=== PATIENT | female | born 1955 | race Caucasian/White ===

== ENCOUNTER 2016-06-27 07:52 | Outpatient (CLI) | payer MEDICAID ==
[2016-04-04 08:05] VITALS: BMI 17.8
[~2016-06-27 07:52] MED LIST: ATIVAN0.5 MG PO; FERROUS SULFAT325 MG PO; LEVOXYL175 MCG PO; NEURONTIN600 MG PO; PAXIL30 MG PO; PEPCID AC20 MG PO; PERCOCET 10/3251 TA1 PO; PLAVIX75 MG PO; PROTONIX40 MG PO; TRAZODONE HCL50 MG PO
[2016-06-27 09:20] LABS: BASOPHILS 0.3 % (0.0-2.0); EOSINOPHILS 0.6 % (0-7); HEMATOCRIT 45.4 % (36.0-48.0); HEMOGLOBIN 15.1 g/dL (12-16); IMMATURE GRANULOCYTES 0.3 % (0-5); LYMPHOCYTES 24.6 % (15-50); MCH 29.7 pg (26.0-34.0); MCHC 33.3 g/dL (31.0-37.0); MCV 89.2 fL (80.0-100.0); NEUTROPHILS 68.2 % (40-80); PLATELET COUNT 214 10x3/uL (130-400); RBC 5.09 10x6/uL (4.00-5.40); RDW 15.4 % (11.5-14.5); WBC 6.5 10x3/uL (4.8-10.8)
[2016-06-27 09:28] LABS: APTT 34.4 SECONDS (22.8-39.4); INR 1.03 (0.85-1.17); PROTIME 13.4 SECONDS (11.6-15.0)
== END 2016-06-27 07:53 | disposition home or self-care (01) ==
LOC: D.LAB 07:52 → D.OPS 07:53 → D.RT 08:00
PROVIDERS: Internal Medicine Pulmonary Disease
DX: J44.9 Chronic obstructive pulmonary disease, unspecified (principal)

== ENCOUNTER 2016-07-02 05:32 | Outpatient (CLI) | payer MEDICAID ==
[~2016-07-02] VITALS: Ht 167.6 cm; Wt 50.9 kg
[2016-07-02 06:55] LABS: BASOPHILS 0.7 % (0.0-2.0); EOSINOPHILS 2.5 % (0-7); HEMATOCRIT 39.7 % (36.0-48.0); IMMATURE GRANULOCYTES 0.4 % (0-5); LYMPHOCYTES 23.7 % (15-50); MCH 29.3 pg (26.0-34.0); MCHC 32.7 g/dL (31.0-37.0); MCV 89.4 fL (80.0-100.0); MEAN PLATELET VOLUME 10.6 fL (7.4-10.4); MONOCYTES 11.2 % (2-11); NEUTROPHILS 61.5 % (40-80); PLATELET COUNT 190 10x3/uL (130-400); RBC 4.44 10x6/uL (4.00-5.40); RDW 15.5 % (11.5-14.5); WBC 5.7 10x3/uL (4.8-10.8)
[2016-07-02 07:02] VITALS: BP 152/74; Ht 167.6 cm; Wt 50.9 kg
[2016-07-02 07:02] LABS: CALC OSMOLALITY 280 mosm/kg (275-300); CALCIUM 8.9 mg/dL (8.5-10.1); CARBON DIOXIDE 28.2 mmol/L (21.0-32.0); CHLORIDE - SERUM 104 mmol/L (98-107); CREATININE - SERUM 0.7 mg/dL (0.6-1.3); GLUCOSE 117 mg/dL (74-106); POTASSIUM - SERUM 4.1 mmol/L (3.5-5.1); SODIUM 141 mmol/L (136-145); UREA NITROGEN 9 mg/dL (7-18); eGFR NON AFRICAN AMERICAN > 90 mL/min (90-120)
[2016-07-02 07:03] LABS: APTT 35.6 SECONDS (22.8-39.4); INR 1.12 (0.85-1.17); PROTIME 14.3 SECONDS (11.6-15.0)
--- NOTE | 2016-07-02 09:16 | NUR ---
0900 RECEIVED PT FROM SPECIALS, PT IS ALERT, DRESSSING TO LEFT ANTERIOR UPPER CHEST IS CDI. RR IS EVEN AND UNLABORED ON 2 LPM O2 VIA NC. PT DENIES ANY C/O AT THIS TIME. SEE VS FLOW SHEET. 0910 BREAKFAST TRAY SERVED.
--- NOTE | 2016-07-02 10:38 | NUR ---
1035 PT HAS TOLERATED BREAKFAST TRAY WITH NO C.O NAUSEA. DENIES PAIN. DRESSING LEFT UPPER CHEST IS CDI. RR IS EVEN AND UNLABORED ON ROOM AIR. PT DENIES NEEDS AT THIS TIME, CALL LIGHT IS IN REACH.
--- NOTE | 2016-07-02 11:32 | NUR ---
1110 PORTABLE CHEST X RAY HAS BEEN DONE.
--- NOTE | 2016-07-02 12:46 | NUR ---
1245 PT DENIES ANY C/O. DRESSING TO CHEST IS CDI. SHELLEY, RN WITH [facility]IOLOGY HAS ROUNDED ON PT. IV HAS BEEN DC'D WITH CATH INTACT. PT IS DRESSING FOR DC TO HOME. IS AWAITING HER DAUGHTER TO ARRIVE TO PICK HER UP.
--- NOTE | 2016-07-02 13:11 | NUR ---
1305 PATIENT LEFT WITH FAMILY VIA W/C.
--- NOTE | 2016-07-02 13:12 | NUR ---
1300 REPORT FROM ABIGAIL VALADEZ R.N. LT ANTERIOR CHEST SITE NO BLEEDING NO COS OF PAIN AND CXR OKAY.
== END 2016-07-02 13:05 | disposition home or self-care (01) ==
LOC: D.OPS 05:32 → D.SP 08:00 → D.OPS 08:00
PROVIDERS: General Practice
DX: R91.8 Other nonspecific abnormal finding of lung field (principal); J43.9 Emphysema, unspecified; J98.11 Atelectasis; J90 Pleural effusion, not elsewhere classified

== ENCOUNTER 2016-08-21 06:56 | Outpatient (CLI) | payer MEDICAID ==
[~2016-08-21] VITALS: Ht 167.6 cm; Wt 51.8 kg
[2016-08-21 08:23] LABS: BASOPHILS 0.6 % (0.0-2.0); EOSINOPHILS 1.2 % (0-7); HEMATOCRIT 44.9 % (36.0-48.0); IMMATURE GRANULOCYTES 0.4 % (0-5); LYMPHOCYTES 27.6 % (15-50); MCH 29.6 pg (26.0-34.0); MCHC 33.4 g/dL (31.0-37.0); MCV 88.7 fL (80.0-100.0); MEAN PLATELET VOLUME 10.9 fL (7.4-10.4); NEUTROPHILS 62.2 % (40-80); PLATELET COUNT 196 10x3/uL (130-400); RBC 5.06 10x6/uL (4.00-5.40); RDW 14.5 % (11.5-14.5); WBC 5.1 10x3/uL (4.8-10.8)
[2016-08-21 08:32] LABS: APTT 32.7 SECONDS (22.8-39.4); INR 1.08 (0.85-1.17); PROTIME 13.9 SECONDS (11.6-15.0)
[2016-08-21 08:34] LABS: CALC OSMOLALITY 282 mosm/kg (275-300); CALCIUM 9.3 mg/dL (8.5-10.1); CHLORIDE - SERUM 105 mmol/L (98-107); CREATININE - SERUM 0.7 mg/dL (0.6-1.3); GLUCOSE 125 mg/dL (74-106); POTASSIUM - SERUM 4.1 mmol/L (3.5-5.1); SODIUM 142 mmol/L (136-145); UREA NITROGEN 9 mg/dL (7-18); eGFR NON AFRICAN AMERICAN > 90 mL/min (90-120)
[2016-08-21 08:52] VITALS: BP 176/86; Ht 167.6 cm; Wt 51.8 kg
== END 2016-08-21 09:43 ==
LOC: D.OPS 06:56 → D.CT 13:00 → D.RAD 13:00 → D.OPS 13:00 → D.CT 08-25 08:00
PROVIDERS: General Practice
DX: C82.93 Follicular lymphoma, unspecified, intra-abdominal lymph nodes (principal); D50.9 Iron deficiency anemia, unspecified; I25.10 Atherosclerotic heart disease of native coronary artery without angina pectoris; J44.9 Chronic obstructive pulmonary disease, unspecified; K21.9 Gastro-esophageal reflux disease without esophagitis; E78.5 Hyperlipidemia, unspecified; Z01.810 Encounter for preprocedural cardiovascular examination; Z01.811 Encounter for preprocedural respiratory examination; Z01.812 Encounter for preprocedural laboratory examination; Z53.9 Procedure and treatment not carried out, unspecified reason

== ENCOUNTER 2016-09-15 05:08 | Day surgery (SDC) | payer MEDICAID ==
--- NOTE | 2016-09-13 12:15 | HP ---
PATIENT: ANETTE LEWIS MEDICAL RECORD: [id number] ACCOUNT: [id number] LOCATION:D.OPS : 59 ADMISSION DATE: 09/15/16 HISTORY AND PHYSICAL EXAMINATION ANETTE Hughes (60yo, F) ID# [id number]. Date/Time09/05/2016 10:17TYSBZ24/1956[facility] Dept.NPP_[facility] ClinicProviderEDWILLIE WELSH MDInsuranceMed Primary: [place]) Insurance # : [id number] PCP : RICARDO WALLS Referring Provider Name : RICARDO WALLS Employer Name : RETIRED Prescription: [facility] MEDICAID [facility] - Member is eligible. Chief Complaint Lung mass referral for bronch/mediastinoscopy Patient's Care Team Primary Care Provider (): RICARDO WALLS: [address] [place] [phone], , Referring Provider (): RICARDO WALLS: [address] [place] [phone], , Roofer Vinyl Coating: PORSCHE CALLES MD: [address] [phone], , Other: ARNOLD DILL MD: [address] [place] [address], , Patient's Pharmacies [facility] (ERX): [address] [place] [address] [place] [address], , Vitals BP:152/90 sitting R arm 09/05/2016 11:05 amHR:88R/R 09/05/2016 11:05 amHt:5 ft 6 in 09/05/2016 10:47 amWt:112 lbs 09/05/2016 11:04 amBMI:18.1 09/05/2016 11:04 amAllergies Reviewed Allergies NKDAMedications Reviewed Medications Anoro Ellipta 62.5 mcg-25 mcg/actuation powder for inhalation Inhale 1 puff(s) every day by inhalation route.07/10/16 Ariadna Calles MDfamotidine 20 mg /04/16 filledMagellan Medicaid Administrationfluticasone 50 mcg/actuation nasal spray,suspension [place] 2 spray(s) every day by intranasal route.06/12/16 filled[place] Medicaid Administrationgabapentin 600 mg lshuys10/12/17 filledMag[place] Medicaid Administrationlevothyroxine 200 mcg uveokp68/25/15 filledCtgellan Medicaid AdministrationLORazepam 0.5 mg fzdmuw15/07/16 filled[place] Medicaid AdministrationoxyCODONE-acetaminophen 10 mg-325 mg ddvubq22/01/17 filled[place] Medicaid Administrationpantoprazole 40 mg tablet,delayed fbgdwas31/08/17 filled[place] Medicaid AdministrationPARoxetine 40 mg gsupqh40/06/17 filled[place] Medicaid AdministrationtraZODone 50 mg ddryeb68/13/16 filledMag[place] Medicaid AdministrationProblems Reviewed Problems Solitary nodule of lung - Onset: 09/05/2016 Mediastinal mass - Onset: 09/05/2016 History of malignant lymphoma - Onset: 09/05/2016 Gastroesophageal reflux disease Jean's esophagus HISTORY AND PHYSICAL [id number] ANETTE LEWIS Malignant tumor of lung - Onset: 09/03/2016, Left Vascular ectasia of gastric antrum Polyp of duodenum Family History Discussed Family History Mother- Well adultFather- Heart diseaseBrother- AneurysmSocial History Discussed Social History General Marital status: Smoking Status: Current every day smoker Smoker (1 PPD) (Notes: up to 1.5 pack per day and started at 18) Alcohol intake: None Caffeine intake: Occasional Surgical History Reviewed Surgical History CABG SENIOR DATABASE ADMINISTRATOR History (not configured) Obstetric History Obstetric History not reviewed (last reviewed 07/12/2016) Past Medical History Discussed Past Medical History Cancer: Y Coronary Artery Disease: Y Heart Disease: Y Hypothyroidism: Y Notes: osteopenia, non-Hodgkin's lymphoma around pancr eas in [address] Arnold Dill with chemotherapy in remission with no new adjuvant radiation, neuropathy, CT bx DONNA with chrondroma. Documents for Discussion N/A Screening None recorded. HPI Dyspnea Reported by patient. Quality: dyspnea Onset/Timing: daily Context: with activity tumor left upper lobe Mediastinal adenopathy History malignant lymphoma ROS Patient reports weight loss (20 lbs) but reports no fever, no night sweats, no significant weight gain, and no exercise intolerance. She reports muscle aches but reports no muscle weakness, no arthralgias/joint pain, no back pain, and no swelling in the extremities. She reports depression but reports no sleep disturbances, feeling safe in relationship, and no alcohol abuse. She reports fatigue and hair loss. She reports no dry eyes, no irritation, and no vision change. She reports no difficulty hearing and no ear pain. She reports no frequent nosebleeds and no nose/sinus problems. She reports no sore throat, no bleeding gums, no snoring, no dry mouth , no mouth ulcers, no oral abnormalities, and no teeth problems. She HISTORY AND PHYSICAL [id number] JOSHUAANETTE RETA reports no jugular vein distension and no swollen glands. She reports no chest pain, no arm pain on exertion, no shortness of breath when walking, no shortness of breath when lying down, no palpitations, and no known heart murmur. She reports no cough, no wheezing, no shortness of breath, and no coughing up blood. She reports no abdominal pain, no vomiting, normal appetite, no diarrhea, not vomiting blood, no nausea, and no constipation. S he reports no incontinence, no difficulty urinating, no hematuria, and no increased frequency. She reports no abnormal mole, no jaundice, and no rashes. She reports no loss of consciousness, no weakness, no numbness, no seizures, no dizziness, and no head aches. She reports no swollen glands and no bruising. She reports no runny nose, no sinus pressure, no itching, no hives, and no frequent sneezing. ROS as noted in the HPI Physical Exam Patient is a 60-year-old female. Constitutional: General Appearance: too thin. Level of Distress: no acute distress. Ambulation: ambulating normally. Ears: Cerumen negative. Canal: no erythema or swelling. Tympanic Membrane: no bulging or fluid and perforated. Nasal: Nasal Mucosa: normal, no discharge, and pink and moist. Septum: not markedly deformed. Oropharynx: Lips, Teeth, and Gums normal dentition and lips. Oral Mucosa no ulcer, mass, inflammation, swelling, or leukoplakia and moist. Palate: normal hard palate and soft palate. Tongue: no erythema, lesi ons, enlargement, or swelling. Tonsils: no enlargement or lesions. Posterior Pharynx no enlargement, erythema, exudate, ulcers, mass, cobblestoning, or white patches. Neck: Neck: supple, trachea midline, no masses, and Full ROM. Thyroid: no enlargement or nodules and non-tender. Jugular Veins: no jugular venous distention or bush a waves present and normal jugular venous pressure. Lungs: Respiratory effort: unlabored. Inspection: normal curve and chest wall expansion; no deformity, tenderness, or swelli ng; and tactile fremitus present and equal on both sides. Auscultation: no wheezing, rales/crackles, or rhonchi and breath sounds normal. Percussion: hyperresonance. Cardiovascular: Precordial Exam: non displaced focal PMI. Heart Rate And Rhythm: normal h eart rate and rhythm. Heart Sounds: no gallop, click, physiologically split S2, or pericardial friction rub and normal s1. Systolic Murmur: no systolic murmurs. Diastolic Murmur: no diastolic murmurs. Observation/Palpation of peripheral vascular system: n o cyanosis or varicosity changes and normal dorsalis pedis and posterior tibialis. Abdomen: Inspection and Palpation: no tenderness or masses and soft and non-distended. Liver: non-tender and no hepatomegaly. Spleen: non-tender and no splenomegaly. Bowel S ounds: normal and no abdominal bruits. Lymphatic: no cervical lymph enlargement, axillary LAD, inguinal LAD, femoral LAD, supraclavicular LAD, or popliteal LAD. Musculoskeletal:: Motor Strength and Tone: normal bulk, tone, and motor strength. Gait and Sta tion: normal gait, station, and tandem gait. Joints, Bones, and Muscles: no contractures, malalignment, tenderness, scoliosis, kyphosis, or bony HISTORY AND PHYSICAL [id number] ANETTE LEWIS abnormalities and normal movement of all extremities. Extremities: Inspection/Palpation of digits and nails: no clubbing, cyanosis, petechiae, ischemia, edema, or nodular lesions; no palpable adenopathy. Skin: Inspection and palpation: no rash, lesions, jaundice, ulcer, erythema, or induration and normal turgor. Neurologic: Mental Status/Orientation: oriented to person, place, problem/situation, and time. Mood/Affect: normal mood and affect. Sensation sensation normal. Cranial Nerves cranial nerves II - XII intact. Deep Tendon Reflexes upper extremities positive and lower extremities positive. Assessment / Plan solitary pulmonary nodule Mediastinal adenopathy History of malignant lymphoma 1. Solitary nodule of lung R91.1: Solitary pulmonary nodule 2. History of malignant lymphoma Z85.72: Personal history of non-Hodgkin lymphomas 3. Mediastinal mass R22.2: Localized swelling, mass and lump, trunk Discussion Notes agree with Dr. Calles. The patient would benefit from bronchoscopy mediastinoscopy for a diagnosis of mediastinal lymphadenopathy.. The lesion in the left upper lobe may be a hamartoma. I hav e discussed her disease process with her in detail as well as the alternative methods of treatment. We discussed bronchoscopy mediastinoscopy and the expected benefits and risk leaving, infection, stroke, and , and the imponderables. She understands all of the above and wishes to proceed with planned procedure. JUVENTINO WELSH MD at 1215 CC: [id number] DICTATION DATE: 09/05/16 1015 RESIDENT CARE COORDINATOR: TITI 09/10/16 1423 [facility] [address] [place] [address]
[~2016-09-15] VITALS: Ht 162.6 cm; Wt 50.5 kg
--- NOTE | ~2016-09-15 | OP ---
PATIENT NAME: ANETTE LEWIS MEDICAL RECORD: [id number] :59 LOCATION:.[facility] ADMISSION DATE: SURGEON: JUVENTINO VAZQUEZ MD DATE OF OPERATION: 09/15/2016 SURGEON: Juventino Vazquez MD ANESTHESIA: General, Dr. Steele. OPERATION PERFORMED: 1. Mediastinoscopy with biopsies and cultures. 2. Flexible fiberoptic bronchoscopy with bronchioalveolar lavage. PREOPERATIVE DIAGNOSIS: Mediastinal lymphadenopathy. POSTOPERATIVE DIAGNOSIS: Granulomatous mediastinal lymphadenopathy. INDICATION FOR OPERATION: Mediastinal lymphadenopathy. FINDINGS OF THE OPERATION: Mediastinal lymphadenopathy frozen section demonstrated no tumor and granulomatous disease. SPECIMENS: 1. Subcarinal lymph node biopsy. 2. Pretracheal lymph node. 3. Left paratracheal lymph node. 4. Tissue cultures of the mediastinum for TB and routine bilateral bronchial washings for TB and fungus. ESTIMATED BLOOD LOSS: Less than 5 cc. DESCRIPTION OF PROCEDURE: After informed consent, adequate preoperative medication evaluation, the patient was brought to the operating room and placed on the table in the supine position. After induction of general endotracheal anesthesia and application of appropriate monitoring devices, the neck and chest were prepped and draped in a sterile field, utilizing Betadine scrub, alcohol, and Betadine solution. Betadine-impregnated drape was also used. A small 2-cm transverse incision was made, 2 cm above the sternal notch. Dissection carried down the fascia. Hemostasis maintained with electrocautery. The pretracheal fascia was entered and scope was advanced to the collin. There were large lymph nodes at the subcarinal area. Biopsies were taken. The scope was then withdrawn into the pretracheal area. After aspiration, another set of biopsies were taken anteriorly. Attention was then turned toward the left lateral lymph node and biopsies were taken of this area. Hemostasis was assured. Wound was irrigated. Cultures were taken of the mediastinal lymph nodes in the subcarinal area. The scope was then removed. The neck was closed with 3-0 Vicryl on the platysma, 5-0 subcuticular Monocryl on the skin. Sterile dressings were applied. The patient then underwent flexible fiberoptic bronchoscopy. The tracheobronchial tree was normal bilaterally. Bronchioalveolar lavage was performed in both upper lobes. The right and left for TB and fungus. The scope was removed. The patient awakened and transferred to the postanesthesia recovery in satisfactory condition. TRANSINT:[id number] Voice Confirmation ID: [id number] DOCUMENT ID: [id number] OPERATIVE REPORT [id number] ANETTE LEWIS EDWARD MD CC: [id number] DICTATION DATE: 09/15/16899 CAREER TECHNICAL SUPERVISOR: 09/15/16 1053 [facility] [address] [place] [id number]
[2016-09-15 05:51] VITALS: BP 145/64; Ht 162.6 cm; Wt 50.5 kg
[2016-09-15 06:10] LABS: BASOPHILS 0.3 % (0.0-2.0); EOSINOPHILS 0.8 % (0-7); HEMATOCRIT 43.7 % (36.0-48.0); HEMOGLOBIN 14.8 g/dL (12-16); IMMATURE GRANULOCYTES 0.2 % (0-5); LYMPHOCYTES 21.5 % (15-50); MCH 29.7 pg (26.0-34.0); MCHC 33.9 g/dL (31.0-37.0); MCV 87.6 fL (80.0-100.0); MEAN PLATELET VOLUME 10.8 fL (7.4-10.4); MONOCYTES 6.8 % (2-11); NEUTROPHILS 70.4 % (40-80); PLATELET COUNT 225 10x3/uL (130-400); RBC 4.99 10x6/uL (4.00-5.40); RDW 14.7 % (11.5-14.5); WBC 6.1 10x3/uL (4.8-10.8)
[2016-09-15] MEDS ORDERED: NORVASC5 MG PO (06:11)
[2016-09-15 06:13] LABS: INR 0.98 (0.85-1.17); PROTIME 12.8 SECONDS (11.6-15.0)
[2016-09-15 06:43] LABS: ALBUMIN 3.4 g/dL (3.4-5.0); ALKALINE PHOSPHATASE 173 U/L (46-116); ALT (SGPT) 21 U/L (10-68); CALC OSMOLALITY 280 mosm/kg (275-300); CALCIUM 9.1 mg/dL (8.5-10.1); CARBON DIOXIDE 26.6 mmol/L (21.0-32.0); CHLORIDE - SERUM 104 mmol/L (98-107); CREATININE - SERUM 0.7 mg/dL (0.6-1.3); GLUCOSE 127 mg/dL (74-106); POTASSIUM - SERUM 3.6 mmol/L (3.5-5.1); PROTEIN - SERUM 6.6 g/dL (6.4-8.2); SODIUM 141 mmol/L (136-145); UREA NITROGEN 8 mg/dL (7-18); eGFR NON AFRICAN AMERICAN > 90 mL/min (90-120)
--- NOTE | 2016-09-15 08:42 | NUR ---
CULTURE SWAB TO LAB FOR TB CULTURE
--- NOTE | 2016-09-15 09:22 | NUR ---
0908 PT'S B/P 193/ DR. BENITEZ'S AT BEDSIDE. NEW ORDERS REC'D HYDRALIZINE GIVEN PER MD'S ORDER.
--- NOTE | 2016-09-15 15:07 | NUR ---
6643 DISCHARGE INSTRUCTIONS REVIEWED WITH PATIENT; VERBALIZED UNDERSTANDING
[2016-09-16 17:10] LABS: ACID FAST SMEAR Negative (()); AFB SPECIMEN PROCESSING Concentration (())
[2016-09-17 13:16] LABS: FUNGUS STAIN Final report (())
== END 2016-09-15 11:50 | disposition home or self-care (01) ==
LOC: D.OPS 05:08
PROVIDERS: Internal Medicine Cardiovascular Disease
DX: J98.59 Other diseases of mediastinum, not elsewhere classified (principal); F17.200 Nicotine dependence, unspecified, uncomplicated; E03.9 Hypothyroidism, unspecified; I25.10 Atherosclerotic heart disease of native coronary artery without angina pectoris; M85.80 Other specified disorders of bone density and structure, unspecified site; K21.9 Gastro-esophageal reflux disease without esophagitis; Z95.1 Presence of aortocoronary bypass graft; Z85.72 Personal history of non-Hodgkin lymphomas

== ENCOUNTER → 2016-09-25 10:14 | Outpatient (CLI) | payer MEDICAID ==
[2016-09-15 05:51] VITALS: BMI 19.2
[~2016-09-25 10:14] MED LIST changes: +NORVASC5 MG PO
== END | disposition home or self-care (01) ==
LOC: D.RAD 10:14
DX: Z98.890 Other specified postprocedural states (principal)

== ENCOUNTER → 2016-10-08 13:42 | Outpatient (CLI) | payer MEDICAID ==
[2016-09-15 05:51] VITALS: BMI 19.2
[2016-10-08 14:16] LABS: CREATININE - SERUM 0.8 mg/dL (0.6-1.3)
== END | disposition home or self-care (01) ==
LOC: D.LAB 13:42 → D.CT 14:30
PROVIDERS: Internal Medicine Pulmonary Disease
DX: R91.8 Other nonspecific abnormal finding of lung field (principal)

== ENCOUNTER 2016-11-12 05:00 | Inpatient (IN) | payer MEDICAID ==
--- NOTE | 2016-11-10 08:32 | HP ---
PATIENT: ANETTE LEWIS MEDICAL RECORD: [id number] ACCOUNT: [id number] LOCATION:[facility] : 59 ADMISSION DATE: 11/12/16 HISTORY AND PHYSICAL EXAMINATION ANETTE Hughes (60yo, F) ID# [id number]. Date/Time11/06/2016 01:[id number] 1957Service Dept.NPP_[facility] ClinicProviderEDWILLIE WELSH MDInsuranceMed Primary: [place] ([place]) Insurance # : [id number] PCP : RICARDO WALLS Referring Provider Name : RICARDO WALLS Employer Name : RETIRED Prescription: [facility] MEDICAID [facility] - Member is eligible. Chief Complaint Followup: Mediastinal mass Followup: Solitary nodule of lung s/p CABG 10/09/04 s/p bronch/mediastinoscopy 09/15/16 Patient's Care Team Primary Care Provider (): RICARDO WALLS: [address] [place] [phone], , Referring Provider (): RICARDO WALLS: [address] [place] [phone], , Tunnel Drier Operator: PORSCHE CALLES MD: [address] [phone], , Other: ARNOLD DILL MD: [address] [place] [address], , Patient's Pharmacies [facility] (ERX): [address] [place] [phone], , Vitals BP:150/82 sitting R arm 11/06/2016 02:18 pmHR:80R/R 11/06/2016 02:18 pmHt:5 ft 6 in 11/06/2016 02:14 pmWt:110 lbs 11/06/2016 02:17 pmBMI:17.8 11/06/2016 02:17 pmAllergies Allergies not reviewed (last reviewed 10/16/2016) NKDAMedications Medications not reviewed (last reviewed 10/16/2016) Anoro Ellipta 62.5 mcg-25 mcg/actuation powder for inhalation Inhale 1 puff(s) every day by inhalation route.10/23/16 Ariadna Calles MDfamotidine 20 mg axvqag00/04/16 filledMagellan Medicaid Administrationfluticasone 50 mcg/actuation nasal spray,suspension [place] 2 spray(s) every day by intranasal route.06/12/16 filledMag[place] Medicaid Administrationgabapentin 600 mg keliii98/12/17 filledMag[place] Medicaid Administrationlevothyroxine 200 mcg rlodpy29/25/15 filledVagellan Medicaid AdministrationLORazepam 0.5 mg /07/16 filled[place] Medicaid AdministrationoxyCODONE-acetaminophen 10 mg-325 mg hijwnr60/01/17 filled[place] Medicaid Administrationpantoprazole 40 mg tablet,delayed ctekefd74/08/17 [facility]Ad[facility]lan Medicaid AdministrationPARoxetine 40 mg viipbn96/06/17 filledVagellan Medicaid AdministrationtraZODone 50 mg ryhame51/13/16 filledVagellan Medicaid AdministrationProblems Reviewed Problems Solitary nodule of lung - Onset: 09/05/2016 Mediastinal mass - Onset: 09/05/2016 History of malignant lymphoma - Onset: 09/05/2016 HISTORY AND PHYSICAL [id number] ANETTE LEWIS Gastroesophageal reflux disease Jean's esophagus Malignant tumor of lung - Onset: 09/03/2016, Left Vascular ectasia of gastric antrum Polyp of duodenum Family History Discussed Family History Mother- Well adultFather- Heart diseaseBrother- AneurysmSocial History Discussed Social History General Marital status: Smoking Status: Current every day smoker Smoker (1 PPD) (Notes: up to 1.5 pack per day and started at 18) Alcohol intake: None Caffeine intake: Occasional Surgical History Reviewed Surgical History CABG NET SQL DEVELOPER History (not configured) Obstetric History Obstetric History not reviewed (last reviewed 07/12/2016) Past Medical History Discussed Past Medical History Cancer: Y Coronary Artery Disease: Y Heart Disease: Y Hypothyroidism: Y Notes: osteopenia, non-Hodgkin's lymphoma around pancr eas in [address] Arnold Dill with chemotherapy in remission with no new adjuvant radiation, neuropathy, CT bx DONNA with chrondroma. Documents for Discussion N/A Screening None recorded. HPI Dyspnea Reported by patient. Associated Symptoms: no chest pain; no palpitations; no orthopnea; no PND; no fever; no chills; no wheezing; no dietary indiscretion; no sputum production; no hemoptysis; no weight gain; no dyspepsia solitary pulmonary nodule left upper lobe ROS Patient reports no fever, no night sweats, no significant weight gain, and no exercise intolerance; fatigue. She reports muscle aches but reports no muscle weakness, no arthralgias/joint pain, no back pain, and no swelling in the extremities. She reports depression but reports no sleep disturbances, feeling safe in relationship, and no alcohol abuse. She reports fatigue and hair loss. She reports no dry eyes, no irritation, and no vision change. She reports no difficulty hearing and no ear pain. She reports no frequent nosebleeds and no nose/s inus problems. She reports no sore throat, no bleeding gums, no snoring, no dry mouth, no mouth ulcers, no oral abnormalities, and no teeth problems. She reports no jugular HISTORY AND PHYSICAL [id number] JOSHUA,ANETTE RETA vein distension and no swollen glands. She reports no chest pain, no arm pain on e x ertion, no shortness of breath when walking, no shortness of breath when lying down, no palpitations, and no known heart murmur. She reports no cough, no wheezing, no shortness of breath, and no coughing up blood. She reports no abdominal pain, no vomitin g , normal appetite, no diarrhea, not vomiting blood, no nausea, and no constipation. She reports no incontinence, no difficulty urinating, no hematuria, and no increased frequency. She reports no abnormal mole, no jaundice, and no rashes. She reports no lo ss of consciousness, no weakness, no numbness, no seizures, no dizziness, and no headaches. She reports no swollen glands and no bruising. She reports no runny nose, no sinus pressure, no itching, no hives, and no frequent sneezing. ROS as noted in the HPI Physical Exam Patient is a 60-year-old female. Constitutional: General Appearance: well nourished and well developed. Level of Distress: no acute distress. Ambulation: ambulating normally. Ears: Cerumen negative. Canal: no erythema or swelling. Tympanic Membrane: no bulging or fluid and perforated. Nasal: Nasal Mucosa: normal, no discharge, and pink and moist. Septum: not markedly deformed. Oropharynx: Lips, Teeth, and Gums normal dentition and lips. Oral Mucosa no ulcer, mass, inflammation, swelling, or leukoplakia and moist. Palate: normal hard palate and soft palate. Tongue: no erythema, lesions, enlargement, or swelling. Tonsils: no enlargement or lesions. Posterior Pharynx no enlargement, e rythema, exudate, ulcers, mass, cobblestoning, or white patches. Neck: Neck: supple, trachea midline, no masses, and Full ROM. Thyroid: no enlargement or nodules and non-tender. Jugular Veins: no jugular venous distention or bush a waves present and normal jugular venous pressure. Lungs: Respiratory effort: unlabored. Inspection: normal curve and chest wall expansion; no deformity, tenderness, or swelling; and tactile fremitus present and equal on both sides. Auscultation: no wheezing, rales/crackles, or rhonchi and breath sounds normal. Percussion: no dullness, flatness, or hyperresonance. Cardiovascular: Precordial Exam: non displaced focal PMI. Heart Rate And Rhythm: normal heart rate and rhythm. Heart Sounds: no gallop, click, physiologically split S 2, or pericardial friction rub and normal s1. Systolic Murmur: no systolic murmurs. Diastolic Murmur: no diastolic murmurs. Observation/Palpation of peripheral vascular system: no cyanosis or varicosity changes and normal dorsalis pedis and posterior tibi kurtis. Abdomen: Inspection and Palpation: no tenderness or masses and soft and non-distended. Liver: non-tender and no hepatomegaly. Spleen: non-tender and no splenomegaly. Bowel Sounds: normal and no abdominal bruits. Lymphatic: no cervical lymph enlargeme nt, axillary LAD, inguinal LAD, femoral LAD, supraclavicular LAD, or popliteal LAD. Musculoskeletal:: Motor Strength and Tone: normal bulk, tone, and motor strength. Gait and Station: normal gait, station, and tandem gait. Joints, Bones, and Muscles: no c ontractures, malalignment, tenderness, scoliosis, kyphosis, or bony HISTORY AND PHYSICAL [id number] ANETTE LEWIS abnormalities and normal movement of all extremities. Extremities: Inspection/Palpation of digits and nails: no clubbing, cyanosis, petechiae, ischemia, edema, or nodular lesions; no palpable adenopathy. Skin: Inspection and palpation: no rash, lesions, jaundice, ulcer, erythema, or induration and normal turgor. Neurologic: Mental Status/Orientation: oriented to person, place, problem/situation, and time. Mood/Affect: normal mood and aff ect. Sensation sensation normal. Cranial Nerves cranial nerves II - XII intact. Deep Tendon Reflexes upper extremities positive and lower extremities positive. Assessment / Plan solitary pulmonary nodule left upper lobe 1. Solitary nodule of lung R91.1: Solitary pulmonary nodule Discussion Notes solitary pulmonary nodule left upper lobe. I have discussed her disease process with her and her daughter in detail as well as the alternative methods of treatment. We discussed left upper lobe resection and mediastinal lymphadenectomy and the expected benefits and risk which included bleeding, infection, stroke, , and the imponderables. She understands all of the above and wishes to proceed with left upper lobe re section JUVENTINO WELSH MD at 0832 CC: [id number] DICTATION DATE: 11/06/16 1330 SYSTEMS DESIGNER: TITI 11/09/16 1015 [address] [place] [address] [place] [address]
[2016-11-11 14:54] LABS: HEMATOCRIT 43.7 % (36.0-48.0); HEMOGLOBIN 14.9 g/dL (12-16); MCH 30.3 pg (26.0-34.0); MCHC 34.1 g/dL (31.0-37.0); MCV 88.8 fL (80.0-100.0); MEAN PLATELET VOLUME 10.4 fL (7.4-10.4); RBC 4.92 10x6/uL (4.00-5.40); RDW 14.2 % (11.5-14.5); WBC 6.5 10x3/uL (4.8-10.8)
[2016-11-11 15:03] LABS: APPEARANCE CLEAR (CLEAR); BILIRUBIN NEGATIVE (NEGATIVE); COLOR YELLOW (YELLOW); GLUCOSE NEGATIVE (NEGATIVE); KETONE NEGATIVE (NEGATIVE); LEUKOCYTE ESTERASE NEGATIVE (NEGATIVE); NITRITE NEGATIVE (NEGATIVE); PROTEIN NEGATIVE (NEGATIVE); UROBILINOGEN NORMAL (NORMAL)
[2016-11-11 15:17] LABS: PROTIME 13.1 SECONDS (11.6-15.0)
[2016-11-11 15:18] LABS: APTT 33.3 SECONDS (22.8-39.4)
[2016-11-11 15:36] LABS: ALBUMIN 3.9 g/dL (3.4-5.0); ALKALINE PHOSPHATASE 198 U/L (46-116); ALT (SGPT) 18 U/L (10-68); BILIRUBIN - TOTAL 0.31 mg/dL (0.2-1.3); CALC OSMOLALITY 270 mosm/kg (275-300); CALCIUM 8.9 mg/dL (8.5-10.1); CARBON DIOXIDE 27.3 mmol/L (21.0-32.0); CHLORIDE - SERUM 99 mmol/L (98-107); CREATININE - SERUM 0.8 mg/dL (0.6-1.3); GLUCOSE 96 mg/dL (74-106); POTASSIUM - SERUM 3.3 mmol/L (3.5-5.1); PROTEIN - SERUM 6.5 g/dL (6.4-8.2); SODIUM 136 mmol/L (136-145); UREA NITROGEN 9 mg/dL (7-18); eGFR NON AFRICAN AMERICAN 78 mL/min (90-120)
[2016-11-12] VITALS (53 sets, daily range): BP systolic 92–163; BP diastolic 43–72; BMI 17.8; BMI 19.0
[~2016-11-12] VITALS: Ht 167.6 cm; Wt 52.5 kg
[~2016-11-12 05:00] MED LIST changes: +NORVASC10 MG PO; -NORVASC5 MG PO; -PAXIL30 MG PO; +PAXIL40 MG PO
--- NOTE | 2016-11-12 11:15 | NUR ---
RECEIVED PT TO ROOM CV04, ICU MONITORS CONNECTED.
--- NOTE | 2016-11-12 14:14 | NUR ---
11/12/2016 14:12 DCP: Discharge Planning Patient Name: KACI BELLA Encounter No: [id number] : 10-11-1945 Primary Insurance: MEDICARE A & B Anticipated DC Date: 11-12-2016 Planned Disposition: Home External Planned Provider: [facility] DCP follow-up note: DC order rec'd. [facility] referral faxed. Patient and family in agreement with discharge plan. No changes to plan. Fernanda Lynn
--- NOTE | 2016-11-12 14:42 | NUR ---
CALLED [employer]ENTRAL SUPPLY FOR KPAD.
--- NOTE | 2016-11-12 15:18 | NUR ---
KPAD PLACED ON PT LEFT SHOULDER.
--- NOTE | 2016-11-12 15:30 | NUR ---
FAMILY AT BEDSIDE, UPDATED BY DR WELSH.
--- NOTE | 2016-11-12 18:15 | NUR ---
I/S PERFORMED X10, PULLING 750-1000.
--- NOTE | 2016-11-12 18:30 | NUR ---
SPOKE WITH DR WELSH VIA PHONE, ELEVATED TEMP REPORTED. NEW ORDERS RECEIVED.
--- NOTE | 2016-11-12 19:00 | NUR ---
REPORT RECEIVED AND ASSESSMENT COMPLETED. SEE FLOWSHEET FOR FULL DETAILS. PT IS A FRESH TUMOR REMOVAL/ PARTIAL LUNG RESECTION FROM OR TODAY. ANTERIOR AND POSTERIOR CHEST TUBES ON LEFT SIDE. 20 SM SUCTION. NO SIGN OF LEAK. 4 ML FROM ANTERIOR DRAIN 10 FROM POSTERIOR FOR THE LAST HOUR. O2 SAT 94% LUNG SOUNDS CLEAR BUT DEMINISHED ON LEFT SIDE. PT HAS EPIDURAL IN PLACE. DENIES NAUSEA, ITCHING, AND PARASTHESIAS AT THIS TIME. NITRO DRIP AT 0.5. WILL CONTINUE TO MONITOR PRESSURE AND TITRATE NEEDED. VSS.
--- NOTE | 2016-11-12 21:00 | NUR ---
URINE OUTPUT HAS BEEN LOW. PT WAS GIVEN LASIX DURING DAY SHIFT. CVP RUNNING 5. WILL CONTINUE TO MONITOR FOR CHANGES THAT MAY ARISE.
--- NOTE | 2016-11-12 23:00 | NUR ---
DR WELSH CALLED IN REGARD TO URINE OUTPUT, AND ABGS. NEW ORDERS RECEIVED. WILL ADMINISTER KCL 40 MEQ OVER 4 HR AND RECHECK LAB AFTERWARDS. REASSESSMENT COMPLETED AT THIS TIME. SEE FLOWSHEET FOR FULL DETAILS.
[2016-11-13] VITALS (92 sets, daily range): BP systolic 108–155; BP diastolic 42–73; Ht 167.6 cm; Wt 52.5 kg
--- NOTE | 2016-11-13 01:00 | NUR ---
PT B/P ELEVATED. TITRATING NITRO ORDERED.
--- NOTE | 2016-11-13 03:00 | NUR ---
REASSESSMENT COMPLETED. SEE FLOWSHEET FOR FULL DETAILS. NITRO HAS BEEN MAXED OUT. REPLACED WITH CLEVIPREX. NOW RUNNING AT 12 MG/HR. WILL TITRATE ORDERED TO OBTAIN B/P WITHIN PARAMETERS.
--- NOTE | 2016-11-13 05:00 | NUR ---
CONTINUING TO TITRATE CLEVIPREX TO EFFECT ORDERED. VSS. WILL MONITOR
[2016-11-13 05:58] LABS: HEMATOCRIT 38.5 % (36.0-48.0); HEMOGLOBIN 13.1 g/dL (12-16); MCH 30.4 pg (26.0-34.0); MCV 89.3 fL (80.0-100.0); MEAN PLATELET VOLUME 10.6 fL (7.4-10.4); RBC 4.31 10x6/uL (4.00-5.40); RDW 14.6 % (11.5-14.5)
[2016-11-13 06:37] LABS: ALBUMIN 3.1 g/dL (3.4-5.0); ALKALINE PHOSPHATASE 250 U/L (46-116); CALCIUM 8.7 mg/dL (8.5-10.1); CARBON DIOXIDE 23.5 mmol/L (21.0-32.0); CHLORIDE - SERUM 102 mmol/L (98-107); CREATININE - SERUM 0.8 mg/dL (0.6-1.3); POTASSIUM - SERUM 3.8 mmol/L (3.5-5.1); PROTEIN - SERUM 6.3 g/dL (6.4-8.2); SODIUM 137 mmol/L (136-145); eGFR NON AFRICAN AMERICAN 78 mL/min (90-120)
[2016-11-13 06:42] LABS: ALT (SGPT) 87 U/L (10-68); CALC OSMOLALITY 281 mosm/kg (275-300); GLUCOSE 200 mg/dL (74-106); UREA NITROGEN 17 mg/dL (7-18)
--- NOTE | 2016-11-13 07:00 | NUR ---
ASSESSMENT COMPLETE PER FLOW SHEET. REPOSTIONED IN BED. VSS. NO C/O AT THIS TIME.
--- NOTE | 2016-11-13 07:45 | NUR ---
DR. WELSH AT BEDSIDE. NEW ORDERS REC'D AND IMPLEMENTED.
--- NOTE | 2016-11-13 08:00 | NUR ---
DR. MANDEL WITH ANESTHESIA AT BEDSIDE CHECKING EPIDURAL. 10CC BOLUS GIVEN FOR PAIN LEVEL OF 6/10.
--- NOTE | 2016-11-13 11:00 | NUR ---
REASSESSMENT COMPLETE PER FLOW SHEET.. NO CHANGES NOTED FROM PREVIOUS ASSESSMENT.
--- NOTE | 2016-11-13 12:20 | NUR ---
RECEIVED PT FOR CARE FROM PAULINO MCLAUGHLIN RN.
--- NOTE | 2016-11-13 12:30 | NUR ---
LUNCH TRAY SERVED, REFUSED. VSS. NO C/O PAIN AT THIS TIME. WILL CONTINUE TO MONITOR.
--- NOTE | 2016-11-13 13:06 | NUR ---
* Is the patient Alert and Oriented? Yes 0 * How many steps to enter\exit or inside your home? 3 0 * PCP Dr. Campbell 0 * Pharmacy [facility] on [address] 0 * Preadmission Environment Home with Family 0 * ADLs Independent 0 * List name and contact numbers for known caregivers / representatives who currently or will assist patient after discharge: Spouse - Kendall Daughter - Estella Rivera [phone] Son in law - Angelito Rivera [phone] Son - Aashish Lewis [phone] 0 * Additional services required to return to the preadmission environment? No 0 * Can the patient safely return to the preadmission environment? Yes 0 * Has this patient been hospitalized within the prior 30 days at any hospital? No 11/13/2016 13:06 DCP: Discharge Planning Patient Name: ANETTE LEWIS Admission Status: Elective Accout number: [id number] Admission Date: 11-12-2016 : 1955 Admission Diagnosis: Attending: SAMANTHA Current LOS: 1 Anticipated DC Date: 11-18-2016 Planned Disposition: Home Primary Insurance: MEDICAID [place] Discharge Planning Comments: CM met with patient to assess dc plans/needs. Patient states she lives a home with her Kendall, who she is states is not in good health. Prior to admission, she reports she was independent with all ADL's & IADL's, not using any assistive devices for mobility. She states she has not had home health services in the past. At DC, she plans to return home with her . She states she has good family support - her daughter will be staying with her for several days to assist during her recovery. No needs identified or verbalized at this time. CM will follow & assist with DC needs.
--- NOTE | 2016-11-13 14:05 | NUR ---
PT'S O2 SAT DOWN TO 86%. AT BEDSIDE. ENCOURAGED PT TO DEEP BREATHE/COUGH. PT PULLING 750 ON INCENTIVE SPIROMETER. PT HAS PRODUCTIVE COUGH. O2 SAT INC TO 90% WITH RESP THERAPY AT BEDSIDE AND PERSISTANT ENCOURAGEMENT. WILL OBTAIN ABG AND GIVE BREATHING TREATMENT ORDERED.
--- NOTE | 2016-11-13 14:30 | NUR ---
PT INCREASED TO 4LNC.
--- NOTE | 2016-11-13 14:33 | NUR ---
NOTIFIED ALINE HURT OF ABG RESULTS AND UPDATED THEM ON PT'S STATUS. CONTINUE FREQUENT INCENTIVE SPIROMETRY AND ENCOURAGE COUGH. O2 SAT 93%.
--- NOTE | 2016-11-13 19:00 | NUR ---
REPORT RECEIVED AND ASSESSMENT COMPLETED. SINCE PREVIOUS SHIFT AN AIR LEAK HAS DEVELOPED IN ANTERIOR CHEST TUBE. CLEVIPREX NOW AT 12 MG/HR. CRACKLES CAN BE HEARD WHEN ASSESSING LUNG SOUNDS. SEE FLOWSHEET FOR FULL DETAILS. VSS. WILL CONTINUE TO MONITOR
--- NOTE | 2016-11-13 21:00 | NUR ---
CLEVIPREX ADJUSTED. PT SHOWING MUCH MORE URINE OUTPUT THAN ON PREVIOUS SHIFT. REPOSITIONED FOR COMFORT AND INSTRUCTED TO TURN COUGH AND DEEP BREATHE ORDERED. WILL CONTINUE TO MONITOR PT FOR CHANGES THROUGHOUT SHIFT.
--- NOTE | 2016-11-13 23:02 | NUR ---
REASSESSMENT COMPLETED. SEE FLOWSHEET FOR FULL DETAILS. RT IN ROOM BREATHING TREATMENT BEING ADMINISTERED. VSS. NO OTHER CHANGES AT THIS TIME.
[2016-11-14] VITALS (63 sets, daily range): BP systolic 105–159; BP diastolic 48–74
--- NOTE | 2016-11-14 01:00 | NUR ---
FULL BEDBATH AND LINEN CHANGE PERFORMED. NO OTHER CHANGES IN STATUS AT THIS TIME. VSS. WILL CONTINUE TO MONITOR.
--- NOTE | 2016-11-14 03:00 | NUR ---
REASSESSMENT COMPLETED. SEE FLOWSHEET FOR FULL DETAILS. WILL CONTINUE TO MONITOR
--- NOTE | 2016-11-14 05:00 | NUR ---
PT REPOSITIONED FOR COMFORT. NO CHANGES IN STATUS AT THIS TIME VSS. WILL MONITOR
[2016-11-14 06:17] LABS: HEMATOCRIT 36.7 % (36.0-48.0); HEMOGLOBIN 12.2 g/dL (12-16); MCH 29.7 pg (26.0-34.0); MCHC 33.2 g/dL (31.0-37.0); MCV 89.3 fL (80.0-100.0); MEAN PLATELET VOLUME 10.8 fL (7.4-10.4); RBC 4.11 10x6/uL (4.00-5.40); RDW 14.3 % (11.5-14.5); WBC 11.5 10x3/uL (4.8-10.8)
[2016-11-14 06:30] LABS: ALBUMIN 2.9 g/dL (3.4-5.0); ALKALINE PHOSPHATASE 206 U/L (46-116); BILIRUBIN - TOTAL 0.49 mg/dL (0.2-1.3); CARBON DIOXIDE 27.7 mmol/L (21.0-32.0); CHLORIDE - SERUM 99 mmol/L (98-107); CREATININE - SERUM 0.6 mg/dL (0.6-1.3); PROTEIN - SERUM 6.3 g/dL (6.4-8.2); SODIUM 136 mmol/L (136-145); eGFR NON AFRICAN AMERICAN > 90 mL/min (90-120)
[2016-11-14 06:33] LABS: ALT (SGPT) 56 U/L (10-68); CALC OSMOLALITY 272 mosm/kg (275-300); GLUCOSE 132 mg/dL (74-106); POTASSIUM - SERUM 3.3 mmol/L (3.5-5.1); UREA NITROGEN 9 mg/dL (7-18)
--- NOTE | 2016-11-14 16:00 | NUR ---
LEFT LATERAL CHEST TUBE SITE DRESSING WITH SMALL AMOUNT OF BLOOD NOTED. DRESSING CHANGED. SITE W/NO S/S OF INFECTION NOTED. PT TOLERATED WELL.
--- NOTE | 2016-11-14 20:15 | NUR ---
RECEIVED CARE OF PT, ASSESSMENT PER FLOWSHEET. PT ALERT AND ORIENTED, ON 4L O2 VIA NC, BREATH SOUNDS DIMINISHED ON LT AND IN BASES, HR SR AT A RATE OF 64, EPIDURAL DRESSING SECURED WITH NO S/S OF LEAKAGE, PPP, RT RADIAL A-LINE FLUSHED AND ZEROED, CRITICORE HARRISON PATENT WITH CLEAR YELLOW URINE IN TUBING, ON AIR OVERLAY, SCD'S AND SO'S IN PLACE, POSITIONED FOR COMFORT, PULLING AROUND 750 ON IS CONSISTENTLY WITH 1000 X 2-ENCOURAGED TO COUGH AND DEEP BREATHE, PT VERBALIZED UNDERSTANDING BUT WILL CONT TO PUSH AND ENCOURAGE.
--- NOTE | 2016-11-14 20:29 | NUR ---
CLEVIPREX GTT INITIATED PER MD ORDER FOR INCREASED BP, WILL MONITOR.
--- NOTE | 2016-11-14 21:12 | NUR ---
NO VISITORS PRESENT AT THIS TIME, PT REPOSITIONED FOR COMFORT, DENIES ANY NEEDS, CONTINUING TO TITRATE CLEVIPREX PER MD ORDER.
--- NOTE | 2016-11-14 23:30 | NUR ---
REASSESSMENT PER FLOWSHEET, PT POSITIONED FOR COMFORT WITH MINIMAL ASSISTANCE, PULLING AROUND 750 ON IS, GOOD COUGH NOTED. CONT POC.
[2016-11-15] VITALS (59 sets, daily range): BP systolic 109–152; BP diastolic 51–72
--- NOTE | 2016-11-15 01:40 | NUR ---
PT POSITIONED FOR COMFORT WITH MINIMAL ASSIST, PULLING 750-1000 ON IS, GOOD COUGH NOTED, SPUTUM EXPECTORATED BUT NOT SEEN, WILL CONT TO ENCOURAGE.
--- NOTE | 2016-11-15 03:00 | NUR ---
REASSESSMENT PER FLOWSHEET, NO ACUTE CHANGES NOTED. PT PULLING 750-1000 ON IS WITH GOOD INSPIRATORY EFFORT, LT CT X 2 WITH NO AIR LEAK NOTED, DRESSING CDI, CONT TO ENCOURAGE COUGH AND DEEP BREATHE.
--- NOTE | 2016-11-15 04:20 | NUR ---
AM CXR COMPLETED, PT TOLERATED WELL, POSITIONED FOR COMFORT. CONT POC
--- NOTE | 2016-11-15 05:20 | NUR ---
COFFEE PROVIDED PER REQUEST, PT PULLING 750-1000 ON IS WITH GOOD EFFORT, WILL CONT TO ENCOURAGE, CONT TO MONITOR.
--- NOTE | 2016-11-15 05:50 | NUR ---
PT SITTING UP IN CHAIR WATCHING TV AND DOING IS, DENIES ANY NEEDS AT THIS TIME, CALL LIGHT IN REACH, CONT POC.
[2016-11-15 06:11] LABS: HEMATOCRIT 32.4 % (36.0-48.0); MCH 29.9 pg (26.0-34.0); MEAN PLATELET VOLUME 10.8 fL (7.4-10.4); RBC 3.68 10x6/uL (4.00-5.40); RDW 13.9 % (11.5-14.5); WBC 10.1 10x3/uL (4.8-10.8)
[2016-11-15 06:37] LABS: ALBUMIN 2.6 g/dL (3.4-5.0); ALKALINE PHOSPHATASE 165 U/L (46-116); BILIRUBIN - TOTAL 0.61 mg/dL (0.2-1.3); CALC OSMOLALITY 272 mosm/kg (275-300); CALCIUM 8.9 mg/dL (8.5-10.1); CARBON DIOXIDE 26.2 mmol/L (21.0-32.0); CHLORIDE - SERUM 98 mmol/L (98-107); CREATININE - SERUM 0.6 mg/dL (0.6-1.3); GLUCOSE 164 mg/dL (74-106); POTASSIUM - SERUM 3.4 mmol/L (3.5-5.1); PROTEIN - SERUM 6.4 g/dL (6.4-8.2); SODIUM 135 mmol/L (136-145); UREA NITROGEN 9 mg/dL (7-18); eGFR NON AFRICAN AMERICAN > 90 mL/min (90-120)
[2016-11-15 06:38] LABS: ALT (SGPT) 38 U/L (10-68)
--- NOTE | 2016-11-15 06:53 | NUR ---
Brad BANG SOLDERER FURNACE NOTIFIED REGARDING EPIDURAL NEEDING TO BE REFILLED.
--- NOTE | 2016-11-15 07:27 | NUR ---
DR KAMARA IN, EPIDURAL BAG CHANGED, UPDATE GIVEN.
--- NOTE | 2016-11-15 12:08 | OP ---
PATIENT NAME: ANETTE LEWIS MEDICAL RECORD: [id number] :[birth year] LOCATION:[facility] D.CV04 ADMISSION DATE:11/12/16 SURGEON: YIFAN VAZQUEZ MD DATE OF OPERATION: 11/12/2016 SURGEON: iYfan Vazquez MD. ANESTHESIA: General endotracheal, Frank Steele MD. OPERATION PERFORMED: Left thoracotomy and resection of left superior mediastinal tumor. 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 INDICATION FOR OPERATION: Solitary pulmonary nodule left upper lobe, enlarged over the past 3 years. FINDINGS AT OPERATION: A tumor in the left upper hemithorax, attached by a small pedicle to the lung. There were dense adhesions throughout the left hemithorax secondary to previous surgery and pleural effusions. ESTIMATED BLOOD LOSS: Less than 150 mL. Frozen section demonstrates a benign tumor, probably hamartoma. DESCRIPTION OF PROCEDURE: After informed consent, adequate preoperative medication evaluation, the patient was brought to the operating room, placed on the table in the supine position. After induction of general endotracheal anesthesia and application of appropriate monitoring devices, the flexible fiberoptic bronchoscopy and placement of a double lumen tube, the patient turned in a right lateral decubitus position, left chest prepped and draped in sterile field utilizing Betadine scrub, alcohol and Betadine solution. A Betadine-impregnated drape was also used. A small posterolateral thoracotomy incision was made and dissection carried down the fascia. Hemostasis maintained with electrocautery. The serratus was spared, the fourth interspace was opened. There were dense adhesions from the upper and lower lobes to the chest wall. Utilizing a Kitner dissector, sharp and blunt dissection as well as electrocautery, the lung was dissected free of the left hemithorax. The lower lobe was mobilized as was the fissure and left upper lobe. The tumor was attached to the left internal thoracic artery that extended from the left subclavian to the left anterior descending. This was carefully dissected off the pedicle of the internal mammary artery and the tumor was almost free from the left upper lobe. Utilizing an Endo-MONICA stapler, the left upper lobe apex was resected with the tumor. The tumor was sent to pathology, felt to be a benign hamartoma, which confirmed the clinical appearance. The left upper lobe was then examined for air leaks. They were sutured with 6-0 Prolene suture. Chest was irrigated with copious amounts of antibiotic solution and normal saline. There was no active bleeding. A #28 chest tube was placed anteriorly, superiorly, posteriorly and inferiorly. The chest was again irrigated. Instrument count and sponge count were correct times 2. Chest was closed in OPERATIVE REPORT [id number] ANETTE LEWIS layers utilizing #2 Vicryl pericostal sutures, 0 Vicryl on the muscular tear, 2-0 Vicryl on the subcutaneous tissue and skin approximated with 3-0 subcuticular Monocryl. Sterile dressings were applied. The patient tolerated the procedure well. Sterile dressings were applied. The patient turned in a supine position, underwent flexible fiberoptic bronchoscopy demonstrated no endobronchial lesions or hemorrhage. The patient was then aroused and extubated and transferred to the cardiovascular ICU in stable condition. TRANSINT:[id number] Voice Confirmation ID: [id number] DOCUMENT ID: [id number] YIFAN VAZQUEZ MD at 1208 CC: [id number] DICTATION DATE: 11/12/16 1135 INDUSTRIAL ROBOTICS MECHANIC: 11/12/162033 ADM IN [place] [id number] [place] [address]
--- NOTE | 2016-11-15 19:40 | NUR ---
RESUMED CARE OF PT, ASSSESSMENT PER FLOWSHEET. PT ALERT BUT DISORIENTED TO SITUATION-EASILY REORIENTED AND ANSWERS APPROPRIATELY. REPOSITIONED FOR COMFORT, EPIDURAL SECURED AND DRESSING CDI, CT X 2 TO 20 OF SXN, NO AIR LEAK NOTED, CRITICORE PATENT AND DRAINING YELLOW URINE. PULLING 750 CONSISTENTLY, 1000 X 2. CONT TO ENCOURAGE.
--- NOTE | 2016-11-15 21:05 | NUR ---
NO VISITORS PRESENT AT THIS TIME, PT POSITIONED FOR COMFORT, ICE WATER PROVIDED PER REQUEST. VSS
--- NOTE | 2016-11-15 23:15 | NUR ---
REASSESSMENT PER FLOWSHEET, NO ACUTE CHANGES NOTED. PT POSITIONED FOR COMFORT, VSS.
[2016-11-16] VITALS (24 sets, daily range): BP systolic 110–163; BP diastolic 47–80
--- NOTE | 2016-11-16 01:05 | NUR ---
PT REPOSITIONED FOR COMFORT, PULLING AROUND 750 CONSISTENTLY ON IS, NON-PRODUCTIVE COUGH NOTED, VSS.
--- NOTE | 2016-11-16 03:50 | NUR ---
PT RESTING IN BED WITH EYES CLOSED, EPIDURAL GARBAGE PICK UP WORKER AND CALL LIGHT IN REACH, VSS, CONT POC.
--- NOTE | 2016-11-16 05:45 | NUR ---
COMPLETE LINEN CHANGE DONE, PT POSITIONED WITH PILLOWS FOR COMFORT, EPIDURAL BAND TEACHER AND CALL LIGHT IN REACH, DENIES ANY OTHER NEEDS AT THIS TIME.
[2016-11-16 06:24] LABS: HEMATOCRIT 30.8 % (36.0-48.0); HEMOGLOBIN 10.3 g/dL (12-16); MCH 29.7 pg (26.0-34.0); MCHC 33.4 g/dL (31.0-37.0); MCV 88.8 fL (80.0-100.0); MEAN PLATELET VOLUME 10.5 fL (7.4-10.4); RBC 3.47 10x6/uL (4.00-5.40); RDW 13.8 % (11.5-14.5); WBC 9.2 10x3/uL (4.8-10.8)
[2016-11-16 06:49] LABS: ALBUMIN 2.5 g/dL (3.4-5.0); ALKALINE PHOSPHATASE 144 U/L (46-116); ALT (SGPT) 33 U/L (10-68); BILIRUBIN - TOTAL 0.85 mg/dL (0.2-1.3); CALC OSMOLALITY 274 mosm/kg (275-300); CALCIUM 9.2 mg/dL (8.5-10.1); CARBON DIOXIDE 28.9 mmol/L (21.0-32.0); CHLORIDE - SERUM 100 mmol/L (98-107); CREATININE - SERUM 0.6 mg/dL (0.6-1.3); GLUCOSE 139 mg/dL (74-106); PROTEIN - SERUM 6.3 g/dL (6.4-8.2); SODIUM 138 mmol/L (136-145); UREA NITROGEN 5 mg/dL (7-18); eGFR NON AFRICAN AMERICAN > 90 mL/min (90-120)
--- NOTE | 2016-11-16 17:02 | NUR ---
0715-RECIEVD AWAKE AND ALERT-VERBALLY APPROPRIATE-L LATERAL CHEST TUBES X2-20CM SUCTION-NO AIR LEAK NOTED-DRG DRY -O2 AT 4L SEWER INSPECTOR INCENTIVE SPIROMETRY DONE BY PT- 929-NOTED PT CALLING OUT THAT PEOPLE IN HER RM IN CORNER-NOTED O2 OFF WITH SAT OF 78%-TURNED LIGHT ON FOR PT AND REPLACED O2-PT ABLE TO STATE-HALLUCNATION
--- NOTE | 2016-11-16 17:10 | NUR ---
1130-CALLING OUT-STATING WE HAVE HER GRANDCHILDREN LOCKED UP--NOTED O2 OFF AND [id number] O2-ATTEMPTED TO ORIENT TO SURRUNDINGS-DENIES PAIN AT THIS TIME- 1145-SAT 99-APPEARS CALMER-CONTINUES TO VOICE CONCERN ABOUT GRAND CHILDREN-ABLE TO STATE SITUATION 1250-DR WELSH AT BEDSIDE-POSITIONED PT ON R SIDE WITH HOB FLAT FOR REMOVAL OF CHEST TUBES-NOTED EPIDURAL OUT-LINENS WET -DENIES PAIN-EPIDURAL CATH INTACT-TAPE SECURING TO SHOULDER AND BACK INTACT-VERSED 2MG IVP GIVEN PER DR WELSH FOR PREMED-CHEST TUBES REMOVED BY DR WELSH PER PROTOCOL 1300-DR KAMARA INFORMED OF EPIDURAL OUT- 1430-ASSISTED PT TO CHAIR WITH PHYSICAL THERAPY-MORPHINE CERTIFIED ALCOHOL DRUG COUNSELOR SET UP WITH INSTRUCTION GIVEN TO PT AND REPEAT BY PT DONE 1500-SON AT BEDSIDE WITH PT -PT APPEARS LUCID 1530-RETURNED TO BED WITH ASSIST OF 2 NURSES-REVIEWED USE OF CERTIFIED ALCOHOL DRUG COUNSELOR MORPHINE WITH PT 1630-PT AWAKE AND ALERT-KBRN
--- NOTE | 2016-11-16 19:15 | NUR ---
REPORT RECVD. CARE ASSUMED. INITIAL ASSMNT COMPLETED. SEE FLOWSHEET FOR ALL FINDINGS. AWAKE AND AOX4. ANXIOUS AND PARANOID. ATTENDING TO VISUAL HALLUCINATIONS AT TIMES. RESP EVEN AND UNLABORED., SHALLOW. CTA. DIM IN BASES. SPO2 95% ON O2 AT 2 LPM NC. LEFT CHEST DRESSINGS CDI. SR ON THE MONITOR. PULSES PALP. SYS B/P WITHIN PARAMETERS. NTF PATCH IN USE. ABD SOFT, BSA X4. PASSING FLATUS. F/C PATENT WITH CARLENE UOP TO CRITICORE. FARM IMPLEMENT MECHANIC MORPHINE PROVIDING PAIN CONTROL. HOB UP. C/L AND FARM IMPLEMENT MECHANIC IN REACH. CONT CURRENT POC.
--- NOTE | 2016-11-16 21:00 | NUR ---
NO VISITORS. HS MEDS GIVEN. ATTENDING TO HALLUCINATIONS. VSS. SPO2 95% ON O2 AT 2LPM NC. COUGH/DB AND INCENTIVE ENCOURAGED. REPOSITIONED SELF IN BED. HOB UP. C/L AND ELECTROLYSIST IN REACH. CONT POC.
--- NOTE | 2016-11-16 23:15 | NUR ---
REASSESSMENT COMPLETED. SEE FLOWSHEET FOR ALL FINDINGS. AWAKE AND AOX4. ANXIOUS AND PARANOID. ATTENDING TO VISUAL HALLUCINATIONS AT TIMES. RESP EVEN AND UNLABORED., SHALLOW. CTA. DIM IN BAS SPO2 95% ON O2 AT 2 LPM NC. LEFT CHEST DRESSINGS CDI. SR ON THE MONITOR. PULSES PALP. SYS B/P WITHIN PARAMETERS. NTG PATCH IN USE. ABD SOFT, BSA X4. PASSING FLATUS. F/C REMOVED PER ORDERS. NO URGE TO VOID AT THIS TIME. BLADDER NON PALP. WORK ORDER DETAILER MORPHINE PROVIDING PAIN CONTROL. HOB UP. C/L AND WORK ORDER DETAILER IN REACH. CONT CURRENT POC.
[2016-11-17] VITALS (24 sets, daily range): BP systolic 117–164; BP diastolic 61–85
--- NOTE | 2016-11-17 01:15 | NUR ---
RESPONDING TO BED ALARM, PT IS OOB STANDING AT BEDSIDE. ASSISTED WITH SPONGE BATH. LINENS CHANGED. MINIMAL ASSIST BACK INTO BED. ENCOURAGED TO REST. FALL PRECAUTIONS. BED ALARM ON. REORIENTED TO CALL LIGHT AND WAIT FOR ASSIST. REPORTS GETING UP TO "CHECK ON EVERYONE BECAUSE ITS STORMING AND THE WINDOW IS BROKEN OUT." CONT TO MONITOR CLOSELY.
--- NOTE | 2016-11-17 03:15 | NUR ---
REASSESSMENT COMPLETED. SEE FLOWSHEET FOR ALL FINDINGS. AWAKE AND AOX4. ANXIOUS AND PARANOID. ATTENDING TO VISUAL HALLUCINATIONS AT TIMES. RESP EVEN AND UNLABORED., SHALLOW. CTA. DIM IN BAS SPO2 95% ON O2 AT 2 LPM NC. LEFT CHEST DRESSINGS CDI. SR ON THE MONITOR. PULSES PALP. SYS B/P WITHIN PARAMETERS. NTG PATCH IN USE. ABD SOFT, BSA X4. PASSING FLATUS. UP TO BR TO VOID NODIFF. BLADDER NON PALP. BED ALARM ON FOR SAFETY. PREANALYTICS TEAM LEAD MORPHINE PROVIDING PAIN CONTROL. HOB UP. C/L AND PREANALYTICS TEAM LEAD IN REACH. CONT CURRENT POC.
--- NOTE | 2016-11-17 05:00 | NUR ---
UP IN CHAIR AT BEDSIDE AFTER CHEST XRAY. MINIMAL ASSIST TO BR TO VOID CARLENE UOP. VSS. SOFTWARE TECHNICIAN AND C/L PLACED IN REACH. CONT CURRENT POC.
[2016-11-17 06:09] LABS: HEMATOCRIT 30.4 % (36.0-48.0); HEMOGLOBIN 10.1 g/dL (12-16); MCH 29.6 pg (26.0-34.0); MCHC 33.2 g/dL (31.0-37.0); MCV 89.1 fL (80.0-100.0); MEAN PLATELET VOLUME 10.1 fL (7.4-10.4); RBC 3.41 10x6/uL (4.00-5.40); RDW 13.8 % (11.5-14.5); WBC 8.9 10x3/uL (4.8-10.8)
[2016-11-17 06:36] LABS: ALBUMIN 2.5 g/dL (3.4-5.0); ALKALINE PHOSPHATASE 133 U/L (46-116); ALT (SGPT) 30 U/L (10-68); CALC OSMOLALITY 270 mosm/kg (275-300); CALCIUM 9.4 mg/dL (8.5-10.1); CARBON DIOXIDE 27.9 mmol/L (21.0-32.0); CHLORIDE - SERUM 99 mmol/L (98-107); CREATININE - SERUM 0.7 mg/dL (0.6-1.3); GLUCOSE 153 mg/dL (74-106); POTASSIUM - SERUM 3.1 mmol/L (3.5-5.1); PROTEIN - SERUM 6.3 g/dL (6.4-8.2); SODIUM 135 mmol/L (136-145); UREA NITROGEN 6 mg/dL (7-18); eGFR NON AFRICAN AMERICAN > 90 mL/min (90-120)
--- NOTE | 2016-11-17 07:15 | NUR ---
REPORT RECIEVED FROM SENIOR LEAD SOFTWARE ENGINEER NURSE. PT RESTING IN RECLINER QUIETLY. NO S/SX OF ACUTE DISTRESS NOTED. UPON ASSESSMENT PT CONFUSED TO TIME AND PLACE. REORIENTATION PROVIDED. LEFT CHEST AND LATERAL CHEST DRESSING C/D/I. SR ON CM. RESP EVEN AND UNLABORED ON 2LNC. MORPHINE CLASSIFIER OPERATOR IN HAND. STATES HER PAIN IS WELL CONTROLLED WITH CLASSIFIER OPERATOR. CALL LIGHT IN REACH. BED IN LOW POSITION. REFER TO FLOWSHEET FOR FULL ASSESSMENT. WILL CONT TO ASSESS FOR CHANGES THROUGHOUT SHIFT.
--- NOTE | 2016-11-17 09:00 | NUR ---
NO VISITORS AT THIS TIME. MORNING MEDICATIONS ADMINISTERED WITH NO ISSUE. DENIES NEEDS AT THIS TIME. WILL CONT TO ASSESS FOR CHANGES. CALL LIGHT IN REACH.
--- NOTE | 2016-11-17 09:26 | NUR ---
11/17/2016 9:25 DCP: Discharge Planning Patient Name: ANETTE LEWIS Encounter No: [id number] : 1955 Primary Insurance: MEDICAID [facility] [place] Date: 11-18-2016 Planned Disposition: Home DCP follow-up note: Patient and family in agreement with discharge plan. No changes to plan. Case management will follow and assist as needed. Fernanda Lynn
--- NOTE | 2016-11-17 10:00 | NUR ---
IS USED. PULLING 0717-9614. PRODUCTIVE COUGH. JACOB/YELLOW SPUTUM NOTED.
--- NOTE | 2016-11-17 10:26 | NUR ---
Nutrition follow-up: Diet to advance to regular as tolerated PO intake has been poor Labs reviewed +BM Wt: 116# RDN following.
--- NOTE | 2016-11-17 11:30 | NUR ---
76 FT WALKED WITH PT. MIN ASSIST REQUIERED. USED IV POLE TO AID WITH BALANCE.
--- NOTE | 2016-11-17 12:00 | NUR ---
DAUGHTER AT BEDSIDE. UPDATE PROVIDED.
--- NOTE | 2016-11-17 14:28 | NUR ---
PT VERY CONFUSED WANTING TO TALK TO DAUGHTER. STATES THAT SHE IS CONCERNED TO WHY HER HAS NOT BEEN BY TO SEE HER ALONG WITH HER DAUGHTER. DAUGHTER WAS JUST IN FOR THE LAST VISIT AT 1200. DAUGHTER CALLED SO PT COULD SPEAK TO HER. REORIENTATION PROVIDED.
--- NOTE | 2016-11-17 14:30 | NUR ---
168 FT WALKED WITH PT. TOLERATED WELL.
--- NOTE | 2016-11-17 18:08 | NUR ---
FAMILY AT BEDSIDE. MATTHIAS
--- NOTE | 2016-11-17 19:00 | NUR ---
Assessment complete. See flowsheet. Pt awake upon entrance into room with VSS. HOB @ 40 degrees with pt watching television. Pt alert, oriented x4 and following all commands and conversation at this time. pupils size 4 bilaterally ERRLA. pt moving all extremities with 3/5 strength and no edema noted. Pt receiving O2 @ 2L NC with respirations even and unlabored. Lung sounds clear to all muniz with diminished lower lobes. Pt cough strong with rattle noted and no sputum produced at this time. IS encouraged and performed with 1500ml consistently reached. HR SR with S1S2 auscultated. All peripheral pulses +2 with capillary refill <3 seconds. Left DLSC CVL site CDI no s/s infection with plasmalyte infusing @ 30cc/hr with Morphine RICE DRYER MECHANIC setup 1mg Q10min with a 24mg 4hr lockout. Pain denied at this time. left flank previous chest tube sites and incision site CDI with dressing CDI; secure. Abdomen soft, non-tender, and non-distended with BS present to all quadrants. Nausea denied. Pt self-positioning for comfort in bed. Air overlay mattess noted. SO hoses and SCDs secure. Temp 98.5F orally. Pt provided with black coffee per request. Further needs denied. RICE DRYER MECHANIC button, call light, and bedside table remain within reach. CPOC.
--- NOTE | 2016-11-17 21:00 | NUR ---
Pt PM medications administered. See MAR. Pt helped up to bathroom for void and ambulates with minimal assistance. Afterwards pt back to bed and helped to position for comfort with arms and heels bridged. VSS. Call light, bedside table and CHILD AND FAMILY THERAPIST button placed within pt reach. CPOC.
--- NOTE | 2016-11-17 23:00 | NUR ---
Reassessment complete. See flowsheet. Pt incontinent of void. Bed bath with gown and linen changes completed. Pt disoriented to time and situation briefly but reorients during bath. O2 @ 2L NC. Lung sounds present fine crackles with auscultation and coughing produces thick, ospina sputum. HR SR with S1S2 auscultated. All peripheral pulses remain +2 with capillary refill <3 seconds. CVL site CDI with NO IVF changes to note. Incision site dressings remain CDI; unchanged. Abdomen soft with BS present to all quadrants. SO hoses and SCDs remain secure. Arms and heels rebridged. NO other changes to note. Call light, bedside table and DIRECTOR CHANNEL button remain within pt reach. Pain denied at this time. CPOC.
[2016-11-18] VITALS (22 sets, daily range): BP systolic 124–152; BP diastolic 49–76
--- NOTE | 2016-11-18 00:40 | NUR ---
Pt up to bathroom to void and back to bed with minimal assistance with self-positioning for comfort. Crackers provided per request.
--- NOTE | 2016-11-18 01:00 | NUR ---
Pt awake with VSS. NO s/s pain or distress.
--- NOTE | 2016-11-18 03:00 | NUR ---
Reassessment complete. See flowsheet. Pt resting and awakens disoriented to place, time and situation but reorients with conversation. Pt continues to receive O2 @ 2L NC. Lung sounds present fine crackles to all muniz with auscultation and coughing produces thick, ospina sputum. HR remains SR with S1S2 auscultated. All peripheral pulses remain +2 with capillary refill <3 seconds. CVL site CDI with NO IVF changes to note. Incision site dressings remain CDI; unchanged. Abdomen soft with BS present to all quadrants. SO hoses and SCDs remain secure. NO other changes to note. Arms/heels remain bridged. Call light, bedside table and GUITAR MAKER button remain within pt reach. Pain denied at this time. CPOC.
--- NOTE | 2016-11-18 04:25 | NUR ---
Pt OOB for AM PA/LAT and ambulates to chair with minimal assistance on telemetry.
--- NOTE | 2016-11-18 04:38 | NUR ---
Pt back to bed and helped to position for comfort. VSS. Call light, bedside table and PLATE STACKER HAND button placed within pt reach. Arms and heels bridged.
--- NOTE | 2016-11-18 05:00 | NUR ---
Pt resting with VSS. No s/s pain or distress. Call light, bedside table and SPECIALIZED DEVELOPER button remain within pt reach. CPOC.
[2016-11-18 06:43] LABS: ALBUMIN 2.4 g/dL (3.4-5.0); ALKALINE PHOSPHATASE 111 U/L (46-116); ALT (SGPT) 26 U/L (10-68); BILIRUBIN - TOTAL 0.48 mg/dL (0.2-1.3); CALC OSMOLALITY 280 mosm/kg (275-300); CARBON DIOXIDE 30.8 mmol/L (21.0-32.0); CHLORIDE - SERUM 101 mmol/L (98-107); CREATININE - SERUM 0.8 mg/dL (0.6-1.3); GLUCOSE 124 mg/dL (74-106); MAGNESIUM - SERUM 1.7 mg/dL (1.8-2.4); PHOSPHOROUS 4.1 mg/dL (2.5-4.9); POTASSIUM - SERUM 3.2 mmol/L (3.5-5.1); PROTEIN - SERUM 5.9 g/dL (6.4-8.2); SODIUM 141 mmol/L (136-145); eGFR NON AFRICAN AMERICAN 78 mL/min (90-120)
[2016-11-18 07:00] LABS: UREA NITROGEN 10 mg/dL (7-18)
--- NOTE | 2016-11-18 07:00 | NUR ---
PT REPORT REC'D, PT CARE ASSUMED. PT AAOX4 SITTING UP IN BED, VSS, 2LNC NO C/O PAIN, PAIN CONTROLLED BY CLAIMS EXAMINER PUMP. LEFT SUBCLAVIAN CVL WITH FLUIDS INFUSING, SEE FLOW SHEET, DRESSING CDI. LEFT LATERAL CHEST INCISION, DRESSING CDI, LEFT CHEST OLD CT SITE, DRESSING CDI, LEFT CHEST BRUISES NOTED. PT UP TO BATHROOM NEEDED. SCD'S SO'S, AIROVERLAY MATTRESS. SHIFT ASSESSMENT COMPLETED, SEE FLOW SHEET. ROOM FREE OF CLUTTER, CALL LIGHT IN REACH, BED ALARM ACTIVE, WILL CONTINUE TO MONITOR PT.
[2016-11-18 07:21] LABS: HEMATOCRIT 27.8 % (36.0-48.0); HEMOGLOBIN 9.2 g/dL (12-16); MCH 29.6 pg (26.0-34.0); MCHC 33.1 g/dL (31.0-37.0); MCV 89.4 fL (80.0-100.0); RBC 3.11 10x6/uL (4.00-5.40)
[2016-11-18 07:24] LABS: WBC 6.5 10x3/uL (4.8-10.8)
--- NOTE | 2016-11-18 07:54 | NUR ---
DR. WELSH AT THE BEDSIDE, [facility], WILL CONTINUE TO MONITOR PT.
--- NOTE | 2016-11-18 09:40 | NUR ---
TRANSFERRED PT FROM BED TO CHAIR, PT TOLERATED WELL. WILL CONTINUE TO MONITOR PT.
--- NOTE | 2016-11-18 11:00 | NUR ---
PT SITTING UP IN CHAIR, NO C/O PAIN, VSS, DOING FLUTTER VALVE. REASSESSMENT COMPLETED, SEE FLOW SHEET. ROOM FREE OF CLUTTER, CALL LIGHT IN REACH, WILL CONTINUE TO MONITOR PT.
--- NOTE | 2016-11-18 12:27 | NUR ---
PT FAMILY AT THE BEDSIDE, ALL QUESTIONS ANSWERED, VSS, WILL CONTINUE TO MONITOR PT.
--- NOTE | 2016-11-18 15:00 | NUR ---
PT SITTING UP IN CHAIR, NO C/O PAIN, VSS. REASSESSMENT COMPLETED, SEE FLOW SHEET. ROOM FREE OF CLUTTER, CALL LIGHT IN REACH, WILL CONTINUE TO MONITOR PT.
--- NOTE | 2016-11-18 15:20 | NUR ---
PT FAMILY AT THE BEDSIDE, ALL QUESTIONS ANSWERED, VSS, WILL CONTINUE TO MONITOR PT.
--- NOTE | 2016-11-18 19:00 | NUR ---
Assessment complete. See flowsheet. Pt awake upon entrance into room and oriented to person, place, time and situation but lethargic. Pt following conversation. Speech soft and clear. Pupils size 4 bilaterally ERRLA. Pt moving all extremities with 3/5 strength. No edema noted. Pt receiving O2 @ 2L NC. Respirations shallow/unlabored. Lung sounds currently clear to RUL RML with diminished DONNA RLL LLL. Pt encouraged to deep breathe and cough with no sputum produced. IS encoraged and performed with 1200-1500ml consistently reached. HR SR with occasional PVCs noted. S1S2 auscultated. All peripheral pulses +2 with capillary refill <3 seconds. Left DLSC CVL site CDI/saline locked with no s/s infection. Abdomen soft and flat with BS present to all quadrants. Nausea denied. SCDs and SO hoses secure. Pt pulled up in bed and helped to position to left side. HOB @ 30 degrees with arms and heels bridged. SCDs connected to compression device. Pt c/o pain to incisional site. Dressings to left lateral chest CDI; no s/s infection and no drainage noted from sites. Will provide prescribed pain medication. See MAR. Pt provided with fresh ice water and decaf coffee per request. Call light and bedside table placed within pt reach. CPOC.
--- NOTE | 2016-11-18 21:00 | NUR ---
PM medications administered. Fresh clear soda provided per pt request. VSS. Pt denies further needs at this time. See MAR.
--- NOTE | 2016-11-18 21:59 | NUR ---
FiO2 decreased to 1L NC
--- NOTE | 2016-11-18 22:23 | NUR ---
O2 weaned to room air. SPO2 96% currently. CPOC.
--- NOTE | 2016-11-18 22:40 | NUR ---
Pt helped OOB for void to bathroom. Partial linen changes completed. Pt back to bed and self-positioning for comfort. VSS. Call light and bedside table within reach. CPOC.
--- NOTE | 2016-11-18 23:00 | NUR ---
Reassessment complete. See flowsheet. Pt resting and awakens to verbal stimulation. Pt disoriented to time and situation but reorients during conversation. O2 remains room air. Lung sounds clear RUL RML with diminished DONNA LLL RLL. SPO2 93%. HR SR with S1S2 auscultated. All peripheral pulses remain +2 with capillary refill <3 seconds. CVL site remains CDI with doxycycline infusing over 2hrs. BS+. No other changes to note. Pt self-positioning for comfort. Call light and bedside table remain within reach. pain denied. CPOC.
[2016-11-19] VITALS (12 sets, daily range): BP systolic 112–151; BP diastolic 51–70
--- NOTE | 2016-11-19 01:00 | NUR ---
Pt resting quietly with VSS. NO s/s pain or distress and allowed to continue resting undisturbed. Call light and bedside table remain within pt reach. CPOC.
--- NOTE | 2016-11-19 01:51 | NUR ---
Pt incontinent of urine in bed. Bed bath with gown and linen changes completed. Fresh soda provided per request. Pt helped to bathroom for void and small stool. Back to bed. VSS. Call light and bedside table within reach. CPOC.
--- NOTE | 2016-11-19 03:00 | NUR ---
Reassessment complete. See flowsheet. Pt resting and awakens to verbal stimulation with no neuro deficits to note at this time and following conversation. O2 remains room air. Lung sounds clear RUL RML with diminished DONNA, LLL, RLL. Spo2 94%. HR SR with S1S2 auscultated. All peripheral pulses remain +2 with capillary refill <3 seconds. CVL site remains CDI with piperacillin infusing over 30 min. BS remain +. No other changes to note. Pt self-positioning for comfort. Call light and bedside table remain within reach. Pain denied. CPOC.
--- NOTE | 2016-11-19 04:30 | NUR ---
Pt to radiology and back for AM PA/LAT and tolerated well ambulating with no assistance. Pt back to room and self-positioned for comfort in bed. Warm blanket provided per pt request.
--- NOTE | 2016-11-19 05:00 | NUR ---
Pt resting with VSS and allowed to continue undisturbed. Call light and bedside table remain within reach.
[2016-11-19 05:56] LABS: MCH 30.1 pg (26.0-34.0); MCHC 33.3 g/dL (31.0-37.0); MCV 90.3 fL (80.0-100.0); MEAN PLATELET VOLUME 9.6 fL (7.4-10.4); RBC 2.99 10x6/uL (4.00-5.40); RDW 14.3 % (11.5-14.5); WBC 6.6 10x3/uL (4.8-10.8)
[2016-11-19 06:23] LABS: ALBUMIN 2.4 g/dL (3.4-5.0); ALKALINE PHOSPHATASE 102 U/L (46-116); ALT (SGPT) 24 U/L (10-68); CALC OSMOLALITY 278 mosm/kg (275-300); CHLORIDE - SERUM 103 mmol/L (98-107); CREATININE - SERUM 0.8 mg/dL (0.6-1.3); GLUCOSE 132 mg/dL (74-106); POTASSIUM - SERUM 3.5 mmol/L (3.5-5.1); PROTEIN - SERUM 5.8 g/dL (6.4-8.2); SODIUM 140 mmol/L (136-145); UREA NITROGEN 8 mg/dL (7-18); eGFR NON AFRICAN AMERICAN 78 mL/min (90-120)
--- NOTE | 2016-11-19 07:00 | NUR ---
PT REPORT REC'D, PT CARE ASSUMED. PT AAOX4 SITTING UP IN BED. NO C/O PAIN, VSS, ROOM AIR. LEFT SUBCLAVIAN CVL S/L'ED, DRESSING CDI. LEFT LATERAL CHEST INCISION, DRESSING CDI, LEFT CHEST PREVIOUS CT SITE, DRESSING CDI, BRUISES NOTED TO LEFT CHEST. UP TO BATHROOM NEEDED. SHIFT ASSESSMENT COMPLETED, SEE FLOW SHEET. ROOM FREE OF CLUTTER, CALL LIGHT IN REACH, BED ALARM ACTIVE WILL CONTINUE TO MONITOR PT.
--- NOTE | 2016-11-19 07:15 | NUR ---
ASSISTED PT TO AMBULATE FROM BED TO BATHROOM, PT VOIDED, SMALL, SOFT, FORMED BOWEL MOVEMENT. PT AMBULATED TO CHAIR, TOLERATED WELL, VSS, WILL CONTINUE TO MONITOR PT.
--- NOTE | 2016-11-19 07:45 | NUR ---
DR. WELSH AT THE BEDSIDE, PT SITTING UP IN CHAIR EATING BREAKFAST, NO C/O PAIN, VSS, WILL CONTINUE TO MONITOR PT.
--- NOTE | 2016-11-19 08:55 | NUR ---
CHANGED CVL DRESSING PER HOSPITAL PROTOCOL, PT TOLERATED WELL, VSS, WILL CONTINUE TO MONITOR PT.
--- NOTE | 2016-11-19 09:09 | NUR ---
PHYSICAL THERAPY IN WITH PT, PT AMBULATED APPROX 150FT. PT TOLERATED WELL, VSS, WILL CONTINUE TO MONITOR PT.
--- NOTE | 2016-11-19 09:38 | NUR ---
PT SITTING UP IN CHAIR, RATING PAIN "1/10", VSS, WILL CONTINUE TO MONITOR PT.
--- NOTE | 2016-11-19 10:25 | NUR ---
11/19/2016 10:22 DCP: Discharge Planning POC discussed with Dr. Vazquez's nurse, Callie. Patient would benefit from home health services for both nursing & physical therapy. Discussed with patient - she is agreeable. Provided patient with a list of local agencies. LEOBARDO signed for [facility]. Referral faxed. Anticipate DC this afternoon vs tomorrow. CM will follow.
[2016-11-19] MEDS ORDERED: ULTRAM50 MG PO (10:51)
--- NOTE | 2016-11-19 11:00 | NUR ---
PT SITTING UP IN CHAIR, NO C/O PAIN, VSS, REASSESSMENT COMPLETED, SEE FLOW SHEET. ROOM FREE OF CLUTTER, CALL LIGHT IN REACH, WILL CONTINUE TO MONITOR PT.
--- NOTE | 2016-11-19 12:05 | NUR ---
PT FAMILY AT THE BEDSIDE, ALL QUESTIONS ANSWERED, VSS, WILL CONTINUE TO MONITOR PT.
--- NOTE | 2016-11-19 12:06 | NUR ---
Nutrition follow-up: Diet: Regular as tolerated PO intake ~70% average of last 6 meals Labs reviewed +BM PO intake is improving. RDN following.
--- NOTE | 2016-11-19 14:00 | NUR ---
DISCHARGE PAPERWORK GIVEN, SIGNED, PT VERBALIZED PLANS FOR DISCHARGE. WILL CONTINUE TO MONITOR PT.
--- NOTE | 2016-11-19 14:30 | NUR ---
WHEELED PT OUT TO DAUGHTER'S VEHICLE, DISCHARGE PAPERWORK IN HAND.
--- NOTE | 2016-11-19 14:47 | NUR ---
CALLED [facility], SPOKE WITH ERICA JOHNSTON, "OUR INTAKE NURSE STEPPED OUT, I WILL SEE IF SHE HAS A CONSULT, AND WILL HAVE HER CALL YOU GUYS BACK IF SHE NEEDS TO."
== END 2016-11-19 14:30 | disposition home health service (06) | DRG 826 ==
LOC: D.SDCHOLD 05:00 → D.CVICU 05:00 → D.SDCHOLD 07:30 → D.CVICU 10:54
PROVIDERS: ADMIT Internal Medicine Cardiovascular Disease
PROC: 0BBG0ZZ Excision of Left Upper Lung Lobe, Open Approach (ICD-10-PCS; principal; 2016-11-12 07:30)
DX: Q85.9 Phakomatosis, unspecified (principal); J15.6 Pneumonia due to other Gram-negative bacteria; G93.41 Metabolic encephalopathy; J44.1 Chronic obstructive pulmonary disease with (acute) exacerbation; F17.203 Nicotine dependence unspecified, with withdrawal; J90 Pleural effusion, not elsewhere classified; K22.70 Barrett's esophagus without dysplasia; E03.9 Hypothyroidism, unspecified; R59.1 Generalized enlarged lymph nodes; I10 Essential (primary) hypertension; Z95.1 Presence of aortocoronary bypass graft; Z85.72 Personal history of non-Hodgkin lymphomas; F17.200 Nicotine dependence, unspecified, uncomplicated; M85.80 Other specified disorders of bone density and structure, unspecified site; D64.9 Anemia, unspecified; I25.10 Atherosclerotic heart disease of native coronary artery without angina pectoris

== ENCOUNTER → 2016-12-04 09:41 | Outpatient (CLI) | payer MEDICAID ==
[2016-11-13 07:31] VITALS: BMI 18.8
[~2016-12-04 09:41] MED LIST changes: +ULTRAM50 MG PO
== END | disposition home or self-care (01) ==
LOC: D.RAD 08:30
DX: Z90.2 Acquired absence of lung [part of] (principal)

== ENCOUNTER → 2017-01-15 13:03 | Outpatient (CLI) | payer MEDICAID ==
[2016-11-13 07:31] VITALS: BMI 18.8
== END | disposition home or self-care (01) ==
LOC: D.LAB 13:00
DX: R91.8 Other nonspecific abnormal finding of lung field (principal)

== ENCOUNTER 2018-03-15 08:46 | Outpatient (CLI) | payer MEDICAID ==
[~2018-03-15] VITALS: Ht 167.6 cm; Wt 49.5 kg
[2018-03-15 11:17] VITALS: BP 135/61; Ht 167.6 cm; Wt 49.5 kg
== END 2018-03-15 14:00 | disposition home or self-care (01) ==
LOC: D.OPS 08:46
DX: D64.9 Anemia, unspecified (principal); Z01.812 Encounter for preprocedural laboratory examination

== ENCOUNTER 2018-05-11 11:12 | Inpatient (IN) | payer MEDICAID ==
[~2018-05-11] VITALS: Ht 167.6 cm; Wt 52.3 kg
--- NOTE | ~2018-05-11 | OP ---
PATIENT NAME: ANETTE LEWIS MEDICAL RECORD: [id number] :59 LOCATION:D.M3 D.1207 ADMISSION DATE:05/11/18 SURGEON: FRANK GIVENS MD DATE OF OPERATION: 05/12/2018 PREOPERATIVE DIAGNOSES: 1. Acute blood loss anemia requiring transfusions. 2. History of gastric antral vascular ectasias. POSTOPERATIVE DIAGNOSES: 1. Acute blood loss anemia requiring transfusions 2. History of gastric antral vascular ectasias. 3. Recurrent vascular ectasias of the antrum and fundus as well as the cardia of the stomach. 4. Hiatal hernia. PROCEDURES: 1. Esophagogastroduodenoscopy with antral biopsies. 2. Argon plasma coagulation therapy to areas of vascular ectasias in the cardia, fundus and antrum of the stomach. SURGEON: Frank Givens MD EMBOSSING PRESS OPERATOR APPRENTICE: None. BLOOD LOSS: Minimal. ANESTHESIA: IV sedation. COMPLICATIONS: None. OPERATIVE FINDINGS: It does appear that she had some clusters of vascular ectasias and at least two of these clusters appeared to have bled recently. ENDOSCOPIC COURSE: The patient was conveyed to endoscopy suite electively on 05/12/2018. IV sedation was induced by the anesthesia staff. A bite block was inserted. A gastroscope was inserted into the mouth. It advanced easily into the hypopharynx. The esophagus was easily intubated as were the stomach and duodenum. Upon withdrawal, retroflexed and angulus views were obtained. Antral biopsies were obtained. I then advanced the argon plasma pilot manager. In the areas of vascular ectasias, I ablated these areas utilizing the argon plasma pilot manager with the esophageal setting in the forced mode. The endoscope was then withdrawn under direct vision. The patient is going to be returned back to the floor. I am going to keep her on a proton pump inhibitor and add Carafate. She may need to undergo further treatments in the future should she have a recurrence of melena, blood loss anemia requiring transfusions or epigastric pain, all of which have been present during this episode of bleeding. TRANSINT:[id number] Voice Confirmation ID: [id number] DOCUMENT ID: [id number] OPERATIVE REPORT [id number] JOSHUAANETTEFRANK CRENSHAW MD at 1208 CC: [id number] DICTATION DATE: 05/12/18 4650 REACTOR SERVICE OPERATOR: 05/12/18 2231 DIS IN 05/13/18 [facility] [address] [place] [address]
--- NOTE | ~2018-05-11 | HP ---
PATIENT: ANETTE LEWIS MEDICAL RECORD: [id number] ACCOUNT: [id number] LOCATION:[address]07 : 59 ADMISSION DATE: 05/11/18 PCP: RICARDO WALLS MD HISTORY AND PHYSICAL EXAMINATION DATE OF ADMISSION: 05/11/2018. CHIEF COMPLAINT: Fatigue, symptomatic anemia, melanotic stool. HISTORY OF PRESENT ILLNESS: This is a 62-year-old female with a history of coronary artery disease, hypertension, hyperlipidemia, hypothyroidism, non-Hodgkin's lymphoma, left lung mass, nicotine dependence, anxiety, depression, gastric ulcer, and gastric antral vascular ectasias who was seen in my office on 05/10/2018 with complaints of being weak and tired. This is how she gets when she has anemia. She states she has had some melanotic stool in the past. She had an EGD by Dr. Guallpa with APC treatment of telangiectasias. This was done about 2 years ago and was recommended to be done about once a year, however, she had a lung biopsy last year and was unable to get it done. She presented to my office with symptoms of anemia. In my office, her hemoglobin was 8.5. About 6-8 weeks ago, her hemoglobin was down to 9.1. She got a unit of blood then, so she is slowly bleeding. I spoke with Dr. Guallpa and he felt that he needed to go back in and retreat her ectasias. PAST MEDICAL HISTORY: She has had coronary artery disease, hypertension, hyperlipidemia, hypothyroidism, non-Hodgkin's lymphoma, left lung mass, nicotine dependence, anxiety, depression, perforated gastric ulcer, gastric antral vascular ectasias. PAST SURGICAL HISTORY: Angioplasty with stents, coronary artery bypass graft. She had a laparotomy patch the perforated gastric ulcer. The open laparotomy was in 2007 with lysis of adhesions, duodenotomy with oversewing of the duodenal ulcer. She also had a left thoracotomy with resection of left upper lobe tumor abutting the mediastinum. Pathology returned hamartoma. She had a tonsillectomy many years ago. ALLERGIES: BACTRIM AND PRAVASTATIN. HOME MEDICATIONS: Include amlodipine 10 mg once a day, lisinopril 10 mg once a day, Paxil 40 mg once a day, gabapentin 600 mg t.i.d., lorazepam 0.5 mg b.i.d. p.r.n. anxiety, Percocet 10/325 one b.i.d. p.r.n. pain, trazodone 50 mg at bedtime, pantoprazole 40 mg once a day, levothyroxine 175 mcg. SOCIAL HISTORY: She is . She is disabled. FAMILY HISTORY: Father at 50 of an VT. Mother is alive and reportedly well. HABITS: She continues to smoke. No alcohol or illicit drug use. REVIEW OF SYSTEMS: GENERAL: She has slow weight loss. HEENT: Has occasional sinus infections. CARDIAC: See above history. PULMONARY: No diagnosis of COPD, though she has been a long time smoker and she did have a lung mass and had a hamartoma reviewed by Dr. Vazquez. HISTORY AND PHYSICAL [id number] ANETTE LEWIS GASTROINTESTINAL: See above history with ulcers and telangiectasias previously treated by Dr. Guallpa a couple of years ago. MUSCULOSKELETAL: Has fibromyalgia, arthritis, chronic neck and back pain. NEUROLOGIC: No migraines. No seizures. PSYCHIATRIC: She has depression and anxiety. PHYSICAL EXAMINATION: VITAL SIGNS: Temperature 98.2, pulse 81, respirations 16, blood pressure 142/67. GENERAL: She appears to be in no acute distress on the hospital bed. HEENT: Grossly within normal limits. NECK: Supple. HEART: Regular rate and rhythm. LUNGS: Fairly clear. ABDOMEN: Mild generalized tenderness. No guarding, no rebound, no mass. EXTREMITIES: No edema. LABORATORY DATA: CBC showing a white count of 5000, hemoglobin 8.7, hematocrit 28. Basic metabolic panel is all okay. Glucose is 84. Liver functions are okay. TSH 0.10. ASSESSMENT: 1. Acute blood loss anemia. 2. History of ulcers with ectasias. PLAN: We will transfuse. Dr. Guallpa has been consulted and other tests or procedures as warranted. TRANSINT:[id number] Voice Confirmation ID: [id number] DOCUMENT ID: [id number] RICARDO WALLS MD at 0821 CC: [id number] DICTATION DATE: 05/12/1824 SUPERVISOR PLATING AND POINT ASSEMBLY: 05/12/18 0048 ADM IN [address] [place] [address]
[2018-05-11] MEDS ORDERED: LISINOPRIL10 MG PO (11:49)
[2018-05-11 11:54] VITALS: BP 142/67; BMI 18.6
[2018-05-11 12:30] VITALS: Ht 167.6 cm; Wt 52.3 kg
[2018-05-11 12:57] LABS: BASOPHILS 0.4 % (0-2); EOSINOPHILS 1.4 % (0-7); HEMOGLOBIN 8.7 g/dL (12-16); IMMATURE GRANULOCYTES 0.2 % (0-5); LYMPHOCYTES 32.9 % (15-50); MCH 25.7 pg (26.0-34.0); MCHC 31.1 g/dL (31.0-37.0); MCV 82.8 fL (80.0-100.0); MEAN PLATELET VOLUME 10.1 fL (7.4-10.4); MONOCYTES 7.9 % (2-11); NEUTROPHILS 57.2 % (40-80); PLATELET COUNT 266 10x3/uL (130-400); RBC 3.38 10x6/uL (4.00-5.40)
[2018-05-11 13:25] LABS: ALBUMIN 3.5 g/dL (3.4-5.0); ALKALINE PHOSPHATASE 97 U/L (46-116); ALT (SGPT) 12 U/L (10-68); BILIRUBIN - TOTAL 0.25 mg/dL (0.2-1.3); CALC OSMOLALITY 275 mosm/kg (275-300); CALCIUM 8.3 mg/dL (8.5-10.1); CARBON DIOXIDE 25.8 mmol/L (21.0-32.0); CHLORIDE - SERUM 102 mmol/L (98-107); CREATININE - SERUM 0.7 mg/dL (0.6-1.3); GLUCOSE 84 mg/dL (74-106); PROTEIN - SERUM 6.1 g/dL (6.4-8.2); SODIUM 139 mmol/L (136-145); UREA NITROGEN 9 mg/dL (7-18); eGFR NON AFRICAN AMERICAN 90 mL/min (90-120)
[2018-05-11 13:28] VITALS: BP 174/76
[2018-05-11 17:08] VITALS: BP 152/64
[2018-05-11 20:00] VITALS: BP 149/62
[2018-05-12] VITALS: BP 152/64
[2018-05-12 05:16] VITALS: BP 158/69
[2018-05-12 06:28] LABS: CALC OSMOLALITY 282 mosm/kg (275-300); CALCIUM 8.7 mg/dL (8.5-10.1); CARBON DIOXIDE 26.7 mmol/L (21.0-32.0); CHLORIDE - SERUM 106 mmol/L (98-107); CREATININE - SERUM 0.7 mg/dL (0.6-1.3); GLUCOSE 92 mg/dL (74-106); POTASSIUM - SERUM 4.2 mmol/L (3.5-5.1); SODIUM 143 mmol/L (136-145); UREA NITROGEN 8 mg/dL (7-18); eGFR NON AFRICAN AMERICAN 90 mL/min (90-120)
[2018-05-12 06:42] LABS: BASOPHILS 0.5 % (0-2); EOSINOPHILS 1.8 % (0-7); LYMPHOCYTES 41.3 % (15-50); MCH 26.2 pg (26.0-34.0); MCHC 31.7 g/dL (31.0-37.0); MCV 82.9 fL (80.0-100.0); MEAN PLATELET VOLUME 10.3 fL (7.4-10.4); MONOCYTES 11.2 % (2-11); NEUTROPHILS 45.2 % (40-80); PLATELET COUNT 262 10x3/uL (130-400); RDW 15.2 % (11.5-14.5); WBC 3.8 10x3/uL (4.8-10.8)
[2018-05-12 07:12] LABS: HEMATOCRIT 38.2 % (36.0-48.0); HEMOGLOBIN 12.1 g/dL (12-16); RBC 4.61 10x6/uL (4.00-5.40)
[2018-05-12 07:58] VITALS: BP 144/66
[2018-05-12 16:50] VITALS: BP 156/60
[2018-05-12 20:24] VITALS: BP 138/67
[2018-05-13 00:58] VITALS: BP 132/67
[2018-05-13 04:00] VITALS: BP 110/50
[2018-05-13 08:15] VITALS: BP 154/69
[2018-05-13] MEDS ORDERED: CARAFATE1 G PO (08:52)
== END 2018-05-13 11:03 | disposition home or self-care (01) | DRG 378 ==
LOC: D.M3 11:12
PROVIDERS: Family Medicine; Surgery
PROC: 0W3P8ZZ Control Bleeding in Gastrointestinal Tract, Via Natural or Artificial Opening Endoscopic (ICD-10-PCS; 2018-05-12)
PROC: 0DB68ZX Excision of Stomach, Via Natural or Artificial Opening Endoscopic, Diagnostic (ICD-10-PCS; principal; 2018-05-12 11:46)
DX: K31.811 Angiodysplasia of stomach and duodenum with bleeding (principal); D62 Acute posthemorrhagic anemia; K44.9 Diaphragmatic hernia without obstruction or gangrene; I25.10 Atherosclerotic heart disease of native coronary artery without angina pectoris; I10 Essential (primary) hypertension; E03.9 Hypothyroidism, unspecified; E78.5 Hyperlipidemia, unspecified; F41.9 Anxiety disorder, unspecified; F32.9 Major depressive disorder, single episode, unspecified; Z85.72 Personal history of non-Hodgkin lymphomas

== ENCOUNTER 2018-09-07 11:20 | Outpatient (CLI) | payer MEDICAID ==
[~2018-09-07] VITALS: Ht 167.6 cm; Wt 51.8 kg
[~2018-09-07 11:20] MED LIST changes: +CARAFATE1 G PO; +LISINOPRIL10 MG PO
[2018-09-07 11:33] VITALS: BP 134/53; Ht 167.6 cm; Wt 51.8 kg
--- NOTE | 2018-09-07 14:00 | NUR ---
1400 ROOM CHECK, BLOOD INFUSING WITHOUT PROBLEMS, DENIES ISSUES. CALL LIGHT IN HAND, RATE AT 225/CC/HR. DENIES NEEDS.
--- NOTE | 2018-09-07 14:29 | NUR ---
1425 DENIES PROBLEMS, RATE INCREASED TO 250/CC/HR.
--- NOTE | 2018-09-07 15:32 | NUR ---
1505 1ST UNIT BLOOD HAS COMPLETED, LINE BEING FLUSHED WITH NS. 1520 UP TO BR VOIDS LG AMT. 1525 2ND UNIT CHECKED AT BEDSIDE, BY THIS NURSE AND IZABEL PRESSLEY RN INITIATED AT 50/CC/HR
--- NOTE | 2018-09-07 17:53 | NUR ---
1708 2ND UNIT BLOOD COMPLETED LINE BEING FLUSHED WITH NS. 1738 UP TO BR VOIDS LG AMT. IV DC'D WTIH CATH INTACT, GETTING DRESSED. 1748 DAUGHTER HERE DC INSTS REVIEWED RELEASED IN WC.
== END 2018-09-07 17:48 | disposition home or self-care (01) ==
LOC: D.OPS 11:20
PROVIDERS: ATTEND Family Medicine
DX: D64.9 Anemia, unspecified (principal)

== ENCOUNTER → 2018-09-14 10:55 | Day surgery (SDC) | payer MEDICAID ==
[~2018-09-14] VITALS: Ht 167.6 cm; Wt 50.5 kg
[2018-09-14 11:24] LABS: BASOPHILS 0.5 % (0-2); EOSINOPHILS 0.8 % (0-7); HEMATOCRIT 39.4 % (36.0-48.0); IMMATURE GRANULOCYTES 0.7 % (0-5); LYMPHOCYTES 22.2 % (15-50); MCH 22.7 pg (26.0-34.0); MCHC 30.5 g/dL (31.0-37.0); MCV 74.6 fL (80.0-100.0); MEAN PLATELET VOLUME 10.1 fL (7.4-10.4); MONOCYTES 8.1 % (2-11); NEUTROPHILS 67.7 % (40-80); RBC 5.28 10x6/uL (4.00-5.40); RDW 19.1 % (11.5-14.5); WBC 7.5 10x3/uL (4.8-10.8)
[2018-09-14 11:29] LABS: PLATELET COUNT 335 10x3/uL (130-400)
[2018-09-14 11:41] LABS: INR 1.04 (0.85-1.17); PROTIME 13.1 SECONDS (11.6-15.0)
[2018-09-14 11:54] VITALS: BP 146/64; Ht 167.6 cm; Wt 50.5 kg
--- NOTE | 2018-09-16 16:42 | HP ---
PATIENT: ANETTE LEWIS MEDICAL RECORD: [id number] ACCOUNT: [id number] LOCATION:FIDE : 59 ADMISSION DATE: 09/14/18 PCP: RICARDO WALLS MD HISTORY AND PHYSICAL EXAMINATION CHIEF COMPLAINT: Anemia. HISTORY OF PRESENT ILLNESS: The patient had anemia recently. The patient has required a blood transfusion due to blood loss anemia. She has had a history of gastric antral vascular ectasias and she has had some melena. So it is likely that these ectasias have recurred and she is here to undergo argon plasma coagulation therapy. HOME MEDICATIONS: Please see the nursing list. SOCIAL HISTORY: She smokes. HOME MEDICINES: BACTRIM WELL PRAVASTATIN. PAST MEDICAL AND SURGICAL HISTORY: Coronary artery disease, hypertension, history of CABG, history of myocardial infarction, history of coronary stents, history of gastroesophageal reflux, history of a laparotomy, history of left thoracotomy with resection, history of mediastinoscopy, history of non-Hodgkin's lymphoma, hypothyroidism, on replacement therapy. PHYSICAL EXAMINATION: GENERAL: The patient does not appear acutely ill. She does not appear chronically ill. VITAL SIGNS: Reviewed. EARS: External ears appear normal. EYES: Extraocular movements are intact. NECK: Trachea is midline. CHEST: No intercostal retractions. PULMONARY: Nonlabored. IMPRESSION: 1. Acute blood loss anemia requiring transfusions. 2. Melena. 3. History of gastric antral vascular ectasias. PLAN: Procedure will be EGD with ablation of any gastric antral vascular ectasias identified. TRANSINT:[id number] Voice Confirmation ID: [id number] DOCUMENT ID: [id number] HISTORY AND PHYSICAL [id number] JOSHUAANETTE SAAD CRAWFORD MD at 1642 CC: RICARDO WALLS MD, Julius MCCORMICK EDWARD [id number] DICTATION DATE: 09/14/18 1333 METAL MOLDER: 09/14/18 1411 [facility] 09/14/18 [address] [place] [address]
--- NOTE | 2018-09-16 16:42 | OP ---
PATIENT NAME: ANETTE LEWIS MEDICAL RECORD: [id number] :59 LOCATION:D.OPS ADMISSION DATE: SURGEON: SAAD GIVENS MD DATE OF OPERATION: 09/14/2018 PREOPERATIVE DIAGNOSES: 1. Melena. 2. Acute blood loss anemia requiring transfusions. 3. History of angioectasias of the stomach. POSTOPERATIVE DIAGNOSES: 1. Melena. 2. Acute blood loss anemia requiring transfusions. 3. History of angioectasias of the stomach, with about 20 punctate angioectasias throughout the entire stomach. No angioectasias within the duodenum. The patient did have one acute appearing linear ulcer on the lesser curve of the stomach just proximal to the incisura angularis. PROCEDURES: 1. Esophagogastroduodenoscopy with antral biopsies. 2. Treatment of the ulcer as well as angioectasias with the argon plasma client reporting associate utilizing the esophageal setting in the forced mode. The risks, possible complications and alternatives to the procedure were explained to the patient. She elects to proceed. ENDOSCOPIC COURSE: The patient was conveyed to endoscopy suite electively on 09/14/2018. IV sedation was induced by the anesthesia staff. A bite block was inserted. A gastroscope was inserted into the mouth. It was advanced easily into the hypopharynx. The esophagus was easily intubated as were the stomach and duodenum. Upon withdrawal, retroflexed and angulus views were obtained. Antral biopsies were obtained. I then utilized the argon plasma client reporting associate to achieve hemostasis at the biopsy sites and then I carefully interrogated the entire stomach and ablated about 20 angioectasias throughout the stomach. I identified no other potential source of bleeding other than for a linear ulcer that appeared to be an acute ulcer on the lesser curve of the stomach and I also treated this with the argon plasma client reporting associate. The gastroscope was then withdrawn under direct vision. PLAN: I will plan to have the patient double up on her Protonix. I have no reason to schedule this patient for a surveillance upper endoscopy. I contacted Dr. Inocencio Campbell and we discussed the possibility that her blood loss anemia may be coming from some other source other than her stomach. He is going to be checking her hematocrits closely. TRANSINT:[id number] Voice Confirmation ID: [id number] DOCUMENT ID: [id number] OPERATIVE REPORT [id number] ANETTE LEWIS ROBERT MD at 1642 CC: [id number] DICTATION DATE: 09/14/18 1422 ROLLER COASTER ENGINEER: 09/14/18 1609 [facility] 09/14/18 [address] [place] [address]
== END | disposition home or self-care (01) ==
LOC: D.OPS 09-07 12:00 → D.PAN 09-07 12:00 → D.OPS 10:55 → D.PAN 12:00 → D.OPS 13:00
PROVIDERS: Anesthesiology; ATTEND Surgery
DX: K31.819 Angiodysplasia of stomach and duodenum without bleeding (principal); D62 Acute posthemorrhagic anemia; K25.3 Acute gastric ulcer without hemorrhage or perforation; Z01.812 Encounter for preprocedural laboratory examination

== ENCOUNTER 2018-10-14 14:54 | Observation (INO) | payer MEDICAID ==
[~2018-10-14] VITALS: Ht 167.6 cm; Wt 50.8 kg
[~2018-10-14 14:54] MED LIST changes: +BAYER CHEWABLE81 MG PO
--- NOTE | 2018-10-14 15:15 | NUR ---
RECEIVED PATEITN TO ROOM 2203 VIA WC FROM [facility] OFFICE. A/O X3. SKIN INTACT WITHOUT REDNESS. UP TO BR PER SELF. DENIES NEEDS. [facility]
[2018-10-14 15:29] VITALS: BP 108/38; BMI 18.1
[2018-10-14 16:11] LABS: HEMATOCRIT 21.2 % (36.0-48.0); IMMATURE GRANULOCYTES 0.2 % (0-5); LYMPHOCYTES 30.6 % (15-50); MCH 21.7 pg (26.0-34.0); MCHC 30.2 g/dL (31.0-37.0); MCV 71.9 fL (80.0-100.0); MEAN PLATELET VOLUME 9.6 fL (7.4-10.4); MONOCYTES 7.8 % (2-11); NEUTROPHILS 59.4 % (40-80); PLATELET COUNT 232 10x3/uL (130-400); RBC 2.95 10x6/uL (4.00-5.40); RDW 18.2 % (11.5-14.5)
[2018-10-14 16:22] LABS: HEMOGLOBIN 6.4 g/dL (12-16)
--- NOTE | 2018-10-14 16:22 | NUR ---
IV SITED TO RIGHT FOREARM WITH 20G AFTER 2 ATTEMPTS. TOLERATED WELL.
[2018-10-14 16:27] LABS: CALC OSMOLALITY 277 mosm/kg (275-300); CALCIUM 8.2 mg/dL (8.5-10.1); CARBON DIOXIDE 25.8 mmol/L (21.0-32.0); CHLORIDE - SERUM 104 mmol/L (98-107); CREATININE - SERUM 0.7 mg/dL (0.6-1.3); GLUCOSE 102 mg/dL (74-106); POTASSIUM - SERUM 3.4 mmol/L (3.5-5.1); SODIUM 140 mmol/L (136-145); UREA NITROGEN 11 mg/dL (7-18); eGFR NON AFRICAN AMERICAN 90 mL/min (90-120)
[2018-10-14 20:49] VITALS: BP 97/41
--- NOTE | 2018-10-14 22:02 | NUR ---
SECOND UNIT OF PRBC INITIATED BY WILBUR HOOKS. VITAL SIGNS STABLE. CPOC
--- NOTE | 2018-10-15 00:52 | NUR ---
SECOND UNIT OF BLOOD COMPLETED. VITAL SIGNS STABLE.
[2018-10-15 02:08] VITALS: BP 108/48
[2018-10-15 04:49] VITALS: BP 148/62
--- NOTE | 2018-10-15 05:31 | NUR ---
I have reviewed this patient and I concur with the Shift Assessment completed by the Licensed Practical Nurse today this shift.
[2018-10-15 05:46] LABS: BASOPHILS 0.4 % (0-2); EOSINOPHILS 1.8 % (0-7); IMMATURE GRANULOCYTES 0.4 % (0-5); MCH 23.2 pg (26.0-34.0); MCHC 30.9 g/dL (31.0-37.0); MEAN PLATELET VOLUME 10.2 fL (7.4-10.4); MONOCYTES 9.9 % (2-11); NEUTROPHILS 58.5 % (40-80); PLATELET COUNT 223 10x3/uL (130-400); RDW 18.7 % (11.5-14.5); WBC 4.5 10x3/uL (4.8-10.8)
[2018-10-15 05:48] LABS: HEMATOCRIT 28.8 % (36.0-48.0); HEMOGLOBIN 8.9 g/dL (12-16); MCV 75.2 fL (80.0-100.0); RBC 3.83 10x6/uL (4.00-5.40)
[2018-10-15 05:53] LABS: CALC OSMOLALITY 287 mosm/kg (275-300); CALCIUM 8.7 mg/dL (8.5-10.1); CARBON DIOXIDE 26.3 mmol/L (21.0-32.0); CHLORIDE - SERUM 109 mmol/L (98-107); CREATININE - SERUM 0.8 mg/dL (0.6-1.3); GLUCOSE 111 mg/dL (74-106); POTASSIUM - SERUM 3.7 mmol/L (3.5-5.1); SODIUM 144 mmol/L (136-145); UREA NITROGEN 12 mg/dL (7-18); eGFR NON AFRICAN AMERICAN 77 mL/min (90-120)
--- NOTE | 2018-10-15 07:39 | NUR ---
PT SITTING UP IN BED WATCHING TV AND DRINKING COFFEE. DENIES ANY NEEDS.NO S/S OF ACUTE DISTRESS. CL IN PLACE.
[2018-10-15 09:39] VITALS: BP 139/58
[2018-10-15 10:56] VITALS: BMI 18.0
[2018-10-15 12:11] VITALS: Ht 167.6 cm; Wt 50.8 kg
[2018-10-15 13:38] VITALS: BP 153/66
--- NOTE | 2018-10-15 15:19 | NUR ---
SPOKE WITH DR WALLS ABOUT PT TO DC. DR WALLS,"OK IF DR GIVENS IS READY TO DC PT." SPOKE WITH DR GIVENS WHO , "IS OK AND DOES NOT NEED PT TO F/U OR TO SEE THE PT." CALLED DR WALLS AND DR MOON PUT IN DC. IV INFILTRATED. DC IV WITH TIP IN TACT. YAQUELIN HOOKS RESITED IV TO R FOREARM. FLUSHED WELL. IRON INFUSING PER MD ORDER. NO S/S OF ACUTE DISTRESS. CL IN PLACE.
[2018-10-15 15:26] LABS: BASOPHILS 0.4 % (0-2); EOSINOPHILS 0.2 % (0-7); HEMOGLOBIN 8.1 g/dL (12-16); IMMATURE GRANULOCYTES 0.4 % (0-5); LYMPHOCYTES 25.4 % (15-50); MCH 23.1 pg (26.0-34.0); MCHC 31.2 g/dL (31.0-37.0); MCV 74.3 fL (80.0-100.0); MEAN PLATELET VOLUME 10.2 fL (7.4-10.4); MONOCYTES 11.3 % (2-11); NEUTROPHILS 62.3 % (40-80); PLATELET COUNT 222 10x3/uL (130-400); RDW 18.7 % (11.5-14.5); WBC 4.5 10x3/uL (4.8-10.8)
--- NOTE | 2018-10-15 18:31 | NUR ---
PT RESTING IN BED. NO S/S OF ACUTE DISTRESS. CL IN PLACE.
--- NOTE | 2018-10-15 19:30 | NUR ---
PT SIGNED DISCHARGED PAPERS. DC'D IV WITH CATHETER TIP INTACT. TAKEN DOWNSTAIRS BY WHEELCHAIR WITH DAUGHTER.
== END 2018-10-15 19:40 | disposition home or self-care (01) ==
LOC: OBSVTIME 14:54 → D.MS 14:54
PROVIDERS: Family Medicine; ADMIT Family Medicine; ATTEND Family Medicine
DX: D64.9 Anemia, unspecified (principal); K31.811 Angiodysplasia of stomach and duodenum with bleeding; I25.10 Atherosclerotic heart disease of native coronary artery without angina pectoris; J44.9 Chronic obstructive pulmonary disease, unspecified; E03.9 Hypothyroidism, unspecified; Z72.0 Tobacco use

== ENCOUNTER 2018-11-23 11:11 | Day surgery (SDC) | payer MEDICAID ==
[2018-11-23 11:27] LABS: BASOPHILS 1.4 % (0-2); EOSINOPHILS 0.8 % (0-7); HEMATOCRIT 39.9 % (36.0-48.0); HEMOGLOBIN 12.6 g/dL (12-16); LYMPHOCYTES 35.2 % (15-50); MCH 26.6 pg (26.0-34.0); MCHC 31.6 g/dL (31.0-37.0); MCV 84.2 fL (80.0-100.0); MEAN PLATELET VOLUME 9.9 fL (7.4-10.4); MONOCYTES 7.9 % (2-11); NEUTROPHILS 54.7 % (40-80); PLATELET COUNT 256 10x3/uL (130-400); RBC 4.74 10x6/uL (4.00-5.40); WBC 3.7 10x3/uL (4.8-10.8)
[2018-11-23 11:39] LABS: APTT 36.5 SECONDS (22.8-39.4); INR 1.1 (0.85-1.17); PROTIME 13.7 SECONDS (11.6-15.0)
[2018-11-23 11:45] LABS: ANION GAP 12.3 mmol/L (8-16); CALCIUM 9.2 mg/dL (8.5-10.1); CARBON DIOXIDE 27.6 mmol/L (21.0-32.0); CREATININE - SERUM 0.9 mg/dL (0.6-1.3); POTASSIUM - SERUM 3.9 mmol/L (3.5-5.1)
[2018-11-23 13:14] VITALS: BP 115/62; BMI 18.4
--- NOTE | 2018-11-23 18:52 | NUR ---
TOLERATED FULL LIQ DIET WELL, PASSING GAS, NO BLEEDING. IV REMOVED AT 1845. INSTRUCTIONS GIVEN AND RX FOR FLAGYL GIVEN.
--- NOTE | 2018-11-26 17:03 | HP ---
PATIENT: ANETTE LEWIS MEDICAL RECORD: [id number] ACCOUNT: [id number] LOCATION:D.OPS : 59 ADMISSION DATE: 11/23/18 PCP: RICARDO WALLS MD HISTORY AND PHYSICAL EXAMINATION CHIEF COMPLAINT: Anemia. HISTORY OF PRESENT ILLNESS: The patient has known gastric antral vascular ectasias. She states her last colonoscopy was in 2013. I have been asked to perform a colonoscopy to make sure that she does not have a lower tract source of bleeding. She has had no melena. No hematochezia. ALLERGIES: BACTRIM WELL PRAVASTATIN. HOME MEDICATIONS: Please see the nursing list. She is currently on Plavix. She is unable to stop Plavix due to recent coronary interventions. PAST MEDICAL AND SURGICAL HISTORY: Coronary artery bypass surgery, colonoscopy, coronary stents, gastric antral vascular ectasias, iron deficiency anemia, peptic ulcer disease, angina, mediastinal lymphadenopathy, hypertension, coronary artery disease, and COPD. SOCIAL HISTORY: She is a smoker. PHYSICAL EXAMINATION: GENERAL: The patient does not appear acutely ill. She does not appear chronically ill. VITAL SIGNS: Reviewed. EARS: External ears appear normal. EYES: Extraocular movements are intact. NECK: Trachea is midline. CHEST: No intercostal retractions. PULMONARY: Nonlabored. No stridor. IMPRESSION: Iron deficiency anemia. PLAN: Colonoscopy. TRANSINT:[id number] Voice Confirmation ID: [id number] DOCUMENT ID: [id number] SAAD GIVENS MD at 1703 CC: RICARDO WALLS MD, LUPIS MCCORMICK and ADRIÁN DILL MD [id number] DICTATION DATE: 11/23/18 165 PURCHASING ENGINEER: 11/23/18 1730 [facility] 11/23/18 [place] [id number] [place] [id number]
--- NOTE | 2018-11-26 17:12 | OP ---
PATIENT NAME: ANETTE LEWIS MEDICAL RECORD: [id number] :59 LOCATION:D.OPS ADMISSION DATE: SURGEON: SAAD GIVENS MD DATE OF OPERATION: 11/23/2018 PREOPERATIVE DIAGNOSIS: Iron deficiency anemia. POSTOPERATIVE DIAGNOSES: 1. Iron deficiency anemia with inadequate prep. 2. Four colorectal polyps, at least 2 of which could account for the patient's blood loss. PROCEDURES: 1. Total colonoscopy to cecum. 2. Hot biopsy forceps polypectomies times 2. SURGEON: Saad Givens MD TRAFFIC SAFETY ADMINISTRATOR: None. BLOOD LOSS: Minimal. ANESTHESIA: General. COMPLICATIONS: None. The risks, possible complications and alternatives to the procedure were explained to the patient. She elects to proceed. ENDOSCOPIC COURSE: The patient was conveyed to the endoscopy suite electively on 11/23/2018. General anesthesia was induced by the anesthesia staff. The patient was placed in the [place] position. A digital rectal examination was performed. A colonoscope was inserted through the anus. It was easily advanced to the cecum. The prep was inadequate. I slowly withdrew the endoscope. I irrigated and aspirated extensively. Four sessile or semi-pedunculated polyps were noted. These ranged in size from 8 mm to 2.4 cm. All were removed in their entireties utilizing the hot biopsy forceps polypectomy technique. The most worrisome of these was in the rectum at about 10 cm. I dragged the folds. The pullback was greater than a half hour pullback. I irrigated and aspirated extensively. I utilized not only direct imaging, but also narrow band imaging. The patient was then conveyed back to her room. I will plan that she will follow up with me in the office in 2-3 weeks. I will plan for her next colonoscopy to take place in 3 years. It may be necessary to do a 2-day prep as this current prep was inadequate. TRANSINT:[id number] Voice Confirmation ID: [id number] DOCUMENT ID: [id number] OPERATIVE REPORT [id number] ANETTE LEWIS ROBERT MD at 1712 CC: RICARDO WALLS MD and ADRIÁN DILL MD [id number] DICTATION DATE: 11/23/181955 SYBASE DEVELOPER: 11/24/18 0531 [facility] 11/23/[address] [facility] [address] [place] [address]
== END 2018-11-23 19:00 | disposition home or self-care (01) ==
LOC: D.OPS 11:11
PROVIDERS: Anesthesiology; ATTEND Surgery
DX: D12.7 Benign neoplasm of rectosigmoid junction (principal); D12.0 Benign neoplasm of cecum; D12.5 Benign neoplasm of sigmoid colon; D12.8 Benign neoplasm of rectum; D50.9 Iron deficiency anemia, unspecified; Z01.812 Encounter for preprocedural laboratory examination

== ENCOUNTER 2019-02-26 11:12 | Emergency (ER) | payer MEDICAID ==
[~2019-02-26] VITALS: Ht 167.6 cm; Wt 55.0 kg
[2019-02-26 11:15] VITALS: Ht 167.6 cm; Wt 55.0 kg
[2019-02-26 11:44] LABS: BASOPHILS 0.3 % (0-2); EOSINOPHILS 1.2 % (0-7); HEMATOCRIT 35.2 % (36.0-48.0); IMMATURE GRANULOCYTES 0.4 % (0-5); LYMPHOCYTES 22.8 % (15-50); MCH 26.3 pg (26.0-34.0); MCHC 31.3 g/dL (31.0-37.0); MEAN PLATELET VOLUME 10.4 fL (7.4-10.4); MONOCYTES 6.7 % (2-11); NEUTROPHILS 68.6 % (40-80); PLATELET COUNT 283 10x3/uL (130-400); RBC 4.19 10x6/uL (4.00-5.40); RDW 25.2 % (11.5-14.5); WBC 6.7 10x3/uL (4.8-10.8)
[2019-02-26 11:47] LABS: APPEARANCE CLEAR (CLEAR); BILIRUBIN NEGATIVE (NEGATIVE); COLOR YELLOW (YELLOW); GLUCOSE NEGATIVE (NEGATIVE); KETONE NEGATIVE (NEGATIVE); NITRITE NEGATIVE (NEGATIVE); PROTEIN NEGATIVE (NEGATIVE); SPECIFIC GRAVITY 1.015 (1.005-1.020); UROBILINOGEN NORMAL (NORMAL)
[2019-02-26 11:59] LABS: ALBUMIN 3.6 g/dL (3.4-5.0); ANION GAP 13.9 mmol/L (8-16); BILIRUBIN - TOTAL 0.22 mg/dL (0.2-1.3); CALCIUM 8.9 mg/dL (8.5-10.1); CARBON DIOXIDE 27.2 mmol/L (21.0-32.0); CREATININE - SERUM 0.9 mg/dL (0.6-1.3); POTASSIUM - SERUM 5.1 mmol/L (3.5-5.1)
[2019-02-26 12:01] LABS: INR 1.04 (0.85-1.17); PROTIME 13.1 SECONDS (11.6-15.0)
[2019-02-26 13:26] VITALS: BP 130/77
== END 2019-02-26 13:27 | disposition home or self-care (01) ==
LOC: D.ER 11:12
PROVIDERS: Emergency Medicine
DX: K92.2 Gastrointestinal hemorrhage, unspecified (principal); F17.210 Nicotine dependence, cigarettes, uncomplicated; F32.9 Major depressive disorder, single episode, unspecified; I10 Essential (primary) hypertension

== ENCOUNTER 2019-06-27 12:55 | Inpatient (IN) | payer MEDICAID ==
[~2019-06-27] VITALS: Ht 167.6 cm; Wt 54.1 kg
--- NOTE | 2019-06-27 14:00 | NUR ---
ARRIVE TO ROOM VIA WHEELCHAIR FROM DOCTOR'S OFFICE. ALERT AND ORIENTED X4. AMBULATES TO BED. GAIT STEADY. FAMILY AT BEDSIDE. NO SCDs DUE TO GI BLEED. CONSENTS FOR PRBC TRANSFUSION SIGNED ON CHART. CONTINUE ADMISSION PROCESS AND SAFETY PRECAUTIONS.
[2019-06-27 14:51] VITALS: BP 107/75; BMI 19.2
[2019-06-27 16:51] VITALS: BP 130/80
--- NOTE | 2019-06-27 19:14 | NUR ---
RESTING WITH EYES CLOSED RESP EVEN AND UNLABORED BED LOW AND LOCKED CALL LIGHT IN REACH OF PT
--- NOTE | 2019-06-27 19:25 | NUR ---
PT AWAKE AND OX4 FIRST UNIT OF PLANED 2 IS BEING SPIKED TO INFUSE LUNGS CLEAR LEFT UPPER LOBE DWEMINISHED OR ABSENT
[2019-06-27 20:00] VITALS: BP 149/57
[2019-06-27 23:00] VITALS: BP 173/77
[2019-06-27] MEDS ORDERED: PERCOCET 10-321 EAC1 PO (23:05)
--- NOTE | 2019-06-28 03:45 | NUR ---
I have reviewed this patient and I concur with the Shift Assessment completed by the Licensed Practical Nurse today this shift.
[2019-06-28 04:30] VITALS: BP 154/64
[2019-06-28 05:54] LABS: CALC OSMOLALITY 281 mosm/kg (275-300); CALCIUM 8.6 mg/dL (8.5-10.1); CARBON DIOXIDE 26.1 mmol/L (21.0-32.0); CHLORIDE - SERUM 107 mmol/L (98-107); CREATININE - SERUM 0.8 mg/dL (0.6-1.3); GLUCOSE 103 mg/dL (74-106); POTASSIUM - SERUM 3.6 mmol/L (3.5-5.1); SODIUM 142 mmol/L (136-145); UREA NITROGEN 9 mg/dL (7-18); eGFR NON AFRICAN AMERICAN 77 mL/min (90-120)
[2019-06-28 05:56] LABS: BASOPHILS 0.6 % (0-2); EOSINOPHILS 1.5 % (0-7); IMMATURE GRANULOCYTES 0.6 % (0-5); LYMPHOCYTES 26.1 % (15-50); MCH 24.7 pg (26.0-34.0); MCHC 32.4 g/dL (31.0-37.0); MCV 76.4 fL (80.0-100.0); MEAN PLATELET VOLUME 10.5 fL (7.4-10.4); MONOCYTES 10.9 % (2-11); NEUTROPHILS 60.3 % (40-80); PLATELET COUNT 272 10x3/uL (130-400); RBC 4.45 10x6/uL (4.00-5.40); RDW 16.9 % (11.5-14.5); WBC 5.3 10x3/uL (4.8-10.8)
--- NOTE | 2019-06-28 07:38 | NUR ---
REPORT RECIEVED. PT SITTING SEMI FOWLERS IN BED CURRENTLY GETTING A BREATHING TREATMENT. PT HAS A L FA PIV THAT IS SL. BED LOCKED AND IN LOWEST POSTIION, CALL LIGHT WITHIN REACH. WILL CTM
[2019-06-28 08:32] VITALS: BP 159/70
--- NOTE | 2019-06-28 08:56 | HP ---
PATIENT: ANETTE LEWIS MEDICAL RECORD: [id number] ACCOUNT: [id number] LOCATION:[address] : [birth year] ADMISSION DATE: 06/27/19 PCP: RICARDO WALLS MD HISTORY AND PHYSICAL EXAMINATION DATE ASSIGNED TO OBSERVATION: 06/27/2019 CHIEF COMPLAINT: Anemia, weakness. HISTORY OF PRESENT ILLNESS: This is a 63-year-old female with recurrent anemia who is brought in by her daughter stating she feels very weak and feels like she is anemic again. She has had some blood per rectum over the last couple of months. She has seen Dr. Guallpa in the past. She has a history of gastric antral vascular ectasias. Last colonoscopy on her, I believe, in September or October of 2018. In my office, her hemoglobin was 6.6 and hematocrit 22.1. She was in a wheelchair. She was so weak. Her MCV was 74 and she is assigned to observation for blood transfusion and consultation to Dr. Guallpa. PAST MEDICAL AND SURGICAL HISTORY: Coronary artery disease, hypertension, history of myocardial infarction, gastroesophageal reflux, non-Hodgkin's lymphoma, hypothyroidism, anxiety, depression, chronic back and neck pain, iron deficiency anemia, COPD, and pulmonary hamartoma. PAST SURGICAL HISTORY: Hysterectomy, coronary artery bypass graft, placement of stents for coronary artery disease, open laparotomy in 2007 with lysis of adhesions, duodenotomy with oversewing of duodenal ulcer. She had a left thoracotomy with resection of left upper lobe tumor abutting the mediastinum. She has had a tonsillectomy. HOME MEDICATIONS: Levothyroxine 150 mcg once a day, Percocet 10/325 one p.o. t.i.d., lisinopril 20 mg once a day, amlodipine 10 mg once a day, trazodone 50 mg 1 p.o. at bedtime, lorazepam 0.5 mg b.i.d. p.r.n. anxiety, gabapentin 600 mg 3 times a day, Paxil 40 mg once a day, and pantoprazole 40 mg once a day. ALLERGIES: BACTRIM AND PRAVASTATIN. HABITS: She continues to smoke cigarettes. Denies alcohol or drug use. SOCIAL HISTORY: She is recently . She is on disability due to her medical problems. FAMILY HISTORY: Father at 50 of an DE. Mother is alive and well. REVIEW OF SYSTEMS: GENERAL: She denies recent weight changes. HEENT: No particular sinus or allergy problems. RESPIRATORY: No known diagnosis of COPD. She is a long time smoker and has some COPD. GASTROINTESTINAL: History of reflux, history of ulcer, status post surgery. 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 GENITOURINARY: No significant problems there. MUSCULOSKELETAL: Has chronic neck and back pain. NEUROLOGIC: No migraines. No seizures. PSYCHIATRIC: She has anxiety and depression. HISTORY AND PHYSICAL [id number] ANETTE LEWIS PHYSICAL EXAMINATION: VITAL SIGNS: Generally, she is weak, thin, and pale. HEENT: Grossly within normal limits. NECK: Supple. HEART: Regular rate and rhythm. LUNGS: Fairly clear. ABDOMEN: With some mild tenderness in the epigastric area. No guarding, no rebound, no mass. BACK: She has chronic neck and back pains. EXTREMITIES: No edema. LABORATORY: CBC done in my office showed hemoglobin of 6.6, hematocrit 22.1, MCV 74. ASSESSMENT: Symptomatic anemia. PLAN: Hemoccult stools transfuse 2 units of packed red blood cells. I will ask Dr. Guallpa to see. Other tests or procedures as warranted. TRANSINT:[id number] Voice Confirmation ID: [id number] DOCUMENT ID: [id number] RICARDO WALLS MD at 0856 CC: [id number] DICTATION DATE: 06/27/192323 EXECUTIVE MEETING MANAGER: 06/28/19 0205 [facility] IN [place] [address] [place] [address]
--- NOTE | 2019-06-28 08:56 | HP ---
PATIENT: ANETTE LEWIS MEDICAL RECORD: [id number] ACCOUNT: [id number] LOCATION:[address] : [birth year] ADMISSION DATE: 06/27/19 PCP: RICARDO WALLS MD HISTORY AND PHYSICAL EXAMINATION DATE OF ADMISSION: 06/27/2019 CHIEF COMPLAINT: Weak and anemic. HISTORY OF PRESENT ILLNESS: This is a 63-year-old female who has been battling anemia problems for at least a couple of years now. She presented to my office today stating she feels real weak. She feels like she is anemic again. She feels like she has no strength and could fall anytime. She had a CBC done in our office today and her hemoglobin was 6.6, hematocrit 22.1 with an MCV of 74. Basically, we really could not wait until tomorrow and transfused a couple of units as an outpatient, so we are assigning her to observation now for blood transfusion and will consult Dr. Guallpa who is well acquainted with this patient. She has a known history of gastric antral vascular ectasias by Dr. Guallpa. TRANSINT:[id number] Voice Confirmation ID: [id number] DOCUMENT ID: [id number] RICARDO WALLS MD at 0856 CC: [id number] DICTATION DATE: 06/27/192323 COUPLER: 06/28/19 0214 ADM IN [place] [id number] [place] [id number]
[2019-06-28 09:00] VITALS: Ht 167.6 cm; Wt 54.1 kg
[2019-06-28 13:01] VITALS: BP 136/60
--- NOTE | 2019-06-28 14:41 | NUR ---
SELENA STARTED AT THIS TIME.
[2019-06-28 16:53] VITALS: BP 118/64
[2019-06-28 20:00] VITALS: BP 160/62
--- NOTE | 2019-06-28 22:32 | NUR ---
PT LYING IN BED WITH EYES CLOSED. NO SIGNS OR SYMPTOMS OF DISTRESS NOTED. RESPIRATIONS EVEN AND UNLABORED. PT STATED LAST BOWELL MOVEMENT WAS 06/28/19. PT FINISHED GOLYTELY @2130. IV LEFT FOREARM SALINE LOCKED. DRESSING CLEAN DRY AND INTACT. UP AID COREY. ALERT AND ORIENTED x4. ROOM AIR. NO COMPLAINTS OF PAIN AT THIS TIME. CALL LIGHT IS WITH IN REACH AND BED IS IN LOWEST POSITION. PT ENCOURAGED TO CALL FOR HELP WHEN GETTING IN AND OUT OF BED. WILL CONTINUE TO OBSERVE.
[2019-06-29] VITALS (10 sets, daily range): BP systolic 122–192; BP diastolic 50–88
--- NOTE | 2019-06-29 01:12 | NUR ---
I have reviewed this patient and I concur with the Shift Assessment completed by the Licensed Practical Nurse today this shift.
--- NOTE | 2019-06-29 07:01 | NUR ---
CONSENTS SIGNED AND CHARTED
--- NOTE | 2019-06-29 07:33 | NUR ---
PT STATES SHE FINISHED GO LYTELY LAST NIGHT. EKG DONE AND COLONOSCOPY CONSENTS SIGNED THIS AM. EGD CONSENTS SIGNED YESTERDAY.
--- NOTE | 2019-06-29 08:06 | NUR ---
PT WANTING TO KNOW WHAT TIME EGD AND COLONOSCOPY WILL BE. CALLED [facility] AND THEY STATE SINCE DR. GIVENS WILL BE DOING IT IT WILL BE WHEN HE CAN GET TO IT BECAUSE HE WILL ALSO BE IN SX TODAY. THEY ALSO STATED THEY HAVE THREE CASES LINED UP BEFORE PT WOULD EVEN BE ABLE TO GO. I VERBALIZED UNDERSTANDING. STATED THIS TO PT AND TOLD HER IF I FIND ANYTHING OUT I WILL LET HER KNOW. PT VERBALIZED UNDERSTANDING.
--- NOTE | 2019-06-29 10:49 | NUR ---
I have reviewed this patient and I concur with the Shift Assessment completed by the Licensed Practical Nurse today this shift.
--- NOTE | 2019-06-29 14:35 | NUR ---
SPOKE WITH GI LAB THEY STATED DR. GIVENS JUST STARTED A CASE AND THAT WILL TAKE AT LEAST TWO HOURS. SO PT WON'T GO UNTIL ANOTHER TWO HOURS. I VERBALIZED UNDERSTANDING. STATED THIS TO PT AND SHE VERBALIZED UNDERSTANDING.
--- NOTE | 2019-06-29 15:34 | NUR ---
pt taken to gi lab for procedure.
--- NOTE | 2019-06-29 16:16 | NUR ---
1615 ARGON LASER WITHOUT PROBLEMS.
--- NOTE | 2019-06-29 16:47 | NUR ---
PT ARRIVED BACK TO ROOM VIA BED. ALERT AND ORIENTED. ON ROOM AIR. DAUGHTER AT BEDSIDE. BP 192/88 HR 66 TEMP 97.[address] PEREZ OFFICE AND LEFT MESSAGE WITH NURSE. AWAITING CALL BACK. PT ON FREQUENT VITALS. WILL COTNINUE TO MONITOR. BED LOW. CL IN REACH.
--- NOTE | 2019-06-29 17:07 | NUR ---
SPOEK WITH DR. WALLS'S NURSE SHE STATES HE SATTED TO RESTART NORVASC AND DID NOT WANT TO ORDER ANY PRN'S. I VERBALIZED UNDERSTANDING.
--- NOTE | 2019-06-29 17:19 | NUR ---
PT WANTING TO KNOW IF DR. WALLS IS GOING TO DISCHARGE HER SINCE SHE HAD THE EGD DONE. DR. WALLS NOT ON CALLED. DR. WESTBROOK PAGED.
--- NOTE | 2019-06-30 07:21 | NUR ---
UP IN CHAIR AT BEDSIDE. DENIES ANY NEEDS AT PRESENT TIME AND IS LOOKING FORWARD TO DISCHARGE TODAY. NO REQUESTS VOICED.
[2019-06-30 09:03] VITALS: BP 130/61
[2019-06-30 13:27] VITALS: BP 137/64
--- NOTE | 2019-06-30 13:31 | MORECARE ---
CASE MANAGEMENT DISCHARGE SUMMARY PATIENT: ANETTE LEWIS UNIT: [id number] ADM DATE: 06/28/19 AGE: 63 : 59 SEX: F ROOM/BED: D.2101 AUTHOR: ADILSON DUMONT PHYSICIAN: REFERRING PHYSICIAN: RICARDO WALLS MD DATE OF SERVICE: 06/30/19 Discharge Plan Patient Name: ANETTE LEWIS Facility: [facility]:[place] : 1955 Planned Disposition: Anticipated Discharge Date: Discharge Date: Expected LOS: Initial Reviewer: [email or web address] Initial Review Date: 06/27/2019 Generated: 06/30/19 2:31 pm Comments DCP- Discharge Planning Updated by [email or web address]: Ev Delgado on 06/30/19 12:[address] Patient Name: ANETTE LEWIS Admission Status: Elective Accout number: [id number] Admission Date: 06-28-2019 : 1955 Admission Diagnosis: Attending: RICARDO WALLS Current LOS: 2 Anticipated DC Date: Planned Disposition: Primary Insurance: MEDICAID [place] Discharge Planning Comments: CM met with patient to complete initial dc planning assessment. CM educated patient on the CM role and verbal consent given by patient to complete assessment. CM verified patient's address, phone number, and emergency contact phone numbers. Patient lives at home with daughter. At discharge patient plans to return home and feels this is a safe discharge. CM discussed availability of home health, rehab services, and medical equipment. Patient denied known discharge needs at this time. Transportation provider at discharge will be her daughter (Estella). CM will continue to follow and will assist as needed with dc plans/needs. Liquor Tester: Ev Delgado MSN,RN CM DCPIA - Discharge Planning Initial Assessment Updated by [email or web address]: Ev Delgado on 06/30/19 1:26 pm * Is the patient Alert and Oriented? Yes * How many steps to enter\exit or inside your home? 2/0 * PCP Adrian * Pharmacy [facility] * Preadmission Environment Home with Family * ADLs Independent * Equipment None * List name and contact numbers for known caregivers / representatives who currently or will assist patient after discharge: Estella (daughter) [phone] * Verbal permission to speak to the caregivers and representatives has been obtained from the patient. Yes * Community resources currently utilized None * Additional services required to return to the preadmission environment? No * Can the patient safely return to the preadmission environment? Yes * Has this patient been hospitalized within the prior 30 days at any hospital? No Patient Name: ANETTE LEWIS Page 49830 at 1331 All edits/amendments must be made on the electronic document DICTATION DATE: 06/30/191330 SIFTING OPERATOR: TITI 06/30/191330 RPT#: [id number] DC DATE: STATUS: ADM IN [facility] [address] [place] [address] END OF REPORT
[2019-06-30] MEDS ORDERED: CARAFATE1 G PO (13:32)
--- NOTE | 2019-06-30 14:18 | NUR ---
DISCHARGE INSTRUCTIONS REVIEWED WITH PT AND HER DAUGHTER. BOTH VERBALIZE UNDERSTANDING WITH NO QUESTIONS. SL REMOVED FROM LEFT FA WITHOUT DIFFICULTY. PT LEFT FLOOR VIA W/C WITH ALL PERSONAL BELONGINGS AND LEFT FACILITY VIA PRIVATE VEHICLE WITH DAUGHTER.
--- NOTE | 2019-06-30 16:30 | OP ---
PATIENT NAME: ANETTE LEWIS MEDICAL RECORD: [id number] :59 LOCATION:D.M2 D.2101 ADMISSION DATE:06/28/19 SURGEON: SAAD GIVENS MD DATE OF OPERATION: 06/29/2019 PREOPERATIVE DIAGNOSES: 1. Acute blood loss anemia. 2. History of gastric antral vascular ectasias, which have bled in the past. 3. Melena. 4. Upper gastrointestinal bleeding. POSTOPERATIVE DIAGNOSES: 1. Acute blood loss anemia. 2. History of gastric antral vascular ectasias, which have bled in the past. 3. Melena. 4. Upper gastrointestinal bleeding. PROCEDURES: Esophagogastroduodenoscopy without biopsies. Argon plasma coagulation therapy to bleeding areas within the stomach including some gastric antral vascular ectasias. SURGEON: Saad Givens MD HARDWARE INSTALLER: None. BLOOD LOSS: Minimal. ANESTHESIA: IV sedation. COMPLICATIONS: None. The risks, possible complications and alternatives to the procedure were explained to the patient. She elects to proceed. ENDOSCOPIC COURSE: The patient was conveyed to endoscopy suite electively on 06/29/2019. IV sedation was induced by the anesthesia staff. A bite block was inserted. A gastroscope was inserted into the mouth. It was advanced easily into the hypopharynx. The esophagus was easily intubated as were the stomach and duodenum. I was actually able to advance the gastroscope all the way into the jejunum. The patient was found to have a large hiatal hernia on retroflexion in the stomach. There were lots of flecks of melenic appearing areas that would wash off when irrigated. These were consistent with multiple areas that have been bleeding. The patient had moderate antral gastritis. Most of the bleeding areas, however, were in the fundus and cardia. Some of these were gastric antral vascular ectasias but most of them were shallow ulcers. I utilized the argon plasma coagulation to cauterize the bleeding areas utilizing the esophageal setting in the forced mode. I noted no further bleeding. The endoscope was then withdrawn under direct vision. TRANSINT:[id number] Voice Confirmation ID: [id number] DOCUMENT ID: [id number] OPERATIVE REPORT [id number] JOSHUAANETTESAAD CRENSHAW MD at 1630 CC: RICARDO WALLS MD [id number] DICTATION DATE: 06/29/192046 MOTHER REPAIRER: 06/30/19 0634 DIS IN 06/30/19 [facility] [address] [place], [facility]
--- NOTE | 2019-07-01 08:19 | MORECARE ---
CASE MANAGEMENT DISCHARGE SUMMARY PATIENT: ANETTE LEWIS UNIT: [id number] ADM DATE: 06/28/19 AGE: 63 : 59 SEX: F ROOM/BED: D.2103 AUTHOR: ADILSON DUMONT PHYSICIAN: REFERRING PHYSICIAN: RICARDO WALLS MD DATE OF SERVICE: 07/01/19 Discharge Plan Patient Name: ANETTE LEWIS Facility: [facility]:[place] : 1955 Planned Disposition: Home Anticipated Discharge Date: 06/30/19 Discharge Date: 06/30/2019 Expected LOS: 2 Initial Reviewer: [email or web address] Initial Review Date: 06/27/2019 Generated: 07/01/19 9:19 am Comments DCP- Discharge Planning Updated by [email or web address]: Ev Delgado on 06/30/19 12:[address] Patient Name: ANETTE LEWIS Admission Status: Elective Accout number: [id number] Admission Date: 06-28-2019 : 1955 Admission Diagnosis: Attending: RICARDO WALLS Current LOS: 2 Anticipated DC Date: Planned Disposition: Primary Insurance: MEDICAID [place] Discharge Planning Comments: CM met with patient to complete initial dc planning assessment. CM educated patient on the CM role and verbal consent given by patient to complete assessment. CM verified patient's address, phone number, and emergency contact phone numbers. Patient lives at home with daughter. At discharge patient plans to return home and feels this is a safe discharge. CM discussed availability of home health, rehab services, and medical equipment. Patient denied known discharge needs at this time. Transportation provider at discharge will be her daughter (Estella). CM will continue to follow and will assist as needed with dc plans/needs. Bottom Sprayer: Ev Delgado MSN,RN CM DCPIA - Discharge Planning Initial Assessment Updated by [email or web address]: Ev Delgado on 06/30/19 1:26 pm * Is the patient Alert and Oriented? Yes * How many steps to enter\exit or inside your home? 2/0 * PCP Adrian * Pharmacy [facility] * Preadmission Environment Home with Family * ADLs Independent * Equipment None * List name and contact numbers for known caregivers / representatives who currently or will assist patient after discharge: Estella (daughter) [phone] * Verbal permission to speak to the caregivers and representatives has been obtained from the patient. Yes * Community resources currently utilized None * Additional services required to return to the preadmission environment? No * Can the patient safely return to the preadmission environment? Yes * Has this patient been hospitalized within the prior 30 days at any hospital? No Last DP export: 06/30/19 12:32 p Patient Name: ANETTE LEWIS Page [id number] at 0819 All edits/amendments must be made on the electronic document DICTATION DATE: 07/01/19818 CUT ORDER HAND: TITI 07/01/19818 RPT#: [id number] DC DATE:06/30/19 STATUS: DIS IN [facility] [address] [place] [address] END OF REPORT
--- NOTE | 2019-07-01 08:26 | MORECARE ---
CASE MANAGEMENT DISCHARGE SUMMARY PATIENT: ANETTE LEWIS UNIT: [id number] ADM DATE: 06/28/19 AGE: 63 : 59 SEX: F ROOM/BED: D.2102 AUTHOR: ADILSON DUMONT PHYSICIAN: REFERRING PHYSICIAN: RICARDO WALLS MD DATE OF SERVICE: 07/01/19 Discharge Plan Patient Name: ANETTE LEWIS Facility: [facility]:[place] : 1955 Planned Disposition: Home Anticipated Discharge Date: 06/30/19 Discharge Date: 06/30/2019 Expected LOS: 2 Initial Reviewer: [email or web address] Initial Review Date: 06/27/2019 Generated: 07/01/19 9:26 am Comments DCP- Discharge Planning Updated by [email or web address]: Ev Delgado on 06/30/19 12:[address] Patient Name: ANETTE LEWIS Admission Status: Elective Accout number: [id number] Admission Date: 06-28-2019 : 1955 Admission Diagnosis: Attending: RICARDO WALLS Current LOS: 2 Anticipated DC Date: Planned Disposition: Primary Insurance: MEDICAID [place] Discharge Planning Comments: CM met with patient to complete initial dc planning assessment. CM educated patient on the CM role and verbal consent given by patient to complete assessment. CM verified patient's address, phone number, and emergency contact phone numbers. Patient lives at home with daughter. At discharge patient plans to return home and feels this is a safe discharge. CM discussed availability of home health, rehab services, and medical equipment. Patient denied known discharge needs at this time. Transportation provider at discharge will be her daughter (Estella). CM will continue to follow and will assist as needed with dc plans/needs. Psychic Reader: Ev Delgado MSN,RN CM DCPIA - Discharge Planning Initial Assessment Updated by [email or web address]: Ev Delgado on 06/30/19 1:26 pm * Is the patient Alert and Oriented? Yes * How many steps to enter\exit or inside your home? 2/0 * PCP Adrian * Pharmacy [facility] * Preadmission Environment Home with Family * ADLs Independent * Equipment None * List name and contact numbers for known caregivers / representatives who currently or will assist patient after discharge: Estella (daughter) [phone] * Verbal permission to speak to the caregivers and representatives has been obtained from the patient. Yes * Community resources currently utilized None * Additional services required to return to the preadmission environment? No * Can the patient safely return to the preadmission environment? Yes * Has this patient been hospitalized within the prior 30 days at any hospital? No Last DP export: 06/30/19 12:32 p Patient Name: ANETTE LEWIS Page 28750 at 0826 All edits/amendments must be made on the electronic document DICTATION DATE: 07/01/19825 HANDY MAN: TITI 07/01/19825 RPT#: [id number] DC DATE:06/30/19 STATUS: DIS IN [facility] [address] [place] [address] END OF REPORT
== END 2019-06-30 14:19 | disposition home or self-care (01) | DRG 378 ==
LOC: D.M2 12:55 → OBSVTIME 12:57 → D.M2 06-28 17:51
PROVIDERS: Surgery; ADMIT Family Medicine; ATTEND Family Medicine
PROC: 0W3P8ZZ Control Bleeding in Gastrointestinal Tract, Via Natural or Artificial Opening Endoscopic (ICD-10-PCS; principal; 2019-06-29 15:30)
DX: K31.811 Angiodysplasia of stomach and duodenum with bleeding (principal); D62 Acute posthemorrhagic anemia; I25.10 Atherosclerotic heart disease of native coronary artery without angina pectoris; I10 Essential (primary) hypertension; K21.9 Gastro-esophageal reflux disease without esophagitis; E03.9 Hypothyroidism, unspecified; F41.8 Other specified anxiety disorders; J44.9 Chronic obstructive pulmonary disease, unspecified

== ENCOUNTER 2019-07-28 13:14 | Inpatient (IN) | payer MEDICAID ==
[~2019-07-28] VITALS: Ht 167.6 cm; Wt 52.6 kg
[2019-07-28] VITALS (7 sets, daily range): BP systolic 122–158; BP diastolic 46–75; BMI 18.7
[~2019-07-28 13:14] MED LIST changes: +PERCOCET 10-321 EAC1 PO
[2019-07-29] VITALS: BP 140/67
[2019-07-29 04:00] VITALS: BP 116/79
[2019-07-29 06:04] LABS: HEMATOCRIT 29.2 % (36.0-48.0); HEMOGLOBIN 8.8 g/dL (12-16); MCH 21.9 pg (26.0-34.0); MCHC 30.1 g/dL (31.0-37.0); MCV 72.8 fL (80.0-100.0); MEAN PLATELET VOLUME 10.7 fL (7.4-10.4); PLATELET COUNT 228 10x3/uL (130-400); RBC 4.01 10x6/uL (4.00-5.40); WBC 4.4 10x3/uL (4.8-10.8)
[2019-07-29 06:22] LABS: EOSINOPHILS 4 % (0-7); LYMPHOCYTES 21 % (15-50); MONOCYTES 5 % (2-11); NEUTROPHILS 70 % (40-80); PLATELET ESTIMATE NORMAL; ROULEAUX OCC; TARGET CELLS OCC
[2019-07-29 06:23] LABS: ELLIPTOCYTES OCC
[2019-07-29 06:31] LABS: ALBUMIN 3.1 g/dL (3.4-5.0); ANION GAP 14.8 mmol/L (8-16); BILIRUBIN - TOTAL 0.35 mg/dL (0.2-1.3); CALCIUM 8.3 mg/dL (8.5-10.1); CARBON DIOXIDE 24.5 mmol/L (21.0-32.0); POTASSIUM - SERUM 4.3 mmol/L (3.5-5.1); PROTEIN - SERUM 5.6 g/dL (6.4-8.2)
[2019-07-29 06:34] LABS: % SATURATION 3 % (15-55); IRON 14 ug/dl (35-150); TOTAL IRON BIND CAPACITY 392 ug/dl (260-445); UNSAT IRON BIND CAPACITY 378 ug/dl (150-375)
[2019-07-29 09:30] VITALS: BP 176/70
[2019-07-29 10:44] VITALS: Ht 167.6 cm; Wt 52.6 kg
[2019-07-29 13:50] VITALS: BP 136/53
--- NOTE | 2019-07-29 13:58 | HP ---
PATIENT: ANETTE LEWIS MEDICAL RECORD: [id number] ACCOUNT: [id number] LOCATION:D.[address] : [birth year] ADMISSION DATE: 07/28/19 PCP: RICARDO WALLS MD HISTORY AND PHYSICAL EXAMINATION DATE OF ADMISSION: 07/28/2019 ADMISSION DIAGNOSIS: Symptomatic anemia. HISTORY OF PRESENT ILLNESS: A 63-year-old female with recurrent anemia, brought in to my office today for weakness. It was like she is anemia. She does not report any blood per rectum, no melena. She was just in the hospital late last month for similar problems. Dr. Guallpa at that time did an EGD without biopsies. He performed argon plasma coagulation therapy to bleeding areas including some gastric antral vascular ectasias. In my office, her hemoglobin today was 5.7. She is directly admitted for transfusion. PAST MEDICAL HISTORY: Coronary artery disease, hypertension, history of myocardial infarction, gastroesophageal reflux, non-Hodgkin's lymphoma, hypothyroidism, anxiety, depression, chronic back and neck pain, iron deficiency anemia and has been followed by Dr. Jeffery in the past, COPD and pulmonary hamartoma. PAST SURGICAL HISTORY: Hysterectomy, coronary artery bypass graft, coronary stents, open laparotomy in 2007 with lysis of adhesions, duodenotomy with oversewing of duodenal ulcer. She has had left thoracotomy with resection of left upper lobe tumor abutting the mediastinum. She has had a tonsillectomy. HOME MEDICATIONS: Levothyroxine 150 mcg once a day, Percocet 10 three times a day, lisinopril 20 once a day, amlodipine 10 once a day, trazodone 50 one at bedtime, lorazepam 0.5 mg b.i.d. p.r.n. anxiety, gabapentin 600 mg 3 times a day, Paxil 40 mg once a day, pantoprazole 40 mg once a day, Carafate a.c. and at bedtime. ALLERGIES: BACTRIM AND PRAVASTATIN. HABITS: She continues to smoke cigarettes. No alcohol or drugs. SOCIAL HISTORY: She is recently . She is on disability due to her medical problems. FAMILY HISTORY: Father at 50 of an [place]. Mother is alive and well. REVIEW OF SYSTEMS: GENERAL: No major weight changes. HEENT: No sinus or allergy problems. RESPIRATORY: No known diagnosis of COPD, though she is a long time smoker. GASTROINTESTINAL: A history of reflux, history of ulcer, status post surgery. She has had history of gastric lymphoma treated by Dr. Jeffery. She has had the gastric ectasias treated multiple times by Dr. Guallpa with argon laser. GENITOURINARY: No significant problems there. MUSCULOSKELETAL: Has chronic back and neck pains. NEUROLOGIC: No migraines. No seizures. PSYCHIATRIC: She has anxiety and depression. HISTORY AND PHYSICAL [id number] ANETTE LEWIS PHYSICAL EXAMINATION: GENERAL: Today, she is weak. She is in a wheelchair. VITAL SIGNS: Temperature 98.1, pulse 64, respirations 16, blood pressure 136/46. HEENT: Grossly within normal limits. NECK: Supple. No JVD or bruit. HEART: Regular rate and rhythm. LUNGS: Fairly clear. ABDOMEN: Soft, flat, nontender. EXTREMITIES: No edema. LABORATORY DATA: Hemoglobin in my office today was 5.7, hematocrit 19.9, MCV is 70. She had a urinalysis done that was normal as well. ASSESSMENT: 1. Symptomatic anemia. 2. Iron deficiency anemia 3. History of gastric ectasias. PLAN: We will admit, transfuse 2 units packed red blood cells. We will check iron, TIBC, reticulocyte count. Hemoccult stools. She may have no bleeding from our ectasias right now. This may be just low on iron and needs more iron at this time. We will follow up labs. Further recommendations as warranted. TRANSINT:[id number] Voice Confirmation ID: [id number] DOCUMENT ID: [id number] RICARDO WALLS MD at 1358 CC: [id number] DICTATION DATE: 07/29/19 0046 STORE CLERK CASHIER: 07/29/[address] [facility] [address] [place] [address]
[2019-07-29 17:37] VITALS: BP 147/63
== END 2019-07-29 19:24 | disposition home or self-care (01) | DRG 812 ==
LOC: D.MS 13:14 → OBSVTIME 13:14 → D.MS 14:29
PROVIDERS: ADMIT Family Medicine; ATTEND Family Medicine
DX: D50.9 Iron deficiency anemia, unspecified (principal); I25.10 Atherosclerotic heart disease of native coronary artery without angina pectoris; I10 Essential (primary) hypertension; K21.9 Gastro-esophageal reflux disease without esophagitis; E03.9 Hypothyroidism, unspecified; J44.9 Chronic obstructive pulmonary disease, unspecified

== ENCOUNTER 2019-08-08 12:44 | Outpatient (CLI) | payer MEDICAID ==
[~2019-08-08] VITALS: Ht 167.6 cm; Wt 53.6 kg
[2019-08-08 13:29] VITALS: BP 162/76; Ht 167.6 cm; Wt 53.6 kg
--- NOTE | 2019-08-08 17:22 | NUR ---
171 PT STATED SHE HAS A HARD TIME CATCHING HER BREATH, DENIES CHEST PAINS. BLOOD STOPPED AND NS INFUSING AT 50 ML PER HOUR/ O2 SAT 90% B/P 201/82 HR 71. PT ON RA. 171 DR WALLS CALLED AND DR SCOTT PUBLIC WORKS INSPECTOR. 1725 PT ON O2 2 LITERS NC CALLED AND ORDERS GIVEN
--- NOTE | 2019-08-08 17:43 | NUR ---
[address] GARCIA ORDERS. B/P PRIOR TO MEDICATION 172/71 O2 SAT 94% 1745 ASSISTED TO BATHROOM. B/P 196/84 HR 68. BLOOD INFUSING AT 75/HR
--- NOTE | 2019-08-08 18:21 | NUR ---
1820 ASSISTED TO BATHROOM AND LESS SOB. B/P 176/74 HR68 O2 SAT 94 ON 2 LITERS NC. PT VOIDED X2
--- NOTE | 2019-08-08 18:48 | NUR ---
1845 VOIDED X4 LARGE AMT
--- NOTE | 2019-08-08 19:19 | NUR ---
DR SCOTT CALLED WITH B/P 181/75 HR 60. BLOOD INFUSED AND PT LESS SOB. O2 SAT 91-90. ORDERS GIVEN AND NOTED
--- NOTE | 2019-08-08 19:27 | NUR ---
1924 MEDICATED FOR B/P PER DR WESTBROOK. WILL MONITOR AND DISCHARGE HOME
--- NOTE | 2019-08-08 20:11 | NUR ---
2004 IV REMOVED AND PT W/C TO CAR. STATED SHE IS BREATHING BETTER AND VOIDED 6X OF URINE. B/P REMAIN 170/74 HR 64
== END 2019-08-08 20:12 | disposition home or self-care (01) ==
LOC: D.OPS 12:44
PROVIDERS: ATTEND Family Medicine
DX: D50.9 Iron deficiency anemia, unspecified (principal)

== ENCOUNTER 2019-09-29 20:51 | Inpatient (IN) | payer MEDICARE, MEDICAID ==
[~2019-09-29] VITALS: Ht 167.6 cm; Wt 44.5 kg
--- NOTE | ~2019-09-29 | HEMODYNAMI ---
PATIENT:ANETTE LEWIS MEDICAL RECORD: [id number] : 59 LOCATION:D.MS Page2208 ADMISSION DATE: 09/29/19 Generatedon:10/06/201910:29 Patient name: ANETTE LEWIS Patient #: [id number] SSN: : 1955 Date of study: 10/06/2019 Page: Of Hemodynamic Procedure Report Patient Data Patient Demographics Procedure consent was obtained First Name: ANETTE Gender: Female Last Name: JOSHUA : 1955 Middle Initial: RETA Age: 63 year(s) Patient #: [id number] Race: Additional ID: [id number] Contact details Address: [address] [place] [address] State: [place] City: [place] Zip code: [address] Past Medical History History of disease Date Diagnosis Comments CAD Allergies Allergen Reaction Date Comments Reported Statins 03/23/2015 Other allergy 10/01/2018 Bactrim, Statins Other allergy 10/06/2019 bactrim, pravostatin Admission Admission Data Admission Date: 09/29/2019 Admission Time: 22:13 Room #: [id number].2208 Height (in.): 65.75 BSA: 1.57 (m2) Height (cm.): 167 BMI: 18.65 (kg/m2) Weight (lbs.): 114.64 Weight (kg.): 52 Procedure Procedure Types Cath Procedure Peripheral Cath Diagnostic Procedure Nephro Nephrostogram Thru Existing Procedure Description Procedure Date Procedure Date: 10/06/2019 Procedure Start Time: 9:41 Procedure Staff Name Function Juarez Potts RT Shamikaub Sander Trevizo MD Performing Physician Ermelinda Lopez RN Nurse MIKAEL CEJA RT Sheet Metal Journeyman Procedure Data Cath Procedure Fluoroscopy Diagnostic fluoroscopy Total fluoroscopy Time: 1.2 time: 1.2 min min Diagnostic fluoroscopy Total fluoroscopy dose: 6 dose: 6 mGy mGy Contrast Material Contrast Material Type Amount (ml) Isovue 300 15 Procedure Medications Medication Administration Route Dosage Ancef (1Gm/50ml NS) I.V.P.B 1 g Heparin Flush Bag added to field 1 bags (1000units/500ml NS) Lidocaine 1% added to field 20 Hemodynamics Rest BSA: 1.57 (m2) O2 Consumption: Estimated: 142.87 (ml/min) O2 Consumption indexed : Estimated:91 (ml/min/m) Heart Rate: 61 (bpm) Snapshots Pre Cath Intra NCS Post Cath Vital Signs Time Heart Resp SPO2 etCO2 NIBP (mmHg) Rhythm Pain Sedation Rate (ipm) (%) (mmHg) Status Level (bpm) 10:04:48 67 12 100 35.5 169/70(119) NSR 0 (11) 10(A) , No pain 10:09:10 58 12 100 38.5 165/68(117) NSR 0 (11) 10(A) , No pain 10:13:32 57 13 100 37 159/71(124) NSR 0 (11) 10(A) , No pain 10:17:54 58 10 100 39.3 157/67(119) NSR 0 (11) 10(A) , No pain 10:22:16 59 11 38.5 159/64(121) NSR 0 (11) 10(A) , No pain Medications Time Medication Route Dose Verified Delivered Reason Notes Effe ctiveness by by 10:03:40 Ancef (1Gm/50ml I.V.P.B 1 g M J Long Ermelinda used for NS) MD Lopez bias cutter helper 10:04:01 Heparin Flush added 1 M J Long M J Long used for Bag to bags MD PEDERSEN procedure (1000units/500ml field NS) 10:04:31 Lidocaine 1% added 20ml M J Long M J Long used for to vial MD PEDERSEN procedure field Procedure Log Time Note 9:42:50 MIKAEL CEJA RT (R) sent for patient. Start room use. 9:42:52 Time tracking: Regular hours (M-F 7:00 - 5:00) 9:42:56 Patient Weight : 114.64 lbs 9:42:56 Patient Height : 65.75 inches 9:43:01 Plan of Care:Hemodynamics will remain stable., Cardiac rhythm will remain stable., Comfort level will be maintained., Respiratory function will remain adequate., Patient/ family verbilizes understanding of procedure., Procedure tolerated without complication., Recovers from procedure without complications.. 9:43:07 Patient received from Med/Surg to IR Alert and oriented. Tansferred to table in Prone position. 9:43:09 Signed procedure consent form obtained from patient. 9:43:10 Correct patient and procedure confirmed by team. 9:43:10 Warm blankets applied, and maurilio hugger turned on for patient comfort. 9:43:11 ECG and BP/O2 sat monitors applied to patient. 9:43:12 - 9:43:20 H&P Date Dictated: 10/06/2019 Within 30 days and on chart.. 9:43:21 Pre-procedure instructions explained to patient. 9:43:22 Pre-op teaching completed and patient verbalized understanding. 9:43:24 Patient NPO since Midnight. 9:43:42 Patient allergic to Other allergybactrim, pravostatin 9:43:47 Is patient on blood thinner?No 9:43:49 If diabetic: On Metformin? No 9:43:51 - 9:43:52 ----Pre-sedation anethsthesia assessment.---- 9:43:56 Previous problem with sedation/anesthesia? No ? 9:43:58 Snore? No 9:44:01 Sleep apnea? No 9:44:02 Deviated septum? No 9:44:04 Opens mouth fully? Yes 9:44:05 Sticks out tongue? Yes 9:44:08 Airway obstruction? No ? 9:44:10 Dentures? yes 9:44:11 - 9:44:25 IV patent on arrival in right wrist with 0.9% NaCl at KVO. 9:44:32 Left Renal was prepped with chlora-prep and draped in sterile fashion. :33 Sharps counted by scrub and verified by RadhaNHebert :33 Alarms reviewed by Radha Miller 9:44:34 - 10:03:33 Vital chart was started 10:03:40 Ancef (1Gm/50ml NS) 1 g I.V.P.B was administered by Ermelinda Lopez RN; used for procedure; Verbal order read back and verified. 10:03:42 Baseline sample Acquired. 10:04:01 Heparin Flush Bag (1000units/500ml NS) 1 bags added to field was administered by Sander Trevizo MD; used for procedure; Verbal order read back and verified. 10:04:31 Lidocaine 1% 20ml vial added to field was administered by Sander Trevizo MD; used for procedure; Verbal order read back and verified. 10:09:40 --------ALL STOP TIME OUT------ 10:09:40 Physician arrived 10:09:41 Final Timeout: patient, procedure, and site verified with staff and physician. All members of the team are in agreement. 10:09:49 Lumbar site verified by team. 10:09:54 3b) 30-44 Moderately reduced kidney function. 10:09:59 Fire Safety Assessment: A--An alcohol-based skin anteseptic being used preoperatively., C--Open oxygen or nitrous oxide is being used. 10:10:27 Maximum allowable contrast dose (3.7 X eGFR X 0.75)94.35 ml. 10:10:33 Sedation plan: IV Moderate Sedation Medication:Versed, Fentanyl 10:19:06 BAG, DRAINAGE EMPTY 600ML W/EVA (ENE558) opened to sterile field. 10:20:49 Procedure ended.(Physican Out) 10:22:27 Fluoroscopy time 01.20 minutes. 10:22:42 Contrast amount:Isovue 300 15ml. 10:22:50 Post-op/insertion site Left Abdominal area dressed using a 4 x 4 and Tegaderm. 10:23:12 Post Lumbar area:stable 10:24:31 Use device set IR Diagnostic 10:24:32 Bag Decanter (2001S) opened to sterile field. 10:24:33 Tegaderm 4 x 4 (1626W) opened to sterile field. 10:24:33 Sterile Angiographic Pack opened to sterile field. 10:25:29 Report given to Med/Surg. 10:25:32 Patient transfered to Med/Surg with Bed. 10:26:08 Vital chart was stopped 10:28:55 Flurop Dose total: 6 10:28:55 Fluoroscopy dose: 6 mGy Device Usage Item Name Manufacture Quantity Catalog Hospital Part Current Minimal Lot# / Number Charge Number Stock Stock Serial# Code BAG, Merit 1 [id number] 5 DRAINAGE Medical EMPTY 600ML W/EVA (PAI830) Bag Decanter Microtek 1 2001S 149198 [id number] 5 (2001S) Medical Inc. Sterile Cardinal [address] 063581 [id number] 5 Angiographic Health Pack Tegaderm 4 x 3M 1 1626W [id number] 806514 [id number] 5 4 (1626W) Signature Audit [place] Stage Time Signature Unsigned Intra-Procedure 10/06/2019 Juarez Potts RT 10:26:03 AM Katlyn RT (R) (CV) 10/06/2019 (R) (CV) 10:28:08 AM Intra-Procedure 10/06/2019 Juarez 10:29:27 AM Katlyn RT (R) (CV) [facility] [address] [place] [address]
--- NOTE | ~2019-09-29 | HEMODYNAMI ---
PATIENT:ANETTE LEWIS MEDICAL RECORD: [id number] : 59 LOCATION:KayleeCA Kaylee2208 ADMISSION DATE: 09/29/19 Generatedon:10/07/201914:36 Patient name: ANETTE LEWIS Patient #: [id number] SSN: : 1955 Date of study: 10/07/2019 Page: Of Hemodynamic Procedure Report Patient Data Patient Demographics Procedure consent was obtained First Name: ANETTE Gender: Female Last Name: JOSHUA : 1955 Middle Initial: RETA Age: 63 year(s) Patient #: [id number] Race: Additional ID: [id number] Contact details Address: [address] [place] [address] State: [place] City: [place] Zip code: [address] Past Medical History History of disease Date Diagnosis Comments CAD Allergies Allergen Reaction Date Comments Reported Statins 03/23/2015 Other allergy 10/01/2018 Bactrim, Statins Other allergy 10/06/2019 bactrim, pravostatin Other allergy 10/07/2019 bactrim/ previstatin Admission Admission Data Admission Date: 09/29/2019 Admission Time: 22:13 Room #: [facility] Height (in.): 65.75 BSA: 1.57 (m2) Height (cm.): 167 BMI: 18.65 (kg/m2) Weight (lbs.): 114.64 Weight (kg.): 52 Procedure Procedure Types Cath Procedure Peripheral Cath Diagnostic Procedure Nephro Nephrostogram Thru Existing Nephrostomy Tube Removal Procedure Description Procedure Date Procedure Date: 10/07/2019 Procedure Start Time: 11:35 Procedure Staff Name Function Guy Magdaleno MD Performing Physician MIKAEL CEJA RT Monitor Juarez Potts RT Scrub Ermelinda Lopez RN Nurse Simone [place] CRNA Additional personnel Procedure Data Cath Procedure Fluoroscopy Diagnostic fluoroscopy Total fluoroscopy Time: time: 30.9 min 30.9 min Contrast Material Contrast Material Type Amount (ml) Isovue 300 175 Diagnostic catheters Device Type Used For End Catheter Placement Angiodynamics SOS OMNI 2 NON B 5FR 65CM catheter ([id number]) Procedure Medications Medication Administration Route Dosage Heparin Flush Bag added to field 1 bags (1000units/500ml NS) Lidocaine 1% added to field 20 Fentanyl I.V. 25 mcg Versed I.V. 0.5 mg Versed I.V. 0.5 mg Fentanyl I.V. 25 mcg Fentanyl I.V. 25 mcg Versed I.V. 1 mg Fentanyl I.V. 25 mcg Versed I.V. 0.5 mg Versed I.V. 0.5 mg Fentanyl I.V. 25 mcg Fentanyl I.V. 25 mcg Versed I.V. 0.5 mg Fentanyl I.V. 25 mcg Versed I.V. 0.5 mg Hemodynamics Rest BSA: 1.57 (m2) O2 Consumption: Estimated: 140.34 (ml/min) O2 Consumption indexed : Estimated:89.39 (ml/min/m) Heart Rate: 56 (bpm) Snapshots Pre Cath Intra NCS Post Cath Vital Signs Time Heart Resp SPO2 etCO2 NIBP (mmHg) Rhythm Pain Sedation Rate (ipm) (%) (mmHg) Status Level (bpm) 11:17:02 55 9 100 33.7 139/65(117) NSR 0 (11) 10(A) , No pain 11:21:12 56 9 100 33.7 150/67(133) NSR 0 (11) 10(A) , No pain 11:25:26 57 15 35.2 145/67(133) NSR 0 (11) 10(A) , No pain 11:29:38 57 10 34.4 149/64(121) NSR 0 (11) 10(A) , No pain 11:33:50 57 10 34.4 143/70(116) NSR 0 (11) 10(A) , No pain 11:38:02 59 9 100 35.2 144/66(118) NSR 0 (11) 10(A) , No pain 11:42:09 60 9 100 35.2 150/76(128) NSR 0 (11) 8(A) , No pain 11:46:22 60 16 100 27.7 138/69(115) NSR 0 (11) 8(A) , No pain 11:50:29 62 11 100 23.9 145/73(109) NSR 0 (11) 8(A) , No pain 11:54:39 0 156/70(118) NSR 0 (11) 8(A) , No pain 11:59:38 100 32.9 Measuring NSR 0 (11) 8(A) , No pain 11:59:50 99 24.7 Disturbed NSR 0 (11) 8(A) , No pain 12:04:11 56 17 100 30.7 158/69(122) NSR 0 (11) 8(A) , No pain 12:08:27 52 7 100 34.5 149/72(120) NSR 0 (11) 8(A) , No pain 12:12:38 54 12 100 31.5 152/75(121) NSR 0 (11) 8(A) , No pain 12:16:55 55 9 100 32.2 155/67(120) NSR 0 (11) 8(A) , No pain 12:21:08 57 0 100 21 124/69(91) NSR 0 (11) 8(A) , No pain 12:25:12 57 6 97 30.7 128/65(101) NSR 0 (11) 8(A) , No pain 12:29:16 55 7 100 31.4 134/61(85) NSR 0 (11) 8(A) , No pain 12:33:24 54 6 99 33 135/66(98) NSR 0 (11) 8(A) , No pain 12:37:30 54 7 100 33.7 139/72(110) NSR 0 (11) 8(A) , No pain 12:41:35 54 8 100 36 152/73(115) NSR 0 (11) 8(A) , No pain 12:45:43 56 9 100 15.7 136/107(126) NSR 0 (11) 8(A) , No pain 12:50:42 56 8 100 0 Measuring NSR 0 (11) 8(A) , No pain 12:50:50 55 7 100 0 160/71(125) NSR 0 (11) 8(A) , No pain 12:55:11 72 13 100 30 133/64(114) NSR 0 (11) 8(A) , No pain 12:59:15 65 6 100 28.5 142/72(122) NSR 0 (11) 8(A) , No pain 13:04:14 64 12 100 36 Measuring NSR 0 (11) 8(A) , No pain 13:04:26 61 13 100 23.2 167/72(120) NSR 0 (11) 8(A) , No pain 13:08:44 60 10 100 21 142/69(108) NSR 0 (11) 8(A) , No pain 13:13:43 60 10 100 9.7 Measuring NSR 0 (11) 8(A) , No pain 13:13:57 61 12 100 21.7 161/74(126) NSR 0 (11) 8(A) , No pain 13:18:13 57 10 100 17.2 164/69(122) NSR 0 (11) 8(A) , No pain 13:22:27 64 10 100 27 169/80(130) NSR 0 (11) 8(A) , No pain 13:26:45 63 9 100 27.7 159/70(126) NSR 0 (11) 8(A) , No pain 13:30:59 61 10 26.2 161/75(128) NSR 0 (11) 8(A) , No pain 13:35:09 70 12 30.7 156/83(116) NSR 0 (11) 8(A) , No pain 13:39:25 62 9 25.5 161/66(116) NSR 0 (11) 8(A) , No pain 13:43:41 62 9 100 27 153/69(117) NSR 0 (11) 8(A) , No pain 13:47:55 63 11 29.2 139/72(121) NSR 0 (11) 8(A) , No pain 13:52:03 62 9 99 33 149/74(117) NSR 0 (11) 8(A) , No pain 13:57:02 60 8 35.3 Measuring NSR 0 (11) 8(A) , No pain 13:57:23 62 8 99 38.3 149/73(113) NSR 0 (11) 8(A) , No pain 14:01:34 62 10 24.7 143/70(104) NSR 0 (11) 8(A) , No pain 14:05:48 72 19 29.2 148/61(115) NSR 0 (11) 8(A) , No pain 14:10:00 57 9 26.2 151/74(118) NSR 0 (11) 8(A) , No pain 14:14:59 55 7 24.7 Measuring NSR 0 (11) 8(A) , No pain 14:15:24 57 9 26.2 159/72(128) NSR 0 (11) 8(A) , No pain 14:19:40 58 10 30.8 150/70(108) NSR 0 (11) 8(A) , No pain 14:23:40 33 No Cuff NSR 0 (11) 8(A) , No pain 14:27:39 36.8 No Cuff NSR 0 (11) 8(A) , No pain 14:31:39 0 No Cuff NSR 0 (11) 8(A) , No pain 14:35:39 0 No Cuff NSR 0 (11) 8(A) , No pain Medications Time Medication Route Dose Verified Delivered Reason Notes Effec tiveness by by 11:37:04 Heparin Flush added 1 Guy Tovar used for Bag to bags Rasta Magdaleno MD procedure (1000units/500ml field PEDERSEN NS) 11:37:18 Lidocaine 1% added 20ml Guy Tovar used for to vial Rasta Magdaleno MD procedure field PEDERSEN 11:40:34 Fentanyl I.V. 25 Guy Haleyi for mcg John Magdaleno RN sedation 11:40:45 Versed I.V. 0.5 Gyu Haleyi for mg John Magdaleno RN sedation 11:43:45 Versed I.V. 0.5 Guy Ermelinda for mg John Magdaleno RN sedation 11:43:52 Fentanyl I.V. 25 Guy Haleyi for mcg John Magdaleno RN sedation 11:49:14 Fentanyl I.V. 25 Guy Ermelinda for mcg John Magdaleno RN sedation 12:15:52 Versed I.V. 1 mg Guy Ermelinda for John Magdaleno RN sedation 12:16:03 Fentanyl I.V. 25 Guy Haleyi for mcg John Magdaleno RN sedation 12:26:00 Versed I.V. 0.5 Guy Ermelinda for mg John Magdaleno RN sedation 13:00:05 Versed I.V. 0.5 Guy Ermelinda for mg BurdJohn corea RN sedation 13:00:13 Fentanyl I.V. 25 Guy Wadsworth for mcg John Magdaleno RN sedation 13:06:39 Fentanyl I.V. 25 Guy Wadsworth for mcg John Magdaleno RN sedation 13:35:35 Versed I.V. 0.5 Guy Wadsworth for mg BurdJohn corea RN sedation 13:35:43 Fentanyl I.V. 25 Guy Wadsworth for mcg John Magdaleno RN sedation 14:01:24 Versed I.V. 0.5 Guy Haleyi for mg John Magdaleno RN sedation Procedure Log Time Note 11:00:11 Use device set IR Diagnostic 11:00:12 Bag Decanter (2002S) opened to sterile field. 11:00:13 Patient Weight : 114.64 lbs 11:00:13 Patient Height : 65.75 inches 11:00:17 Sterile Angiographic Pack opened to sterile field. 11:00:18 Tegaderm 4 x 4 (1626W) opened to sterile field. 11:11:33 [facility] RT (R) (CV) sent for patient. Start room use. 11:11:35 Time tracking: Regular hours (M-F 7:00 - 5:00) 11:11:40 Plan of Care:Hemodynamics will remain stable., Cardiac rhythm will remain stable., Comfort level will be maintained., Respiratory function will remain adequate., Patient/ family verbilizes understanding of procedure., Procedure tolerated without complication., Recovers from procedure without complications.. 11:11:50 Patient received from Med/Surg to IR Alert and oriented. Tansferred to table in Prone position. 11:11:51 Signed procedure consent form obtained from patient. 11:11:53 Warm blankets applied, and maurilio hugger turned on for patient comfort. 11:11:54 Correct patient and procedure confirmed by team. 11:11:57 ECG and BP/O2 sat monitors applied to patient. 11:12:02 H&P Date Dictated: 10/07/2019 Within 30 days and on chart.. 11:12:03 Pre-procedure instructions explained to patient. 11:12:04 Pre-op teaching completed and patient verbalized understanding. 11:12:06 Patient NPO since Midnight. 11:12:27 Patient allergic to Other allergybactrim/ previstatin 11:12:35 Is the patient allergic to Iodine/contrast media? No. 11:12:38 Patient diabetic? No. 11:12:39 - 11:12:41 ----Pre-sedation anethsthesia assessment.---- 11:12:43 Previous problem with sedation/anesthesia? No ? 11:12:44 Snore? Yes 11:12:46 Sleep apnea? No 11:12:47 Deviated septum? No 11:12:49 Opens mouth fully? Yes 11:12:51 Sticks out tongue? Yes 11:12:53 Airway obstruction? No ? 11:12:58 Dentures? Yes in tight 11:13:11 Left Renal was prepped with chlora-prep and draped in sterile fashion. 11:13:12 Alarms reviewed by Radha Miller 11:13:12 Sharps counted by scrub and verified by Dodie 11:13:14 - 11:15:53 Baseline sample Acquired. 11:15:53 Vital chart was started 11:15:55 Full Disclosure recording started 11:15:56 - 11:33:22 Physician arrived 11:33:39 --------ALL STOP TIME OUT------ 11:33:40 Final Timeout: patient, procedure, and site verified with staff and physician. All members of the team are in agreement. 11:34:48 Left renal site verified by team. 11:35:37 Procedure started. 11:37:04 Heparin Flush Bag (1000units/500ml NS) 1 bags added to field was administered by Guy Magdaleno MD; used for procedure; Verbal order read back and verified. 11:37:18 Lidocaine 1% 20ml vial added to field was administered by Gyu Magdaleno MD; used for procedure; Verbal order read back and verified. 11:38:18 BENTSON 145cm wire ([id number]) opened to sterile field. 11:40:34 Fentanyl 25 mcg I.V. was administered by Ermelinda Lopez RN; for sedation; Verbal order read back and verified. 11:40:41 Abscession 8Fr drainage catheter ([id number]) opened to sterile field. 11:40:45 Versed 0.5 mg I.V. was administered by Ermelinda Lopez RN; for sedation; Verbal order read back and verified. 11:41:04 STOPCOCK 3-Way Large Bore (L02619) opened to sterile field. 11:43:45 Versed 0.5 mg I.V. was administered by Ermelinda Lopez RN; for sedation; Verbal order read back and verified. 11:43:52 Fentanyl 25 mcg I.V. was administered by Ermelinda Lopez RN; for sedation; Verbal order read back and verified. 11:45:55 GLIDE WIRE .038 180cm ANGLED (AG6136) opened to sterile field. 11:45:56 GLIDE CATHETER 5FR ANGLED 65cm (CG507) opened to sterile field. 11:49:14 Fentanyl 25 mcg I.V. was administered by Ermelinda Lopez RN; for sedation; Verbal order read back and verified. 12:05:18 MICROPUNCTURE 4FR Cook (L60617) opened to sterile field. 12:05:19 DOC .035 wire (I67667) opened to sterile field. 12:15:29 SHEATH 5FR [place] (SBA010) opened to sterile field. 12:15:52 Versed 1 mg I.V. was administered by Ermelinda Lopez RN; for sedation; Verbal order read back and verified. 12:16:03 Fentanyl 25 mcg I.V. was administered by Ermelinda Lopez RN; for sedation; Verbal order read back and verified. 12:21:59 Angiodynamics Omniflush 5Fr 65cm (41230335) opened to sterile field. 12:22:09 AMPLATZ Super Stiff 75cm wire ([id number]) opened to sterile field. 12:26:00 Versed 0.5 mg I.V. was administered by Ermelinda Lopez RN; for sedation; Verbal order read back and verified. 12:26:40 GLIDE CATHETER 5FR COBRA 65cm (CG502) opened to sterile field. 12:29:15 A Angiodynamics SOS OMNI 2 NON B 5FR 65CM catheter ([id number]) was advanced over the wire. 12:29:29 TORQUE DEVICE PLASTIC .038 ( TD01) opened to sterile field. 13:00:05 Versed 0.5 mg I.V. was administered by Ermelinda Lopez RN; for sedation; Verbal order read back and verified. 13:00:13 Fentanyl 25 mcg I.V. was administered by Ermelinda Lopez RN; for sedation; Verbal order read back and verified. 13:06:39 Fentanyl 25 mcg I.V. was administered by Ermelinda Lopez RN; for sedation; Verbal order read back and verified. 13:24:56 GLIDE WIRE GT DOUBLE ANGLE .018 (RG*[id number]) opened to sterile field. 13:24:56 RENEGADE HI-DORA microcatheter ([id number]) opened to sterile field. 13:25:59 Abscession 8Fr drainage catheter (49874525) opened to sterile field. 13:30:25 TRANSEND .014 205cm wire ([id number]) opened to sterile field. 13:35:35 Versed 0.5 mg I.V. was administered by Ermelinda Lopez RN; for sedation; Verbal order read back and verified. 13:35:43 Fentanyl 25 mcg I.V. was administered by Ermelinda Lopez RN; for sedation; Verbal order read back and verified. 13:39:30 IDL Instant Powder Monkey (ID1) opened to sterile field. 13:39:31 COIL Concerto 3mm x 4cm ([id number]) opened to sterile field. 13:41:52 COIL Concerto 3mm x 8cm ([id number]) opened to sterile field. 13:44:59 COIL Concerto 4mm x 10cm ([id number]) opened to sterile field. 13:53:54 COIL Concerto 4mm x 10cm ([id number]) opened to sterile field. 14:00:15 GLIDE CATHETER 5FR ANGLED 65cm (CG507) opened to sterile field. 14:01:24 Versed 0.5 mg I.V. was administered by Ermelinda Lopez RN; for sedation; Verbal order read back and verified. 14:09:56 SUTURE ETHILON 2-0 BLK MONO FS opened to sterile field. 14:15:33 Procedure ended.(Physican Out) 14:16:16 Fluoroscopy time 30.90 minutes. 14:16:22 Dose Area Product 1433 mGy/cm. 14:16:33 Contrast amount:Isovue 300 175ml. 14:16:34 Sharps counted by scrub and verified by R.N. 14:16:37 Insertion/operative site no bleeding no hematoma. 14:16:53 Post Left Renal area:stable, clean and dry 14:17:54 Sheath was sutured into place and a sterile dressing applied 14:18:16 Post procedure instruction explained to patient.Patient verbalizes understanding. 14:18:17 Procedure and supply charges have been captured, reviewed, submitted an d are correct. 14:35:46 End room use (Document Last) 14:36:08 Vital chart was stopped Device Usage Item Name Manufacture Quantity Catalog Number Hospital Part Current M inimal Lot# / Charge Number Stock Stock Serial# Code Bag Decanter Microtek 1 [id number] 98025 434368 5 () Medical Inc. Sterile Cardinal 1 [id number] 384727 119491 5 Angiographic Health Pack Tegaderm 4 x 3M 1 1626W 365437 952344 374496 5 4 (1626W) BENTSON 145cm Cook Medical 1 A21617 701046 617730 5 wire (E56282) Abscession Angiodynamics 2 [id number] 025972 312416 156895 5 8Fr drainage catheter (99227438) STOPCOCK Cook Medical 1 P59410 558159 9113 256293 5 3-Way Large Bore (M32505) GLIDE Terumo 1 CG508 680923 58767 270919 4 CATHETER 5FR ANGLED 100cm (CG508) GLIDE WIRE Terumo 1 UJ6666 759206 173757 5 .038 180cm ANGLED (IO8848) GLIDE Terumo 2 CG507 775193 728202 5 CATHETER 5FR ANGLED 65cm (CG507) MICROPUNCTURE [employer] 1 S98655 164048 619260 095058 5 4FR IXcellerate (L65938) DOC .035 wire [place] Medical 1 R31571 174038 233931 5 (C86115) SHEATH 5FR Terumo 1 UMU733 075496 735585 391459 5 [place] (IQT455) Angiodynamics Angiodynamics 2 26757132 367411 56151 861695 5 SOS OMNI 2 NON B 5FR 65CM catheter (39174057) Angiodynamics Angiodynamics 1 41707674 437832 468016 885298 5 Omniflush 5Fr 65cm (10771380) AMPLATZ Super [place] 1 [id number] 836601 513063 620841 5 Stiff 75cm Scientific wire ([id number]) GLIDE Terumo 1 CG502 212602 197447 5 CATHETER 5FR COBRA 65cm (CG502) TORQUE DEVICE [place] 1 TD01 548075 729078 618351 5 PLASTIC .038 Scientific ( TD01) GLIDE WIRE GT Terumo 1 [id number]*YH1987SW 229452 114380 5 DOUBLE ANGLE .018 (RG*UP4807YS) RENEGADE [place] 1 [id number] 239401 953060 5 HI-DORA Scientific microcatheter ([id number]) TRANSEND .014 [place] 1 3432460-91 852263 829852 5 205cm wire Scientific ([id number]) IDL Instant B. Oneil 1 ID-1 [id number] 6660132 201185 5 [id number] Powder Monkey (ID1) COIL Concerto Medtronic 1 FL-6-3-HELIX 516005 746516 950861 5 3mm x 4cm (UW63EDTEO) COIL Concerto Medtronic 1 TS-2-4-HELIX 751331 721843 752360 5 3mm x 8cm (SH17ETBGY) COIL Concerto Medtronic 2 DK-4-91-HELIX 147241 343882 333166 5 4mm x 10cm ([id number]) SUTURE Ethicon 1 664H 804225 175940 5 ETHILON 2-0 BLK MONO FS Signature Audit [place] Stage Time Signature Unsigned Intra-Procedure 10/07/2019 MIKAEL CEJA RT 2:36:03 PM (R) [facility] [address] [place] [address]
--- NOTE | ~2019-09-29 | HEMODYNAMI ---
PATIENT:ANETTE LEWIS MEDICAL RECORD: [id number] : 59 LOCATION:[facility].2215 ADMISSION DATE: 09/29/19 Generatedon:10/04/201917:14 Patient name: ANETTE LEWIS Patient #: [id number] SSN: : 1955 Date of study: 10/04/2019 Page: Of Hemodynamic Procedure Report Patient Data Patient Demographics Procedure consent was obtained First Name: ANETTE Gender: Female Last Name: JOSHUA : 1955 Middle Initial: RETA Age: 63 year(s) Patient #: [id number] Race: Additional ID: [id number] Contact details [address]: [address] [place] [address] State: [place] City: [place] Zip code: [address] Past Medical History History of disease Date Diagnosis Comments CAD Allergies Allergen Reaction Date Comments Reported Statins 03/23/2015 Other allergy 10/01/2018 Bactrim, Statins Admission Admission Data Admission Date: 09/29/2019 Admission Time: 22:13 Room #: D.2215 Height (in.): 65.75 BSA: 1.57 (m2) Height (cm.): 167 BMI: 18.65 (kg/m2) Weight (lbs.): 114.64 Weight (kg.): 52 Procedure Procedure Types Cath Procedure Peripheral Cath Diagnostic Procedure Nephro Nephrostomy w/ Ureteral Stent Procedure Description Procedure Date Procedure Date: 10/04/2019 Procedure Start Time: 16:28 Procedure Staff Name Function Philip Che MD Performing Physician MIKAEL CEJA RT Monitor Juarez Potts RT Scrub Megan Daniels RN Nurse Devang Foote Jr, CRNA Additional personnel Procedure Data Cath Procedure Fluoroscopy Diagnostic fluoroscopy Total fluoroscopy Time: time: 10.2 min 10.2 min Contrast Material Contrast Material Type Amount (ml) Isovue 300 40 Procedure Medications Medication Administration Route Dosage Refer to Anesthesia Notes for Sedation Medications Hemodynamics Rest BSA: 1.57 (m2) O2 Consumption: Estimated: 170.57 (ml/min) O2 Consumption indexed : Estimated:108.64 (ml/min/m) Heart Rate: 107 (bpm) Snapshots Pre Cath Intra NCS Post Cath Vital Signs Time Heart Resp SPO2 etCO2 NIBP (mmHg) Rhythm Pain Sedation Rate (ipm) (%) (mmHg) Status Level (bpm) 16:24:51 107 37 99 31.5 Measuring NSR 0 (11) 10(A) , No pain 16:25:05 59 32 99 39 126/94(121) NSR 0 (11) 10(A) , No pain 16:29:13 55 0 89 37.5 126/57(96) NSR 0 (11) 10(A) , No pain 16:31:39 90 24 97 39 111/73(94) NSR 0 (11) 10(A) , No pain 16:36:30 102 7 99 42 137/81(96) NSR 0 (11) 10(A) , No pain 16:40:31 106 13 100 39.8 150/88(130) NSR 0 (11) 10(A) , No pain 16:44:37 106 13 100 39.1 154/92(111) NSR 0 (11) 10(A) , No pain 16:48:51 62 9 100 35.3 161/72(124) NSR 0 (11) 10(A) , No pain 16:53:09 59 7 100 32.3 153/68(119) NSR 0 (11) 10(A) , No pain 16:57:25 58 7 100 34.5 149/67(119) NSR 0 (11) 10(A) , No pain 17:01:39 59 10 100 36 150/65(115) NSR 0 (11) 10(A) , No pain 17:05:51 59 6 100 34.5 161/74(130) NSR 0 (11) 10(A) , No pain 17:09:51 0 No Cuff NSR 0 (11) 10(A) , No pain 17:13:50 0 No Cuff NSR 0 (11) 10(A) , No pain Medications Time Medication Route Dose Delivered Reason Notes Effectiveness by 17:04:14 Refer to Anesthesia Notes for Sedation Medications Procedure Log Time Note 15:28:50 Patient Height : 65.75 inches 15:28:50 Patient Weight : 114.64 lbs 15:28:50 Use device set IR Diagnostic 15:28:51 Bag Decanter (2002S) opened to sterile field. 15:28:51 Sterile Angiographic Pack opened to sterile field. 15:28:52 Tegaderm 4 x 4 ([id number]) opened to sterile field. 16:09:33 Juarez Cabalos [facility] RT (R) (CV) sent for patient. Start room use. 16:09:35 Time tracking: Regular hours (M-F 7:00 - 5:00) 16:09:40 Plan of Care:Hemodynamics will remain stable., Cardiac rhythm will remain stable., Comfort level will be maintained., Respiratory function will remain adequate., Patient/ family verbilizes understanding of procedure., Procedure tolerated without complication., Recovers from procedure without complications.. 16:09:47 Patient received from Med/Surg to IR Alert and oriented. Tansferred to table in Prone position. 16:09:49 Signed procedure consent form obtained from patient. 16:09:50 Warm blankets applied, and maurilio hugger turned on for patient comfort. 16:09:50 Correct patient and procedure confirmed by team. 16:10:08 - 16:10:48 ECG and BP/O2 sat monitors applied to patient. 16:10:54 H&P Date Dictated: 10/04/2019 Within 30 days and on chart.. 16:10:55 Pre-procedure instructions explained to patient. 16:10:56 Pre-op teaching completed and patient verbalized understanding. 16:10:59 Patient NPO since Midnight. 16:12:50 Is the patient allergic to Iodine/contrast media? No. 16:12:53 - 16:12:54 ----see anethesia note for Pre-sedation anethsthesia assessment.---- 16::18 Left Renal was prepped with chlora-prep and draped in sterile fashion. 16::20 Alarms reviewed by Radha Miller 16::20 Sharps counted by scrub and verified by Dodie 16::22 - 16::56 Baseline sample Acquired. 16::02 Vital chart was started 16:23:06 Full Disclosure recording started 16::07 - 16::18 KIT, INTRODUCER ACCUSTICK II W/C ([id number]) opened to sterile field. 16::01 Physician arrived 16::54 --------ALL STOP TIME OUT------ 16::55 Final Timeout: patient, procedure, and site verified with staff and physician. All members of the team are in agreement. 16:27:51 Left renal site verified by team. 16::02 5) <15 or on dialysis Very severe, or end stage kidney failure. 16:28:06 Devang Foote Jr, CRNA present and monitoring patient for TIVA. 16:28:10 - 16:28:16 Procedure started. 16:28:31 Local anesthetic to Left Renal area with Lidocaine 1% by Philip patel MD.INITIAL ACCESS ONLY 16:37:45 ROADRUNNER .035 145 glide wire ([id number]) opened to sterile field. 16:37:45 STOPCOCK 3-Way Large Bore ([id number]) opened to sterile field. 16:37:46 CONNECTING TUBE FOR DRAINAGE BAG ([id number]) opened to sterile field. 16:37:47 [place] Sci 8FR.X 24CM Ureteral Stent ([id number]) opened to sterile field. 16:37:47 Abscession 8Fr drainage catheter ([id number]) opened to sterile field. 16:38:40 AMPLATZ Super stiff 180cm wire ([id number]) opened to sterile field. 16:41:53 GLIDE CATHETER 4FR Straight 65cm (CG412) opened to sterile field. 16:57:40 Procedure ended.(Physican Out) 16:58:17 Fluoroscopy time 10.20 minutes. 16:58:20 Dose Area Product 48 mGy/cm. 16:58:27 Contrast amount:Isovue 300 40ml. 16:58:30 Insertion/operative site no bleeding no hematoma. 16:58:35 Post-op/insertion site Left Renal Area dressed using a statlock, 4 x 4 and Tegaderm. 16:59:05 Post procedure instruction explained to patient.Patient verbalizes understanding. 16:59:06 Procedure and supply charges have been captured, reviewed, submitted an d are correct. 17:04:14 Refer to Anesthesia Notes for Sedation Medications was administered by ; ; Verbal order read back and verified. 17:14:22 Vital chart was stopped Device Usage Item Name Manufacture Quantity Catalog Hospital Part Current [facility] l Lot# / Number Charge Number Stock Stock Serial# Code Bag Decanter Microtek 1 [id number] 5 () Medical Inc. Sterile Cardinal 1 [id number] 529535 5 Angiographic Health Pack Tegaderm 4 x 3M 1 1626W 372655 585810 303881 5 4 (1626W) KIT, [place] 1 [id number] 252687 735771 695809 5 INTRODUCER Scientific ACCUSTICK II W/C ([id number]) [facility] [id number] 828713 834445 454459 5 .035 145 glide wire (D92974) [facility] J76498 499693 8761 257183 5 3-Way Large Bore (Q05926) CONNECTING [place] 1 [id number] 019846 149122 217605 5 TUBE FOR Scientific DRAINAGE BAG ([id number]) [place] Sci [place] 1 [id number] 274034 040917 275061 5 8FR.X 24CM Scientific Ureteral Stent ([id number]) Abscession Angiodynamics 1 [id number] 654201 876780 035972 5 8Fr drainage catheter (04446435) AMPLATZ [place] 1 [id number] 280493 001994 505630 5 Super stiff Scientific 180cm wire ([id number]) GLIDE Terumo 1 CG412 720270 740057 5 CATHETER 4FR Straight 65cm (CG412) Signature Audit [place] Stage Time Signature Unsigned Intra-Procedure 10/04/2019 MIKAEL CEJA RT 5:14:16 PM (R) [facility] [address] [place] [address]
--- NOTE | ~2019-09-29 | HEMODYNAMI ---
PATIENT:ANETTE LEWIS MEDICAL RECORD: [id number] : 59 LOCATION:D.MS Page2215 ADMISSION DATE: 09/29/19 Generatedon:10/04/201914:06 Patient name: ANETTE LEWIS Patient #: [id number] SSN: : 1955 Date of study: 10/04/2019 Page: Of Hemodynamic Procedure Report Patient Data Patient Demographics Procedure consent was obtained First Name: ANETTE Gender: Female Last Name: JOSHUA : 1955 Middle Initial: RETA Age: 63 year(s) Patient #: [id number] Race: Additional ID: [id number] Contact details Address: [address] [place] [address] State: [place] City: [place] Zip code: [address] Past Medical History History of disease Date Diagnosis Comments CAD Allergies Allergen Reaction Date Comments Reported Statins 03/23/2015 Other allergy 10/01/2018 Bactrim, Statins Admission Admission Data Admission Date: 09/29/2019 Admission Time: 22:13 Room #: D.2215 Height (in.): 65.75 BSA: 1.57 (m2) Height (cm.): 167 BMI: 18.65 (kg/m2) Weight (lbs.): 114.64 Weight (kg.): 52 Procedure Procedure Types Cath Procedure Diagnostic Procedure [facility]RISTIAN Procedure Description Procedure Date Procedure Date: 10/04/2019 Procedure Start Time: 13:49 Procedure End Time: 14:03 Procedure Staff Name Function Jude Martínez MD Performing Physician Lanette Tolbert Business Editor Barbara Munoz RT Monitor Michael Coleman RN Nurse Nik Carlos CRNA Additional personnel Shaylee Stanley RN Nurse Procedure Data Cath Procedure Fluoroscopy Diagnostic fluoroscopy Total fluoroscopy Time: 0 time: 0 min min Diagnostic fluoroscopy Total fluoroscopy dose: 0 dose: 0 mGy mGy Estimated blood loss: 0 ml Procedure Complications No complications Procedure Medications Medication Administration Route Dosage 0.9% NaCl I.V. 100 ml/hr Oxygen etCO2 Nasal cannula 2 l/min Hurricaine Comer P.O. 2 Sprays Refer to Anesthesia Notes for Sedation Medications Hemodynamics Rest BSA: 1.57 (m2) O2 Consumption: Estimated: 137.37 (ml/min) O2 Consumption indexed : Estimated:87.5 (ml/min/m) Heart Rate: 51 (bpm) Snapshots Pre Cath Intra NCS Post Cath Vital Signs Time Heart Resp SPO2 etCO2 NIBP (mmHg) Rhythm Pain Sedation Rate (ipm) (%) (mmHg) Status Level (bpm) 13:48:26 59 10 96 23.2 139/64(115) SB 0 (11) 10(A) , No pain 13:52:40 46 14 98 18.7 135/57(114) SB 0 (11) 5(A) , No pain 13:56:50 50 18 97 9.7 127/66(103) SB 0 (11) 5(A) , No pain 14:01:00 45 9 98 12.7 131/58(106) SB 0 (11) 5(A) , No pain 14:03:52 53 19 99 23.2 120/66(103) SB 0 (11) 5(A) , No pain Medications Time Medication Route Dose Verified Delivered Reason Notes Effecti veness by by 13:47:04 Oxygen etCO2 2 Jude Shaylee used for Nasal l/min [facility] procedure cannula MD HOOKS 13:47:13 Hurricaine P.O. 2 Jude Shaylee for local Comer Sprays [facility] anesthetic MD HOOKS 13:47:48 0.9% NaCl I.V. 100 Jude Bocanegraa used for ml/hr [facility] procedure MD HOOKS 13:48:30 Refer to Jude Roque for Anesthesia [facility] sedation Notes for MD PEDERSEN Sedation Medications Procedure Log Time Note 13:00:01 Informed consent obtained and on chart 13:00:22 Procedure Status [facility]IAN. 13:00:24 Time tracking: Regular hours (M-F 7:00 - 5:00) 13:00:27 Plan of Care:Hemodynamics will remain stable., Cardiac rhythm will remain stable., Comfort level will be maintained., Respiratory function will remain adequate., Patient/ family verbilizes understanding of procedure., Procedure tolerated without complication., Recovers from procedure without complications.. 13:02:18 Michael Coleman RN sent for patient. Start room use. 13:02:51 Patient Weight : 114.64 lbs 13:02:53 Patient Height : 65.75 inches 13:40:02 Patient arrived from Med/Surg to CCL 2. Patient remains on bed/stretcher for procedure. 13:40:03 Warm blankets applied, and maurilio hugger turned on for patient comfort. 13:40:04 Correct patient and procedure confirmed by team. 13:40:05 ECG and BP/O2 sat monitors applied to patient. 13:40:11 H&P Date Dictated: 10/04/2019 ER History on chart.. 13:40:12 Pre-procedure instructions explained to patient. 13:40:13 Pre-op teaching completed and patient verbalized understanding. 13:40:15 Family AVAILABLE PER PHONE CALL 13:40:31 Patient NPO since Midnight. 13:40:44 Is the patient allergic to Iodine/contrast media? No. 13:41:09 Nik Carlos CRNA present and monitoring patient for TIVA. 13:43:17 Patient diabetic? No. 13:43:37 Is patient on blood thinner?No 13:43:41 Patient not . Patient is over age 55. 13:43:43 Previous problem with sedation/anesthesia? No ? 13:43:44 Snore? Yes 13:43:45 Sleep apnea? No 13:43:46 Deviated septum? No 13:43:46 Opens mouth fully? Yes 13:43:52 Sticks out tongue? Yes 13:43:54 Airway obstruction? Yes COPD 13:44:00 Dentures? Yes OUT IN ROOM 13:44:08 Patient pain scale 0/10 ?. 13:44:16 IV patent on arrival in left forearm with 0.9% NaCl at [facility]. 13:44:19 Lab results completed and on chart. 13:44:22 Alarms reviewed by R. N. 13:44:24 Sharps counted by scrub and verified by R.N. 13:47:04 Oxygen 2 l/min etCO2 Nasal cannula was administered by Shaylee Stanley RN; used for procedure; Verbal order read back and verified. 13:47:13 Hurricaine Comer 2 Sprays P.O. was administered by Shaylee Stanley RN; for local anesthetic; Verbal order read back and verified. 13:47:13 Vital chart was started 13:47:34 Full Disclosure recording started 13:47:37 Rhythm: sinus bradycardia 13:47:48 0.9% NaCl 100 ml/hr I.V. was administered by Shaylee Stanley RN; used for procedure; Verbal order read back and verified. 13:47:57 Baseline sample Acquired. 13:48:30 Refer to Anesthesia Notes for Sedation Medications was administered by Jude Martínez MD; for sedation; Verbal order read back and verified. 13:49:21 --------ALL STOP TIME OUT------ 13:49:22 Final Timeout: patient, procedure, and site verified with staff and physician. All members of the team are in agreement. 13:49:25 Fire Safety Assessment: C--Open oxygen or nitrous oxide is being used. 13:49:28 Physical assessment completed. ASA score P 3 - A patient with severe systemic disease as per Jude Martínez MD. 13:49:32 Sedation plan: TIVA Medication:Propofol 13:49:55 CHRISTIAN 13:50:04 Procedure started. 13:51:03 [facility] Embossing Calender Operator present for CHRISTIAN. 13:51:04 CHRISTIAN started. 13:57:33 CHRISTIAN completed. 13:57:40 Procedure ended.(Physican Out) 13:57:49 Fluoroscopy time 00.00 minutes. 13:57:51 Fluoroscopy dose: 0 mGy 13:57:51 Flurop Dose total: 0 13:57:56 Post-procedure physical assessment completed. ASA score P 3 - A patient with severe systemic disease as per Jude Martínez MD. 13:58:01 Post procedure rhythm: sinus bradycardia 13:59:16 Estimated blood loss: 0 ml 13:59:17 Post procedure instruction explained to patient.Patient verbalizes understanding. 13:59:17 Patient needs reinforcement of post procedure teaching. 14:00:33 Procedure and supply charges have been captured, reviewed, submitted and are correct. 14:00:35 Procedure Complication : No complications 14:00:46 CHRISTIAN Findings: CHRISTIAN w/ cardioversion: no left atrial clot noted (proceed with cardioversion) 14:00:47 Operative report dictated upon procedure completion. 14:00:47 See physician's report for complete and final results. 14:00:50 Report given to Med/Surg. 14:00:59 Patient transfered to Med/Surg with Bed. 14:03:48 Vital chart was stopped 14:03:52 Procedure ended. 14:03:52 Full Disclosure recording stopped Signature Audit [place] Stage Time Signature Unsigned Intra-Procedure 10/04/2019 Barbara Munoz 2:04:25 PM RT(R); Shaylee Stanley RN; Jude Martínez MD Signatures Performing Physician : Signature : Jude Martínez MD Date : Time : Monitor : Barbara Munoz Signature : RT Date : Time : Nurse : Michael Coleman RN Signature : Date : Time : Nurse : Shaylee Stanley RN Signature : Date : Time : [address] [place] [address]
[2019-09-29 21:17] LABS: BASOPHILS 0.5 % (0-2); EOSINOPHILS 1.1 % (0-7); HEMATOCRIT 33.5 % (36.0-48.0); IMMATURE GRANULOCYTES 0.5 % (0-5); LYMPHOCYTES 14.8 % (15-50); MCH 28.6 pg (26.0-34.0); MCHC 32.8 g/dL (31.0-37.0); MCV 87.2 fL (80.0-100.0); MEAN PLATELET VOLUME 9.4 fL (7.4-10.4); NEUTROPHILS 73.1 % (40-80); PLATELET COUNT 244 10x3/uL (130-400); RBC 3.84 10x6/uL (4.00-5.40); RDW 17.8 % (11.5-14.5); WBC 6.3 10x3/uL (4.8-10.8)
[2019-09-29 21:25] LABS: CALC OSMOLALITY 286 mosm/kg (275-300); CALCIUM 8.5 mg/dL (8.5-10.1); CHLORIDE - SERUM 104 mmol/L (98-107); CREATININE - SERUM 2.4 mg/dL (0.6-1.3); GLUCOSE 131 mg/dL (74-106); INR 1.04 (0.85-1.17); POTASSIUM - SERUM 3.6 mmol/L (3.5-5.1); PROTIME 13.6 SECONDS (11.6-15.0); SODIUM 140 mmol/L (136-145); UREA NITROGEN 29 mg/dL (7-18); eGFR NON AFRICAN AMERICAN 22 mL/min (90-120)
[2019-09-29 21:26] LABS: APTT 38.8 SECONDS (22.8-39.4)
[2019-09-29 21:27] LABS: D-DIMER-QUANTITATIVE 0.91 ug/mLFEU (0.20-0.54)
[2019-09-29 21:53] LABS: ALBUMIN 3.7 g/dL (3.4-5.0); ALKALINE PHOSPHATASE 121 U/L (30-120); ALT (SGPT) 17 U/L (10-68); C-REACTIVE PROTEIN 2.5 mg/dL (0.0-0.9); CKMB 3.6 U/L (0.0-3.6); CREATINE KINASE 127 UL (21-215); FERRITIN 223 ng/mL (3-244); PRO BNP 8679 pg/mL (0-125); PROTEIN - SERUM 7.1 g/dL (6.4-8.2); TROPONIN-I 0.025 ng/mL (0.000-0.060)
[2019-09-29] MEDS ORDERED: UNITHROID150 MCG PO (23:28)
--- NOTE | 2019-09-29 23:28 | NUR ---
SPOKE WITH DAUGHTER FABIENNE AND NOTIFIED PATIENT BEING ADMITTED TO ROOM 5623
--- NOTE | 2019-09-29 23:30 | NUR ---
PT ARRIVED TO THE FLOOR. ALERT AND ORIENTED. BREATHING LABORED. PT STATES NO PROBLEMS OR NEEDS AT THIS TIME. 2LO2 NASAL CANNULA. LUNG SOUNDS CLEAR. BOWEL SOUNDS ACTIVE. SKIN CLEN DRY AND INTACT. LOWER LEG SWELLING PRESENT. IV SITE RT FA DRESSING CLEAN DRY AND INTACT. NO SIGNS OF INFECTION OR INFULTRATION. IV SL AT THIS TIME. NO IV ORDERS. WILL CONTINUE PLAN OF CARE. CALL LIGHT IN REACH. BED LOWERED AND LOCKED. BED RAILS UPX1.
[2019-09-30] VITALS (7 sets, daily range): BP systolic 125–171; BP diastolic 58–83; Ht 167.6 cm; Wt 44.5 kg
[2019-09-30 04:33] LABS: BASOPHILS 0.4 % (0-2); EOSINOPHILS 1.1 % (0-7); HEMATOCRIT 32.2 % (36.0-48.0); HEMOGLOBIN 10.4 g/dL (12-16); IMMATURE GRANULOCYTES 0.4 % (0-5); MCHC 32.3 g/dL (31.0-37.0); MCV 86.6 fL (80.0-100.0); MEAN PLATELET VOLUME 9.6 fL (7.4-10.4); MONOCYTES 10.3 % (2-11); NEUTROPHILS 66.8 % (40-80); PLATELET COUNT 258 10x3/uL (130-400); RBC 3.72 10x6/uL (4.00-5.40)
[2019-09-30 04:52] LABS: WBC 4.6 10x3/uL (4.8-10.8)
[2019-09-30 05:02] LABS: ALBUMIN 3.2 g/dL (3.4-5.0); ANION GAP 18.6 mmol/L (8-16); BILIRUBIN - TOTAL 0.43 mg/dL (0.2-1.3); CALCIUM 8.4 mg/dL (8.5-10.1); CARBON DIOXIDE 20.1 mmol/L (21.0-32.0); CREATININE - SERUM 2.6 mg/dL (0.6-1.3); POTASSIUM - SERUM 3.7 mmol/L (3.5-5.1); PROTEIN - SERUM 6.3 g/dL (6.4-8.2)
--- NOTE | 2019-09-30 07:56 | NUR ---
PT SITTING UP IN BED, REQUESTED COFFEE, IV IN RT AC SL, PATENT, LUNGS CTA, ABDOMEN SOFT, NO S/SX OF DISTRESS, CL IN REACH CONTINUE WITH PLAN OF CARE
--- NOTE | 2019-09-30 09:40 | NUR ---
I have reviewed this patient and I concur with the Shift Assessment completed by the Licensed Practical Nurse today this shift.
--- NOTE | 2019-09-30 09:46 | NUR ---
ADMINISTERED SCHEDULED MEDS WELL PRN MEDICATION UPON REQUEST, NO OTHER NEEDS VOICED, CONTINUE WITH PLAN OF CARE
[2019-09-30 17:07] LABS: % SATURATION 29 % (15-55); IRON 88 ug/dl (35-150); TOTAL IRON BIND CAPACITY 300 ug/dl (260-445); UNSAT IRON BIND CAPACITY 212 ug/dl (150-375)
[2019-09-30 17:07] LABS: CREATININE - URINE 68.1 mg/dL (30-125); PROTEIN - URINE 28.4 mg/dL (0.0-11.9)
[2019-09-30 17:09] LABS: BILIRUBIN NEGATIVE (NEGATIVE); GLUCOSE NEGATIVE (NEGATIVE); KETONE NEGATIVE (NEGATIVE); NITRITE NEGATIVE (NEGATIVE); UROBILINOGEN NORMAL (NORMAL)
--- NOTE | 2019-09-30 21:15 | NUR ---
PT C/O LOW BACK PAIN 12/08 AND ANXIETY. GAVE TYLENOL 650 MG AND ATIVAN 0.5 MG PO AND SCHEDULED MEDS. COMPLETE ASSESSMENT PER FLOW-SHEET. NO OTHER NEEDS. WILL REASSESS AND CONTINUE TO MONITOR.
[2019-10-01] VITALS: BP 128/64
[2019-10-01 04:00] VITALS: BP 135/76
[2019-10-01 05:50] LABS: BASOPHILS 0.5 % (0-2); EOSINOPHILS 4.5 % (0-7); HEMATOCRIT 30.2 % (36.0-48.0); HEMOGLOBIN 9.5 g/dL (12-16); IMMATURE GRANULOCYTES 0.3 % (0-5); LYMPHOCYTES 32.6 % (15-50); MCH 27.8 pg (26.0-34.0); MCHC 31.5 g/dL (31.0-37.0); MCV 88.3 fL (80.0-100.0); MEAN PLATELET VOLUME 9.8 fL (7.4-10.4); MONOCYTES 14.7 % (2-11); NEUTROPHILS 47.4 % (40-80); PLATELET COUNT 238 10x3/uL (130-400); RBC 3.42 10x6/uL (4.00-5.40); RDW 18.4 % (11.5-14.5); WBC 3.8 10x3/uL (4.8-10.8)
[2019-10-01 06:20] LABS: ALBUMIN 2.8 g/dL (3.4-5.0); ANION GAP 16.8 mmol/L (8-16); BILIRUBIN - TOTAL 0.38 mg/dL (0.2-1.3); CALCIUM 7.9 mg/dL (8.5-10.1); CREATININE - SERUM 2.5 mg/dL (0.6-1.3); POTASSIUM - SERUM 3.8 mmol/L (3.5-5.1); PROTEIN - SERUM 5.5 g/dL (6.4-8.2)
[2019-10-01 08:00] VITALS: BP 156/71
--- NOTE | 2019-10-01 08:11 | NUR ---
PT SITTING UP IN BED DRINKING COFFEE, PT HAD STOOL AVAILABLE FOR LAB, COLLECTED SPECIMEN. PT STATED SHE SLEPT WELL AND NO NEEDS AT THIS TIME, CL IN REACH, CONTINUE WITH PLAN OF CARE
--- NOTE | 2019-10-01 10:22 | NUR ---
RECEIVED ORDERS TO BLADDER SCAN PT AFTER SHE VOIDS, PT WENT TO RESTROOM SOON I TOLD HER I WAS HERE TO ACAN HER BLADDER, AFTER VOIDING PT HAS 43ML AFTER VOIDING. PT STATES THAT SHE HAS FELT LIKE HER BLADDER " FELL" FOR A FEW YEARS NOW. A LITTLE PAIN AND CRAMPING IN ABD AREA.
--- NOTE | 2019-10-01 11:56 | HP ---
PATIENT: ANETTE LEWIS MEDICAL RECORD: [id number] ACCOUNT: [id number] LOCATION:D.MS Page2215 : 59 ADMISSION DATE: 09/29/19 PCP: RICARDO WALLS MD HISTORY AND PHYSICAL EXAMINATION DATE OF ADMISSION: 09/29/2019 CHIEF COMPLAINT: Lower extremity swelling, shortness of breath. HISTORY OF PRESENT ILLNESS: This is a 63-year-old female with a history of iron-deficient anemia, coronary artery disease, hypertension, reflux, non-Hodgkin's lymphoma, hypothyroidism, anxiety, depression, chronic back and neck pain, who has been seeing me and Dr. Jonathan Jeffery for her anemia. She was in the hospital in June and then again in July with symptomatic anemia. In the past she has had some upper GI bleeding and has had argon laser treatment by Dr. Guallpa. Her iron has been very low and she has been seeing Dr. Jonathan Jeffery for a periodic iron injections. The patient states she was seen in Dr. Jeffery's office just yesterday and sent over to [facility] and got 2 units of packed red blood cells and she is scheduled to get another iron infusion next week with Dr. Jeffery. After she got her blood transfusion yesterday, she had increased lower extremity edema and shortness of breath. Over the last couple of months, I have seen her in my office for increased lower extremity edema and some shortness of breath. I gave her 10 days of Lasix, which she took in early July. She is not taking any more Lasix since then. Her creatinine was normal in July at 1.0 when she was in the hospital at [facility]. When I checked her creatinine in my office on 08/24/2019 it was 1.5. I checked it again on 09/02/2019 and it was up to 3.91 and still went up to 4.1. It has now since gone back down to 2.6. I also ordered an echocardiogram that was done in my office and was read by Dr. Brooks on 09/08/2019 that showed mildly dilated left ventricle with ejection fraction of 55%. There was dqwvaifc-[id number] mitral regurgitation and it was recommended to consider a transesophageal echo. Last night, in the ER, her blood pressure was 195/90, her O2 sat was 90%. EKG showed normal sinus rhythm, heart rate of 70. Her lab work showed normal potassium. Her creatinine was actually 2.4 last night and is 2.6 this morning. Her troponin was 0.025 in the ER. She was admitted. Her proBNP was elevated at 8679. She is admitted for CHF, acute kidney injury. PAST MEDICAL HISTORY: Coronary artery disease, hypertension, history of myocardial infarction, gastroesophageal reflux, non-Hodgkin's lymphoma, hypothyroidism, anxiety, depression, chronic back and neck pain, iron-deficiency anemia, COPD, pulmonary hamartoma and just in the last month an acute kidney injury with creatinine going up to 4.0 after only getting 10 days of Lasix. PAST SURGICAL HISTORY: Hysterectomy, coronary artery bypass graft, coronary stents, open laparotomy in 2007 with lysis of adhesions and a duodenotomy with oversewing of duodenal ulcer. She had a left thoracotomy with resection of left upper lobe hamartoma by Dr. Vazquez. She has had a tonsillectomy. ALLERGIES: BACTRIM AND PRAVASTATIN. HOME MEDICATIONS: Include amlodipine 10 mg once a day, Paxil 40 mg once a day, gabapentin 600 mg t.i.d., lorazepam 0.5 b.i.d. p.r.n. anxiety, Percocet 10/325 one tablet twice a day, trazodone 50 mg at bedtime, pantoprazole 40 mg once a day, Carafate 1 g before meals and at bedtime, levothyroxine 150 mcg once a day. HISTORY AND PHYSICAL [id number] JOSHUAANETTE MCDUFFIE SOCIAL HISTORY: Recently just a few months ago. She is on disability due to her medical problems. FAMILY HISTORY: Father at 50 of an [place]. Mother is alive and well. REVIEW OF SYSTEMS: GENERAL: No major weight changes. HEENT: No particular sinus or allergy problems. RESPIRATORY: She is long time smoker, but there is no diagnosis of chronic obstructive pulmonary disease. GASTROINTESTINAL: History of reflux, history of ulcer. 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 She has had gastric ectasias treated with multiple times by Dr. Guallpa with argon laser. GENITOURINARY: No significant problems there. MUSCULOSKELETAL: Chronic back and neck pain. NEUROLOGY: No migraines or seizures. PSYCHIATRIC: Has anxiety and depression. PHYSICAL EXAMINATION: VITAL SIGNS: This morning temperature 98.1, pulse 64, respirations 22, blood pressure 167/66, O2 sats 96%. GENERAL: She is awake and alert. She is feeling better. HEENT: Grossly within normal limits. NECK: Supple. HEART: Regular rate and rhythm without murmur. LUNGS: Clear. ABDOMEN: Soft, flat, nontender. EXTREMITIES: Only 1+ edema now. The patient states it has gone down since she got diuretic in the ER. LABORATORY AND DIAGNOSTIC DATA: CBC with a white count of 4600, hemoglobin today is 10.4, hematocrit 32.2, platelets are normal. Sodium 143, potassium 3.7, chloride 108, CO2 20.1, BUN 28, creatinine 2.6, glucose 90, calcium 8.4. Liver enzymes are normal. Albumin 3.2. Chest x-ray done in the ER shows mild congestive heart failure and emphysema. ASSESSMENT: 1. Acute diastolic heart failure with ejection fraction of 55% on echo done on 09/08/2019 in my office. 2. Moderate to severe mitral regurgitation on echo. 3. Acute kidney injury going as high as 4.1 in my office in the last month, now down to 2.6 today. 4. Hypertension. PLAN: We will ask cardiology to see about the CHF and the echo and we will consult nephrology about her acute kidney problems over the last several weeks. Other tests or procedures as warranted. TRANSINT:[id number] Voice Confirmation ID: [id number] DOCUMENT ID: [id number] HISTORY AND PHYSICAL [id number] ANETTE LEWIS WILLIAM MD at 1156 CC: [id number] DICTATION DATE: 09/30/19 1222 TOW TRUCK OPERATOR: 09/30/19 1349 ADM IN [facility] [address] [place] [address]
[2019-10-01 12:05] VITALS: BP 162/67
[2019-10-01 16:00] VITALS: BP 157/84
--- NOTE | 2019-10-01 17:17 | NUR ---
I have reviewed this patient and I concur with the Shift Assessment completed by the Licensed Practical Nurse today this shift.
[2019-10-01 19:43] VITALS: BP 140/61
[2019-10-02] VITALS: BP 140/63
--- NOTE | 2019-10-02 02:00 | NUR ---
PATIENT RESTING IN BED WITH EYES CLOSED. NO S/S OF ACUTE DISTRESS. NO C/O AT THIS TIME. PATIENT HAS 2L OF O2 NASAL CANNULA PRN. PATIENT HAS RIGHT FOREARM, SALINE LOC. IV IS PATENT WITHOUT REDNESS, SWELLING, OR TENDNERNESS. PATIENT IS UP ADLIB. CALL LIGHT WITHIN REACH. WILL CONTINUE TO MONITOR.
[2019-10-02 04:00] VITALS: BP 132/63
[2019-10-02 06:53] LABS: BASOPHILS 0.2 % (0-2); EOSINOPHILS 3.3 % (0-7); HEMATOCRIT 32.4 % (36.0-48.0); HEMOGLOBIN 10.2 g/dL (12-16); IMMATURE GRANULOCYTES 0.5 % (0-5); MCH 27.6 pg (26.0-34.0); MCHC 31.5 g/dL (31.0-37.0); MCV 87.8 fL (80.0-100.0); MEAN PLATELET VOLUME 10.1 fL (7.4-10.4); MONOCYTES 12.4 % (2-11); NEUTROPHILS 59.6 % (40-80); PLATELET COUNT 257 10x3/uL (130-400); RBC 3.69 10x6/uL (4.00-5.40); RDW 17.4 % (11.5-14.5); WBC 4.2 10x3/uL (4.8-10.8)
[2019-10-02 07:34] LABS: ALBUMIN 3.2 g/dL (3.4-5.0); ANION GAP 16.9 mmol/L (8-16); BILIRUBIN - TOTAL 0.31 mg/dL (0.2-1.3); CALCIUM 8.6 mg/dL (8.5-10.1); CARBON DIOXIDE 19.8 mmol/L (21.0-32.0); CREATININE - SERUM 2.8 mg/dL (0.6-1.3); POTASSIUM - SERUM 3.7 mmol/L (3.5-5.1)
--- NOTE | 2019-10-02 07:37 | NUR ---
PT SITTING UP IN BED WITH EYES OPEN, ALERT AND ORIENTED. IV LOCATED TO RIGHT FOREARM CURRENTLY SL. NO S/S OF DISTRESS, DENIES CURRENT NEEDS, WILL CONT TO MONITOR.
[2019-10-02 08:03] VITALS: BP 135/72
--- NOTE | 2019-10-02 09:30 | NUR ---
IV OUT OF RIGHT FA, CATHETER INTACT.
[2019-10-02 13:03] VITALS: BP 128/71
--- NOTE | 2019-10-02 13:06 | EC ---
PATIENT:ANETTE LEWIS DATE OF SERVICE: 09/29/19 SEX: F MEDICAL RECORD: [id number] DATE OF : [birth year] LOCATION:D.MS [facility] AGE OF PATIENT: 63 ADMISSION DATE: 09/29/19 REFERRING PHYSICIAN: INTERPRETING PHYSICIAN: GT GARCIA MD ECHOCARDIOGRAM REPORT ECHO CHARGES 4 ECHO COMPLETE Date: 10/01/19 CLINICAL DIAGNOSIS: CHF/MITRAL REGURG HX CAD/CABG ECHOCARDIOGRAPHIC MEASUREMENTS (adult normal given) AC root (d.<3.7cm) 2.8 cm LV Septum d (<1.2 cm> 1.2 cm Valve Excursion 1.5 cm LV Septum (systole) 1.6 cm Left Atria (s.<4.0cm> 5.3 cm LVPW d(<1.2cm) 1.7 cm RV (d.<2.3cm) 4.6 cm LVPW (sytole) 2.1 cm LV diastole(<5.6CM) 5.9 cm MV E-F(>70mm/sec) cm LV systole 4.1 cm LVOT Diameter 1.7 cm MV exc.(>10mm) 1.6 cm Est.ejection fraction (50-75%) % DOPPLER: LVIT cm/sec A 41.0 cm/sec E 125.0 cm/sec LA cm/sec RVSP 35 mmHg LVOT 73 cm/sec AOP1/2T m/s Asc. Ao 149 cm/sec RVOT 101 cm/sec RA cm/sec PA 127 cm/sec AV Gradient Peak 8.89 mmHg AV Mean 4.12 mmHg AV Area 1.3 cm MV Gradient Peak 8.12 mmHg MV Mean 1.81 mmHg MV Area cm COMMENTS: Tinter Photograph: 2 DEEPAK NELSON Research Director: Franco Garcia TAPE# PACS Pericardial Effusion N DATE OF SERVICE: 10/01/2019 PROCEDURE: Transthoracic echocardiograph. Left ventricle: The patient has moderate significant left ventricular hypertrophy, mostly seen in the posterior wall. The patient has an EF in the 40% to 45% range. There is mild hypokinesis in the anterior septal region. Left atrium shows severe enlargement. At 5.3 cm. ECHOCARDIOGRAM REPORT [id number] ANETTE LEWIS The right ventricle shows moderate dilatation, but with good function. The aortic valve is normal with possible trace aortic insufficiency. The mitral valve shows moderate to severe eccentric mitral regurgitation. The mitral regurgitation appears to be posteriorly directed and not centrally located. Tricuspid valve has mild tricuspid regurgitation. The RVSP was normal at 35 mmHg. Right atrium is moderately dilated. Pulmonic valve has trace pulmonic insufficiency. 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 There is some eccentric components to her mitral regurgitation, which may suggest dysfunction of the papillary muscle area or possibly a coaptation issue or prolapse of the valve. Further studies may be helpful. TRANSINT:[id number] Voice Confirmation ID: [id number] DOCUMENT ID: [id number] GT GARCIA MD at 1306 CC: [id number] DICTATION DATE: 10/02/19 1140 ENGRAVER COPPERPLATE: 10/02/19 1248 [facility] IN [facility] [address] [place] [address]
[2019-10-02 17:32] VITALS: BP 147/90
[2019-10-02 20:00] VITALS: BP 153/66
[2019-10-03] VITALS: BP 110/66
[2019-10-03 04:00] VITALS: BP 133/60
[2019-10-03 06:01] LABS: ALBUMIN 2.8 g/dL (3.4-5.0); ANION GAP 14.6 mmol/L (8-16); BILIRUBIN - TOTAL 0.21 mg/dL (0.2-1.3); CARBON DIOXIDE 21.2 mmol/L (21.0-32.0); POTASSIUM - SERUM 3.8 mmol/L (3.5-5.1); PROTEIN - SERUM 5.5 g/dL (6.4-8.2)
[2019-10-03 06:19] LABS: BASOPHILS 0.5 % (0-2); EOSINOPHILS 3.7 % (0-7); HEMATOCRIT 30.1 % (36.0-48.0); HEMOGLOBIN 9.6 g/dL (12-16); IMMATURE GRANULOCYTES 0.2 % (0-5); LYMPHOCYTES 24.6 % (15-50); MCH 28.2 pg (26.0-34.0); MCHC 31.9 g/dL (31.0-37.0); MCV 88.3 fL (80.0-100.0); MEAN PLATELET VOLUME 9.9 fL (7.4-10.4); MONOCYTES 14.5 % (2-11); NEUTROPHILS 56.5 % (40-80); PLATELET COUNT 232 10x3/uL (130-400); RBC 3.41 10x6/uL (4.00-5.40); WBC 4.3 10x3/uL (4.8-10.8)
[2019-10-03 08:02] VITALS: BP 164/66
--- NOTE | 2019-10-03 08:13 | NUR ---
PT SITTING UP IN BED, REQUESTED TO HAVE MORE COFFEE, INFORMED PT SHE IS ON STRICT I&O SO WE NEED TO MONITOR HOW MUCH SHE DRINKS AND EATS, PER DR WALLS, DR THOMPSON WILL BE CONSULTED AND BLADDER SCAN IS NEEDED AFTER PT VOIDS. WILL PERFORM BLADDER SCAN NO OTHER NEEDS AT THIS TIME, CONTINUE WITH PLAN OF CARE
--- NOTE | 2019-10-03 08:42 | NUR ---
BLADDER SCANNED PT AFTER SHE USED RESTROOM. BLADDER SSCAN SHOWED 0ML AFTER VOIDING, NO OTHER NEEDS AT THIS TIME, CONTINUE WITH PLAN OF CARE
[2019-10-03 09:08] LABS: ANA REFLEX - DIRECT Negative (Negative)
--- NOTE | 2019-10-03 10:07 | NUR ---
PT SIGNED CONSENTS FOR BOTH PROCEDURES 10/04/19, PT STATED SHE DOES NOT WANT AN IV RIGHT NOW AND HASN'T HAD ONE SINCE ADMIT. CONTINUE WITH PLAN OF CARE
[2019-10-03 11:45] VITALS: BP 156/66
[2019-10-03 13:09] LABS: SPE - A/G RATIO 1.5 (0.7-1.7); SPE - ALBUMIN 3.4 g/dL (2.9-4.4); SPE - ALPHA-1 GLOBULIN 0.2 g/dL (0.0-0.4); SPE - ALPHA-2 GLOBULIN 0.9 g/dL (0.4-1.0); SPE - BETA GLOBULIN 0.8 g/dL (0.7-1.3); SPE - GAMMA GLOBULIN 0.3 g/dL (0.4-1.8); SPE - M-SPIKE Not Observed g/dL (Not Observed); SPE - TOTAL PROTEIN 5.7 g/dL (6.0-8.5)
--- NOTE | 2019-10-03 13:53 | NUR ---
Nutrition follow-up: Diet: Renal PO intake ~75% average of last 3 meals Pt scheduled for cystoscopy 10/04/19 Wt: 119# Reviewed labs RDN following.
[2019-10-03 14:35] LABS: PATH REVIEW PERIPHERAL SMEAR REVIEWED
[2019-10-03 16:49] VITALS: BP 141/67
--- NOTE | 2019-10-03 18:34 | NUR ---
I have reviewed this patient and I concur with the Shift Assessment completed by the Licensed Practical Nurse today this shift.
--- NOTE | 2019-10-03 20:25 | NUR ---
SITTING UP IN BED, A&O X 4. DENIES DYSPNEA/SOB. LUNG SOUNDS CLEAR, IS AT BEDSIDE. REQUESTS NIGHTLY MEDS, PRN ANXIETY MED, AND TYLENOL. DENIES FURTHER NEEDS, WILL CONTINUE TO MONITOR.
[2019-10-03 21:50] VITALS: BP 115/69
--- NOTE | 2019-10-03 23:30 | NUR ---
PT TAKEN FOR CT. CONTINUE PLAN OF CARE.
[2019-10-04 00:03] VITALS: BP 137/65
[2019-10-04 04:55] LABS: BASOPHILS 0.9 % (0-2); HEMATOCRIT 28.7 % (36.0-48.0); IMMATURE GRANULOCYTES 0.3 % (0-5); LYMPHOCYTES 31.6 % (15-50); MCH 27.7 pg (26.0-34.0); MCHC 31.4 g/dL (31.0-37.0); MCV 88.3 fL (80.0-100.0); MEAN PLATELET VOLUME 9.5 fL (7.4-10.4); MONOCYTES 10.2 % (2-11); PLATELET COUNT 227 10x3/uL (130-400); RBC 3.25 10x6/uL (4.00-5.40); RDW 16.4 % (11.5-14.5); WBC 3.4 10x3/uL (4.8-10.8)
[2019-10-04 05:16] LABS: ALBUMIN 2.9 g/dL (3.4-5.0); ANION GAP 17.4 mmol/L (8-16); BILIRUBIN - TOTAL 0.3 mg/dL (0.2-1.3); CALCIUM 7.9 mg/dL (8.5-10.1); CARBON DIOXIDE 18.6 mmol/L (21.0-32.0); PROTEIN - SERUM 5.5 g/dL (6.4-8.2)
[2019-10-04 05:34] VITALS: BP 164/69
--- NOTE | 2019-10-04 07:15 | NUR ---
REC'D IN BED AWAKE AND ALERT. RESP EVEN AND UNLABORED WITH NO DISTRESS NOTED. CAN EXPRESS NEEDS AND WANTS. NO C/O NOTED OR VOICED. IV NOTED TO LEFT FOREARM. C/L IN REACH AT BEDSIDE.
--- NOTE | 2019-10-04 08:52 | NUR ---
OFF FLOOR AT THIS TIME TO SURGERY SUITE NO C/O NOTED ACCOMPAINED BY OR STAFF.
[2019-10-04 09:07] VITALS: BP 135/66
[2019-10-04 10:53] VITALS: BP 166/76
--- NOTE | 2019-10-04 10:54 | NUR ---
PT RETURN BACK TO FLOOR AT THIS TIME VITAL SIGN WITH IN NORMAL LIMITS AND CHECKED PER PROTOCOL. NO C/O NOTED OR VOICED. C/L IN REACH AT BEDSIDE.
--- NOTE | 2019-10-04 12:59 | OP ---
PATIENT NAME: ANETTE LEWIS MEDICAL RECORD: [id number] :59 LOCATION:D.MS Page2215 ADMISSION DATE:09/29/19 SURGEON: FRANK THOMPSON MD DATE OF OPERATION: 10/04/2019 SURGEON: Frank Thompson MD ANESTHESIA: TIVA by Samantha Guillen CRNA. DIAGNOSIS: Bilateral hydroureteronephrosis causing acute renal failure. PROCEDURES: Cystoscopy, left retrograde pyelogram, right ureteral stent insertion 6-Guatemalan x 24 cm without string attached. FINDINGS: On cystoscopy, single ureteral orifices bilaterally with no bladder tumors. Left retrograde pyelogram shows hydroureteronephrosis to the L4 level. Then, the ureter was medially deviated and very stenotic. BLOOD LOSS: None. CLINICAL HISTORY: This is a 63-year-old female, who is in the hospital for congestive heart failure and edema. She did start responding to diuretics. She was found to have acute renal failure with a creatinine level of 4. Ultrasound of the kidney shows bilateral hydroureteronephrosis, the cause of which is unknown. She has an empty bladder on the ultrasound. I have ordered a CT scan of the abdomen and pelvis to try to determine what is the cause of the ureteral obstruction. Today, she comes to have bilateral ureteral stent insertion to relieve the acute renal failure. She was given Ancef 1 gram IV conventional underwriter to the OR. DESCRIPTION OF PROCEDURE: The patient was given IV sedation. She was placed into lithotomy position, prepped and draped. A 21-Guatemalan cystoscope with 30-degree lens was used for visualization. Findings are as outlined above. An open-ended ureteral catheter was placed into the left ureteral orifice. I immediately encountered a lot of resistance even within the intramural tunnel. Contrast was injected and the distal ureter up to the L4 level was extremely stenotic and tight. I attempted to place a Sensor wire through the stenotic region, but instead I ended up perforating the distal ureter in the intramural portion. On the right side, I introduced the open-ended ureteral catheter. Through the lumen of the catheter, I introduced a Glidewire and with difficulty through the stenotic portion of the distal ureter we managed to get up into the renal pelvis. We then removed the open-ended ureteral catheter, leaving the Glidewire in place. Over the Glidewire, we inserted the 6-Guatemalan x 24 cm ureteral stent. Once the stent was in correct position, the wire was withdrawn entirely. The distal end of stent was pushed into the bladder. We will have to get interventional radiology to place an antegrade left ureteral stent for her. She still has a CT of the abdomen and pelvis pending to determine what the cause of her ureteral obstruction is. TRANSINT:[id number] Voice Confirmation ID: [id number] DOCUMENT ID: [id number] OPERATIVE REPORT [id number] ANETTE LEWIS, FRANK Marquez MD at 1259 CC: [id number] DICTATION DATE: 10/04/19 1003 LABEL PRINTER: 10/04/19 1239 ADM IN [facility] [address] [place] [id number]
--- NOTE | 2019-10-04 13:40 | NUR ---
PT OFF FLOOR TO IR AT THIS TIME IN STABLE CONDITION UPON DEPARTURE.
[2019-10-04 13:45] LABS: INR 1.05 (0.85-1.17); PROTIME 13.6 SECONDS (11.6-15.0)
--- NOTE | 2019-10-04 14:16 | NUR ---
RETURN BACK FROM IR AT THIS TIME. NO C/O NOTED OR VOICED. VS WITHIN NORMAL LIMITS. C/L IN REACH AT BEDSIDE.
--- NOTE | 2019-10-04 14:20 | NUR ---
PT OFF FLOOR AGAIN TO IR FOR LEFT NEPHROSTOMY TUB ETO URETERAL STENT PLACMENT AND ALL INDICATED PROCEDURES. VITAL WITHIN NORAML LIMITS. NO C/O NOTED OR VOICED. RESTING WELL AT THIS TIME. C/L IN REACH.
[2019-10-04 15:10] LABS: ANCA - ANTIMYELOPEROXIDASE <9.0 U/mL (0.0-9.0); ANCA - ANTIPROTEINASE 3 <3.5 U/mL (0.0-3.5); ANCA - ATYPICAL <1:20 titer (Neg:<1:20); ANCA - CYTOPLASMIC <1:20 titer (Neg:<1:20); ANCA - PERINUCLEAR <1:20 titer (Neg:<1:20)
--- NOTE | 2019-10-04 18:45 | NUR ---
I have reviewed this patient and I concur with the Shift Assessment completed by the Licensed Practical Nurse today this shift.
[2019-10-04 21:42] VITALS: BP 142/73
[2019-10-05 00:23] VITALS: BP 112/70
[2019-10-05 05:30] LABS: BASOPHILS 0.5 % (0-2); EOSINOPHILS 0.5 % (0-7); HEMATOCRIT 29.7 % (36.0-48.0); HEMOGLOBIN 9.4 g/dL (12-16); IMMATURE GRANULOCYTES 0.3 % (0-5); LYMPHOCYTES 16.9 % (15-50); MCH 27.9 pg (26.0-34.0); MCHC 31.6 g/dL (31.0-37.0); MCV 88.1 fL (80.0-100.0); MEAN PLATELET VOLUME 9.8 fL (7.4-10.4); MONOCYTES 8.6 % (2-11); NEUTROPHILS 73.2 % (40-80); PLATELET COUNT 240 10x3/uL (130-400); RBC 3.37 10x6/uL (4.00-5.40); RDW 16.3 % (11.5-14.5); WBC 3.8 10x3/uL (4.8-10.8)
[2019-10-05 05:50] LABS: ALBUMIN 3.1 g/dL (3.4-5.0); ANION GAP 14.5 mmol/L (8-16); BILIRUBIN - TOTAL 0.29 mg/dL (0.2-1.3); CALCIUM 8.2 mg/dL (8.5-10.1); CARBON DIOXIDE 22.8 mmol/L (21.0-32.0); PROTEIN - SERUM 5.9 g/dL (6.4-8.2); URIC ACID 7.2 mg/dL (2.6-7.2)
[2019-10-05 05:54] LABS: CREATININE - SERUM 2.7 mg/dL (0.6-1.3); POTASSIUM - SERUM 3.3 mmol/L (3.5-5.1)
[2019-10-05 06:04] VITALS: BP 162/68
--- NOTE | 2019-10-05 07:15 | NUR ---
REC'D IN BED AWAKE AND ALERT. RESP EVEN AND UNLABORED WITH NO DISTRESS NOTED. CAN EXPRES NEEDS AND WANTS. NO C/O NOTED OR VOICED. ASSESSMENT COMPLETED. C/L IN REACH AT BEDSIDE.
--- NOTE | 2019-10-05 07:30 | NUR ---
I have reviewed this patient and I concur with the Shift Assessment completed by the Licensed Practical Nurse today this shift.
--- NOTE | 2019-10-05 08:16 | TEE ---
PATIENT:ANETTE LEWIS MEDICAL RECORD: [id number] LOCATION:D.MS Page221 AGE OF PATIENT: 63 ADMISSION DATE: 09/29/19 SEX: F REFERRING PHYSICIAN: INTERPRETING PHYSICIAN: TOSHIA LEIGH MD TRANSESOPHAGEAL ECHOCARDIOGRAM Date: 10/04/19 CHRISTIAN CHARGE Y INDICATIONS: MR PREMEDICATIONS: PATIENT'S RESPONSE PROCEDURE DOPPLER MEASUREMENTS: LVIT LA PA 127 RA LVOT 73 RVOT 101 Asc. Ao 149 AV Gradient Peak 8.89 AV Mean 4.12 AV Area 1.3 MV Gradient Peak 8.12 MV Mean 1.81 MV Area INTERPRETATION: Doppler: 2-D: COLOR FLOW DOPPLER NORMAL SALINE STUDY: MISCELLANOUS: DIAGNOSIS: PLAN: Chassis Engineer:3 Dr. Almeida Alarm Mechanism Adjuster: 1 JOSEPH LACY COMMENTS: DATE OF SERVICE: 10/04/2019 PROCEDURE: Transesophageal note. SUMMARY OF PROCEDURE: After general sedation via TIVA via anesthesia, transesophageal Omniplane probe was placed in the distal esophagus and proximal stomach without difficulty. FINDINGS: LVH is present. LV internal dimension is normal. Wall motion is TRANSESOPHAGEAL ECHOCARDIOGRAM REPORT [id number] ANETTE LEWIS SD normal. EF greater than 55%. The aortic valve is tricuspid. There is no evidence of stenosis by Doppler interrogation. No more than mild AI by color flow imaging. Left atrium is dilated. Left atrial appendage is well visualized with good contractility. No evidence of thrombus. Mitral valve is well visualized, this does not appear to prolapse. No other structural abnormality. There is moderate to severe MR. Right-sided chambers are normal. There is no more than trace TR. At the end of procedure, the transesophageal Omniplane probe was turned posteriorly and this showed minimal atherosclerotic debris in the descending aorta. TRANSINT:[id number] Voice Confirmation ID: [id number] DOCUMENT ID: [id number] at 0816 CC: [id number] DICTATION DATE: 10/04/19 140 TRANSPORTATION ASSOCIATE: 10/05/19 0116 ADM IN [facility] [address] [place] [address]
[2019-10-05 08:51] LABS: MAGNESIUM - SERUM 1.6 mg/dL (1.8-2.4); PHOSPHOROUS 4.5 mg/dL (2.5-4.9)
[2019-10-05 09:47] VITALS: BP 129/72
--- NOTE | 2019-10-05 10:15 | NUR ---
C/O BACK PAIN RATING 7/10 ON PAIN SCALE WAS MEDICATED WITH OXY PER ORDERS.C/L IN REACH AT BEDSIDE.
--- NOTE | 2019-10-05 10:15 | NUR ---
WAS MEDICATED WITH OXY PER ORDERS FOR C/O BACK PAIN. C/L IN REACH AT BEDSIDE.
[2019-10-05 13:17] VITALS: BP 113/77
--- NOTE | 2019-10-05 14:11 | MORECARE ---
CASE MANAGEMENT DISCHARGE SUMMARY PATIENT: ANETTE LEWIS UNIT: [id number] ADM DATE: 09/29/19 AGE: 63 : 57 SEX: F ROOM/BED: D.2215 AUTHOR: ADILSON DUMONT PHYSICIAN: REFERRING PHYSICIAN: ADRIÁN RANDHAWA MD DATE OF SERVICE: 10/05/19 Discharge Plan Patient Name: ANETTE LEWIS [facility] [facility] 1955 Planned Disposition: Home Anticipated Discharge Date: Discharge Date: Expected LOS: Initial Reviewer: [email or web address] Initial Review Date: 10/05/2019 Generated: 10/05/19 3:11 pm DCPIA - Discharge Planning Initial Assessment Updated by [email or web address]: Fernanda Burnett on 10/05/19 2:11 pm * Is the patient Alert and Oriented? Yes * PCP KAVITA * [facility] [address] * Preadmission Environment Home with Family * ADLs Independent * Other Equipment NONE * Additional services required to return to the preadmission environment? No * Can the patient safely return to the preadmission environment? Yes * Has this patient been hospitalized within the prior 30 days at any hospital? No Patient Name: ANETTE LEWIS Page [phone] at 1411 All edits/amendments must be made on the electronic document DICTATION DATE: 10/05/19 141 PERSONAL BANKER: TITI 10/05/19 1411 RPT#: [id number] [place] DATE: STATUS: ADM IN [facility] [address] [place] [address] END OF REPORT
--- NOTE | 2019-10-05 14:20 | MORECARE ---
CASE MANAGEMENT DISCHARGE SUMMARY PATIENT: ANETTE LEWIS UNIT: [id number] ADM DATE: 09/29/19 AGE: 63 : 57 SEX: F ROOM/BED: D.2215 AUTHOR: ADILSON DUMONT PHYSICIAN: REFERRING PHYSICIAN: ADRIÁN RANDHAWA MD DATE OF SERVICE: 10/05/19 Discharge Plan Patient Name: ANETTE LEWIS Facility: [facility]:[place] : 1955 Planned Disposition: Home Anticipated Discharge Date: Discharge Date: Expected LOS: Initial Reviewer: [email or web address] Initial Review Date: 10/05/2019 Generated: 10/05/19 3:19 pm Comments DCP- Discharge Planning Updated by [email or web address]: Fernanda Burnett on 10/05/19 1:[address] Patient Name: ANETTE LEWIS Admission Status: ER Accout number: [id number] Admission Date: 09-29-2019 : 1955 Admission Diagnosis:HYPERTENSIVE HEART DISEASE WITH HEART FAILURE Attending: ADRIÁN RANDHAWA Current LOS: 6 Anticipated DC Date: Planned Disposition: Home Primary Insurance: MEDICARE A & B Discharge Planning Comments: CM met with patient at bedside after explaining CM role and obtaining verbal consent. CM discussed availability / needs of home health, REHAB and medical equipment. PATIENT DENIES ANY DISCHARGE NEEDS. IMM SIGNED. STATES DAUGHTER WILL COLLECTION OFFICER WHEN DISCHARGED. Master Merchandiser: Fernanda Burnett DCPIA - Discharge Planning Initial Assessment Updated by [email or web address]: Fernanda Burnett on 10/05/19 2:12 pm * Is the patient Alert and Oriented? Yes * PCP KAVITA * Pharmacy [facility] [address] * Preadmission Environment Home with Family * ADLs Independent * Other Equipment NONE * Additional services required to return to the preadmission environment? No * Can the patient safely return to the preadmission environment? Yes * Has this patient been hospitalized within the prior 30 days at any hospital? No Coverage Notice Reviewer: [email or web address] - Fernanda Burnett Notice Issued Date-Time: 10/05/2019 14:15 Notice Type: IM Discharge Notice Notice Delivered To: Patient Relationship to Patient: Client Service Consultant Name: Delivery Method: HAND - Hand Delivered Criselda Days: Prior Verbal Notification: Recipient Understood Notice: Yes Recipient Signature: Yes Med Rec Note Co-signed by Attending: Coverage Notice Comment: Last DP export: 10/05/19 1:12 pm Patient Name: ANETTE LEWIS Page [phone] at 1420 All edits/amendments must be made on the electronic document DICTATION DATE: 10/05/191418 BODY PRESSER: TITI 10/05/191418 RPT#: [id number] DC DATE: STATUS: ADM IN [facility] [address] [place] [address] END OF REPORT
--- NOTE | 2019-10-05 14:27 | NUR ---
WAS MEDICATED WITH MORPHINE AT THIS TIME FOR C/O BACK PAIN PER ORDERS. C/L IN REACH AT BEDSIDE.
[2019-10-05 17:29] VITALS: BP 161/69
[2019-10-05 18:08] LABS: UPE RAND - ALBUMIN 26.1 % (()); UPE RAND - ALPHA 1 GLOBULIN 21.6 % (()); UPE RAND - ALPHA 2 GLOBULIN 21.2 % (()); UPE RAND - BETA GLOBULIN 20.2 % (()); UPE RAND - GAMMA GLOBULIN 10.9 % (())
--- NOTE | 2019-10-05 18:45 | NUR ---
I have reviewed this patient and I concur with the Shift Assessment completed by the Licensed Practical Nurse today this shift.
[2019-10-05 20:00] VITALS: BP 160/72
--- NOTE | 2019-10-06 | NUR ---
IV TO LEFT FOREARM INFILTRATED. SURROUNDING SKIN IS RED, EDEMATOUS, AND TENDER. DCd WITH CATH INTACT. RESITED TO RIGHT FOREARM, 1ST ATTEMPT. 20G. TOLERATED WELL. NO FURTHER NEEDS AT THIS TIME.
--- NOTE | 2019-10-06 02:57 | NUR ---
I have reviewed this patient and I concur with the Shift Assessment completed by the Licensed Practical Nurse today this shift.
[2019-10-06 04:00] VITALS: BP 126/67
[2019-10-06 04:30] LABS: BASOPHILS 0.7 % (0-2); EOSINOPHILS 3.6 % (0-7); HEMATOCRIT 26.9 % (36.0-48.0); HEMOGLOBIN 8.5 g/dL (12-16); IMMATURE GRANULOCYTES 0.3 % (0-5); LYMPHOCYTES 36.1 % (15-50); MCH 27.9 pg (26.0-34.0); MCHC 31.6 g/dL (31.0-37.0); MCV 88.2 fL (80.0-100.0); MEAN PLATELET VOLUME 9.4 fL (7.4-10.4); MONOCYTES 12.8 % (2-11); NEUTROPHILS 46.5 % (40-80); PLATELET COUNT 200 10x3/uL (130-400); RBC 3.05 10x6/uL (4.00-5.40); RDW 16.2 % (11.5-14.5); WBC 3.1 10x3/uL (4.8-10.8)
[2019-10-06 04:50] LABS: ALBUMIN 2.8 g/dL (3.4-5.0); BILIRUBIN - TOTAL 0.26 mg/dL (0.2-1.3); CALCIUM 7.9 mg/dL (8.5-10.1); MAGNESIUM - SERUM 1.5 mg/dL (1.8-2.4); PROTEIN - SERUM 5.4 g/dL (6.4-8.2)
[2019-10-06 04:52] LABS: ANION GAP 10.1 mmol/L (8-16); CARBON DIOXIDE 32.9 mmol/L (21.0-32.0); CREATININE - SERUM 1.9 mg/dL (0.6-1.3); PHOSPHOROUS 2.7 mg/dL (2.5-4.9)
[2019-10-06 09:25] LABS: INR 1.08 (0.85-1.17)
[2019-10-06 09:28] VITALS: BP 134/62
--- NOTE | 2019-10-06 09:40 | NUR ---
OFF FLOOR AT THIS TIME TO SPECIALS FOR PROCEDURE. STABLE CONDITION UPON DEPARTURE.
[2019-10-06 13:20] VITALS: BP 153/64
[2019-10-06 16:45] VITALS: BP 137/70
--- NOTE | 2019-10-06 17:28 | NUR ---
I have reviewed this patient and I concur with the Shift Assessment completed by the Licensed Practical Nurse today this shift.
--- NOTE | 2019-10-06 19:30 | NUR ---
PT IN BED, AAO X 3, RESP EVEN AND UNLABORED. NO DISTRESS NOTED, CL IN REACH, SR UP X 2.
[2019-10-06 20:00] VITALS: BP 154/67
[2019-10-07] VITALS (13 sets, daily range): BP systolic 120–158; BP diastolic 53–71
--- NOTE | 2019-10-07 03:55 | NUR ---
I have reviewed this patient and I concur with the Shift Assessment completed by the Licensed Practical Nurse today this shift.
[2019-10-07 05:41] LABS: BASOPHILS 0.7 % (0-2); EOSINOPHILS 5.1 % (0-7); HEMATOCRIT 26.9 % (36.0-48.0); HEMOGLOBIN 8.3 g/dL (12-16); IMMATURE GRANULOCYTES 0.3 % (0-5); LYMPHOCYTES 28.5 % (15-50); MCH 27.8 pg (26.0-34.0); MCHC 30.9 g/dL (31.0-37.0); MEAN PLATELET VOLUME 9.8 fL (7.4-10.4); MONOCYTES 13.6 % (2-11); NEUTROPHILS 51.8 % (40-80); PLATELET COUNT 209 10x3/uL (130-400); RBC 2.99 10x6/uL (4.00-5.40); RDW 16.3 % (11.5-14.5)
[2019-10-07 06:26] LABS: ALBUMIN 2.9 g/dL (3.4-5.0); ANION GAP 11.7 mmol/L (8-16); BILIRUBIN - TOTAL 0.28 mg/dL (0.2-1.3); CALCIUM 8.1 mg/dL (8.5-10.1); CARBON DIOXIDE 29.2 mmol/L (21.0-32.0); CREATININE - SERUM 1.5 mg/dL (0.6-1.3); MAGNESIUM - SERUM 1.5 mg/dL (1.8-2.4); PHOSPHOROUS 2.7 mg/dL (2.5-4.9); POTASSIUM - SERUM 3.9 mmol/L (3.5-5.1); PROTEIN - SERUM 5.5 g/dL (6.4-8.2)
--- NOTE | 2019-10-07 08:00 | NUR ---
ALERT AND ORIENTED X4. LEFT NEPHROSTOMY TUBE INTACT. IV TO RT. F/A WITH IVF INFUSING AT PRESCRIBED RATE WITH NO S/S OF INFECTION/INFILTRATION. LUNGS CTA AND HRRR. DENIES ANY PAIN OR DISCOMFORT AT THIS TIME. ENCOURAGED TO USE CALL LIGHT FOR ASSSIT.
[2019-10-07 09:45] LABS: INR 1.08 (0.85-1.17)
[2019-10-07 13:39] LABS: % SATURATION 15 % (15-55); IRON 29 ug/dl (35-150); TOTAL IRON BIND CAPACITY 192 ug/dl (260-445); UNSAT IRON BIND CAPACITY 163 ug/dl (150-375)
[2019-10-07 13:51] LABS: FERRITIN 210 ng/mL (3-244); LDH 170 U/L (81-234)
--- NOTE | 2019-10-07 14:49 | NUR ---
REPORT CALLED TO VALENTÍN BONNER RN REGARTING PATIENT BEING TRANSFERED TO CVICU 4.
[2019-10-07 15:47] LABS: HEMATOCRIT 28.7 % (36.0-48.0)
--- NOTE | 2019-10-07 18:45 | NUR ---
1500-RECIEVED PT FROM SPECIALS-ACCOMPANIED BY RN-NOTED R GROIN CORDIS IN PLACE AND SET AT 75ML/- DIRECTED BY DR BALDWIN-HARRISON CATH 16FR PLACED-HEMATURIA -DR BALDWIN AWARE-TOLERATED WELL BY PT 1514-STATED BACK PAIN 01/08-MORPHINE 2MG IVP GIVEN- 1544-STATES NO IMPROVEMENT IN PAIN LEVEL-DR WALLS NOTIFIED OF SAME-1600T AND CROSS REPEATED -STAT HGB/HCT CWON-[id number]-MUHUUVKM BROUGHT TO BEDSIDE-OK'D THROUGH NURSING ADMINISTRATION-PROTOCOL MAINTAINED-PT TEARFUL WITH LEVEL OF PAIN-11/0887-FOYILFKVMWQA-OIFYFDHL 10 PO XPPOR-[id number]-XD STATES EXPERIENCING RELIEF OF PAIN -09/08-PRBC STARTED VIA L WRIST
--- NOTE | 2019-10-07 19:00 | NUR ---
PT ASSESSMENT COMPLETED AT THIS TIME, NO CHANGES NOTED FROM NURSE REPORT, PT IS AAOX4 IN BED WATCHING TV, RESP EVEN AND NON-LABORED, PULSES 1+ TO RLE, AND 2+ NOTED IN OTHER EXT. PT C/O BACK PAIN, BLOOD NOTED IN F/C, RIGHT GROIN SITE CDI, NO BLEEDING NOTED
--- NOTE | 2019-10-07 21:34 | NUR ---
PT C/O PAIN, PRN MED GIVEN AT THIS TIME, WILL MONITOR FOR IMPROVEMENT
--- NOTE | 2019-10-07 23:00 | NUR ---
PT REASSESSMENT COMPLETED AT THIS TIME, NO CHANGES NOTED FROM PREVIOUS EXAM, VSS, WILL MONITOR FOR CHANGES
[2019-10-08] VITALS (24 sets, daily range): BP systolic 123–174; BP diastolic 52–81
--- NOTE | 2019-10-08 01:00 | NUR ---
PT RESTING WITH EYES CLOSED, RESP EVEN AND NON LABORED, VSS, NO DISTRESS NOTED
[2019-10-08 02:39] LABS: LYMPHOCYTES 16.6 % (15-50); MCH 28.4 pg (26.0-34.0); MCHC 32.9 g/dL (31.0-37.0); MEAN PLATELET VOLUME 10.1 fL (7.4-10.4); NEUTROPHILS 65.2 % (40-80); PLATELET COUNT 195 10x3/uL (130-400); RDW 16.7 % (11.5-14.5)
[2019-10-08 02:41] LABS: HEMATOCRIT 35.9 % (36.0-48.0); HEMOGLOBIN 11.8 g/dL (12-16); MCV 86.5 fL (80.0-100.0); RBC 4.15 10x6/uL (4.00-5.40); WBC 4.9 10x3/uL (4.8-10.8)
[2019-10-08 02:54] LABS: BILIRUBIN - TOTAL 1.18 mg/dL (0.2-1.3); CARBON DIOXIDE 26.8 mmol/L (21.0-32.0); CREATININE - SERUM 1.4 mg/dL (0.6-1.3); MAGNESIUM - SERUM 1.4 mg/dL (1.8-2.4); PHOSPHOROUS 2.5 mg/dL (2.5-4.9); POTASSIUM - SERUM 3.8 mmol/L (3.5-5.1); PROTEIN - SERUM 5.9 g/dL (6.4-8.2)
--- NOTE | 2019-10-08 03:00 | NUR ---
PT REASSESSEMENT COMPLETED AT THIS TIME, NO CHANGES NOTED FROM PREVIOUS EXAM, VSS
--- NOTE | 2019-10-08 05:18 | NUR ---
PT REQUESTED SOMETHING FOR PAIN, PRN MORPHINE GIVEN AT THIS TIME
--- NOTE | 2019-10-08 06:40 | NUR ---
PT GIVEN CHG BATH AND CVL DRESSING COMPLETED AT THIS TIME
--- NOTE | 2019-10-08 08:02 | NUR ---
RECIEVED AWAKE AND ALERT-NPO FOR PENDING IR [id number] DULL ACHE-/10-IN LOWER PELVIS AREA-MORPHINE 2MG IVP GIVEN-LAB DRAWN-PT RESTING QUIETLY-R GROIN CORDIS IN SITU -NO HEMATOMA NOTED-PEDAL PULSES WEAK BILATERAL
[2019-10-08 08:17] LABS: HEMATOCRIT 35.7 % (36.0-48.0)
--- NOTE | 2019-10-08 09:49 | NUR ---
FOUND PT SITTING UP AT SIDE OF BED-STATED NURSE THAT JUST ROUNDED TOLD ME THAT THEY DIDN'T HAVE ANYTHING LEFT TO DO -ASSISTED TO SUPINE AND REMINDED PT STILL HAS SHEATH IN RIGHT GROIN AND PLAN IS TO RETURN TO IR FOR REMOVAL AND CHECK OF KIDNEY-STRESSED Kavitha CABRERA IS ELECTRONIC SCALE TESTER FOR DR MERCEDES AND THE KIDNEY FUNCTION IS IMPROVING -PT STATED THAT SHE GOT CONFUSED REGARDING WHAT THE PLANS WERE FOR THE DAY--UNKNOWN TIME WHEN SCHEDULED FOR PROCEDURE
--- NOTE | 2019-10-08 11:25 | NUR ---
1045-DR WALLS AT BEDSIDE-STATUS REPORT GIVEN TO PT AND POSSIBLE COURSE OF ACTION-REMOVED NPO-AM MEAL GIVEN TO PT AND PO MEDS-REQUIRES FREQUENT REMINDER TO KEEP R LEG STRAIGHT-HEMATURIA CONTINUES-LIGHT PINK TINGE
[2019-10-08 15:17] LABS: HEMATOCRIT 33.5 % (36.0-48.0); HEMOGLOBIN 11.3 g/dL (12-16)
--- NOTE | 2019-10-08 15:20 | NUR ---
1230-DR MANNING AT BEDSIDE-STATUS REPORT GIVEN -ORDERS RECIEVED AND NOTED- MORPHINE 4MG IVP GIVEN PREMED R FEM SHEATH REMOVED PER PROTOCOL AND PROCEDURE-HEMOSTASIS MAINTAINED--PPP NO HEMATOMA-BEDREST [id number]-NO [id number]-NO HEMATOMA-99 1400-NO [id number]-FYR-6309-NO HEMATOM [id number]-[id number] -FOUND PT CLIMBING OUT OF BED-STOPPED SAME-ASSISTED BACK TO SUPINE-STATED SHE NEEDED TO PEE-CATHETER STRAIGHTENED-MILKED BLOOD CLOT OUT OF TUBING
--- NOTE | 2019-10-08 15:30 | NUR ---
DR BARTLETT AT BEDSIDE-SPOKE WITH PT REGARDING STATUS-AND PLAN-R GROIN NO HEMATOMA
--- NOTE | 2019-10-08 18:05 | NUR ---
1550-R GROIN -NO HEMATOMA AND SOFT TO TOUCH-NOTED LARGE AMOUNTS OF URINE AROUND CATHETER-WITH BLOOD CLOT IN TUBING-CATHETER REMOVED PER PROTOCOL AND BLOCAKAGE-PT AMBULTATED EASILY TO TOILET-PASSED URINE WITHOUT DIFFICULTY-RED TINGED-REQUESTED CATHETER TO REMAIN OUT-ASSISTED TO BEDSIDE CHAIR FOR DINNER TRAY 1700-AMBULATED TO TOILET-STATED PAINFUL TO VOID 1730-C/O OF ANXIETY-SEE EMAR RECORD
--- NOTE | 2019-10-08 19:00 | NUR ---
PT ASSESSMENT COMPLETED AT THIS TIME, NO CHANGES NOTED FROM NURSE REPORT, VSS, WILL MONITOR FOR CHANGES
[2019-10-08 20:32] LABS: HEMATOCRIT 35.3 % (36.0-48.0); HEMOGLOBIN 11.8 g/dL (12-16)
--- NOTE | 2019-10-08 21:28 | NUR ---
PT GIVEN PM MEDS AT THIS TIME, PT DENIES ANY NEEDS AT THIS TIME
--- NOTE | 2019-10-08 23:00 | NUR ---
PT REASSESSMENT COMPLETED AT THIS TIME, NO CHANGES NOTED FROM PREVIOUS EXAM, VSS, WILL MONITOR FOR CHANGES
[2019-10-09] VITALS (13 sets, daily range): BP systolic 102–159; BP diastolic 42–83
--- NOTE | 2019-10-09 01:00 | NUR ---
PT RESTING WITH EYES CLOSED, RESP EVEN AND NON LABORED, VSS
--- NOTE | 2019-10-09 03:00 | NUR ---
PT REASSESSMENT COMPLETED AT THIS TIME, NO CHANGES NOTED FROM PREVIOUS EXAM, VSS
--- NOTE | 2019-10-09 05:26 | NUR ---
PT REQUESTING SOMETHING ELSE FOR PAIN DUE TO SHARP PAIN WHEN SHE VOIDS AND AFTER, PRN PAIN MED GIVEN AT THIS TIME
[2019-10-09 05:55] LABS: HEMATOCRIT 32.3 % (36.0-48.0); HEMOGLOBIN 10.9 g/dL (12-16); LYMPHOCYTES 11.9 % (15-50); MCH 29.2 pg (26.0-34.0); MCHC 33.7 g/dL (31.0-37.0); MCV 86.6 fL (80.0-100.0); MEAN PLATELET VOLUME 10.3 fL (7.4-10.4); NEUTROPHILS 74.7 % (40-80); PLATELET COUNT 202 10x3/uL (130-400); RBC 3.73 10x6/uL (4.00-5.40); RDW 16.1 % (11.5-14.5)
[2019-10-09 05:56] LABS: WBC 6.7 10x3/uL (4.8-10.8)
[2019-10-09 06:18] LABS: ALBUMIN 2.9 g/dL (3.4-5.0); ANION GAP 14.1 mmol/L (8-16); BILIRUBIN - TOTAL 0.8 mg/dL (0.2-1.3); CALCIUM 8.4 mg/dL (8.5-10.1); CARBON DIOXIDE 23.4 mmol/L (21.0-32.0); CREATININE - SERUM 1.3 mg/dL (0.6-1.3); MAGNESIUM - SERUM 1.5 mg/dL (1.8-2.4); PHOSPHOROUS 2.6 mg/dL (2.5-4.9); POTASSIUM - SERUM 3.5 mmol/L (3.5-5.1); PROTEIN - SERUM 5.9 g/dL (6.4-8.2)
--- NOTE | 2019-10-09 07:59 | NUR ---
0730-RECIEVED AWAKE -RETURNING SELF TO BED FROM COMMODE CHAIR-NOTED BLOOD TYPE URINE-PT STATED CRAMPING PAIN LESS-IV IN L FOREARM INTACT-CABLES TO MONITOR-PLAN TO PLACE ON TELEMETRY TO PREVENT ACCIDENTAL FALL
--- NOTE | 2019-10-09 14:22 | NUR ---
1230-DR WESTBROOK AT BEDSIDE-PT VOCALIZED REGARDING SEVERE PAIN WITH URINATION- ORDER RECIEVED AND NOTED 1400-ATTEMPTED TO GIVE PYRIDIUM FOR CONTINUED SHARP PAIN WITH URINATION-REFUSED MED AND STATED THAT IS AZO-CAUSES SEVERE GASTRIC/STOMACHE UPSET
--- NOTE | 2019-10-09 15:37 | NUR ---
PT ARRIVED VIA WHEELCAIR TO ROOM, ALERT AND ORIENTED, UP WITHOUT ASSISTANCE. WITNESSED TAKING SELF TO THE BATHROOM SOON AFTER ARRVIVNG. CL INR EACH, SRX2.
--- NOTE | 2019-10-09 18:02 | NUR ---
SUCTIONED PT, RESPERTIRATORY THERAPY GAVE OK. NO TOHER COMPLAINTS OR CONCERNS AT THIS TIME. CL IN REACH, SRX2
--- NOTE | 2019-10-09 19:23 | NUR ---
RECEIVED UP IN BED WITH EYESOPEN AND TV ON. ALERT AND ORIENTED X4. UP AD COREY TO B/R. IV TO RT FA WITH PLASMOLYTE INFUSING AT 75CC/HR. DSG TO LLBACK CDI. DENIES ANY NEEDS AT THIS TIME.
[2019-10-10 00:01] VITALS: BP 122/61
[2019-10-10 05:16] LABS: HEMATOCRIT 29.6 % (36.0-48.0); HEMOGLOBIN 9.8 g/dL (12-16); LYMPHOCYTES 22.1 % (15-50); MCH 28.7 pg (26.0-34.0); MCHC 33.1 g/dL (31.0-37.0); MCV 86.8 fL (80.0-100.0); MEAN PLATELET VOLUME 10.6 fL (7.4-10.4); PLATELET COUNT 217 10x3/uL (130-400); RBC 3.41 10x6/uL (4.00-5.40); RDW 15.7 % (11.5-14.5)
[2019-10-10 05:25] LABS: ALBUMIN 2.5 g/dL (3.4-5.0); ANION GAP 11.9 mmol/L (8-16); BILIRUBIN - TOTAL 0.39 mg/dL (0.2-1.3); CALCIUM 8.3 mg/dL (8.5-10.1); CARBON DIOXIDE 27.5 mmol/L (21.0-32.0); CREATININE - SERUM 1.4 mg/dL (0.6-1.3); POTASSIUM - SERUM 3.4 mmol/L (3.5-5.1); PROTEIN - SERUM 5.5 g/dL (6.4-8.2)
[2019-10-10 05:28] LABS: WBC 4.7 10x3/uL (4.8-10.8)
--- NOTE | 2019-10-10 07:06 | NUR ---
PT AWAKE AND ORIENTED WHEN WE ENTERED THE ROOM FOR BEDSIDE. C/O OF NOT HAVING A BM FOR FOUR DAYS, BUT STATES THAT SHE STARTED GOING A LITTLE THIS MONRING. WILL PROVIDE ONE OF HER PRN BM TX THIS MORNING WITH MORNING MEDICATIONS TO FURTHER ASSIST. NO OTHER COMPLAINTS OR CONCERNS STATED AT THIS TIME. ALL QUESTIONS ANSWERED THE BEST OF MY ABILITY. CL IN REACH, SRX2 .
--- NOTE | 2019-10-10 08:31 | NUR ---
PT AWAKE AND ORIENTED, TOOK MEDICATIONS WITHOUT COMPLICATIONS. ADMINSTERED PAIN MEDS AND PRN STOOL SOFTNER. PT REFUSES PYRIDIUM STATING IF SHE TAKES IT FOR A COUPLE DAYS IT WILL MAKE HER SICK. CL IN REACH, SRX2.
[2019-10-10 09:09] VITALS: BP 149/57
--- NOTE | 2019-10-10 10:18 | NUR ---
SPOKE WITH DR. KERN, SHE STATED THAT D/T THE SCANNER BEING DOWN FOR IR, CALL DR. WALLS AND ASK TO D/C. [facility] BUT WE NEED TO SET UP A DATE FOR THE BIOPSY.
[2019-10-10 12:00] VITALS: BP 130/54
--- NOTE | 2019-10-10 13:28 | NUR ---
Nutrition Follow-up: Pt reports good appetite. Ate majority of breakfast this AM. Diet: Regular PO intake: 50-100% Wt: 98# (10/09); 102.5# (10/07 - bedscale); 115.4# (10/03 - standing) Last BM: 10/06 per pt Labs noted: K+ 3.4, Ca 8.3, Alb 2.5 Meds noted: Milk of Magnesia, KCl, Pepcid, Carafate -Encourage PO intake and honor food preferences within diet restrictions. -Offer nutrition supplements. -Noted large wt changes; rec standing wt if able. -RD following.
--- NOTE | 2019-10-10 14:56 | NUR ---
PT IS VERY ANXIOUS TO LEAVE, SPOKE TO DR. PEREZ NURSE TWICE, OFFERING TO PUT THE D/C IN IF HE WOULD JUST REVIEW THE MEDICATIONS. EXPLAINED TO PT THAT ALL I'M WATING ON IS HIS D/C ORDER. SPOKE TO RENAL TAO LEIJA AND SHE STATED THEY WERE CLEAR FROM A RENAL STANDPOINT, TO JUST HAVE THE PT F/U IN A COUPLE WEEKS OP. INFROMED PT, SHE IS STILL YARED TO LEAVE. CL IN REACH, SRX2.
--- NOTE | 2019-10-10 15:28 | NUR ---
PT EXPRESSES CONCERNS ABOUT BENG ABLE TO FIND A RIDE HOME. STATES HER DAUGHTER CAN GET HER BUT IT SHES VERY BUSY. PT IS FRUSTRATED BY LACK OF D/C ORDER. BG WHITNEY, SRX2.
--- NOTE | 2019-10-11 07:57 | MORECARE ---
CASE MANAGEMENT DISCHARGE SUMMARY PATIENT: ANETTE LEWIS UNIT: [id number] ADM DATE: 09/29/19 AGE: 63 : [birth year] SEX: F ROOM/BED: D.4678 AUTHOR: ADILSON DUMONT PHYSICIAN: REFERRING PHYSICIAN: ADRIÁN RANDHAWA MD DATE OF SERVICE: 10/11/19 Discharge Plan Patient Name: ANETTE LEWIS Facility: [facility]:[place] : 1955 Planned Disposition: Home Anticipated Discharge Date: Discharge Date: 10/10/2019 Expected LOS: Initial Reviewer: [id number] Initial Review Date: 10/05/2019 Generated: 10/11/19 8:57 am Comments DCP- Discharge Planning Updated by [email or web address]: Fernanda Burnett on 10/05/19 1:[address] Patient Name: ANETTE LEWIS Admission Status: ER Accout number: [id number] Admission Date: 09-29-2019 : 1955 Admission Diagnosis:HYPERTENSIVE HEART DISEASE WITH HEART FAILURE Attending: ADRIÁN RANDHAWA Current LOS: 6 Anticipated DC Date: Planned Disposition: Home Primary Insurance: MEDICARE A & B Discharge Planning Comments: CM met with patient at bedside after explaining CM role and obtaining verbal consent. CM discussed availability / needs of home health, REHAB and medical equipment. PATIENT DENIES ANY DISCHARGE NEEDS. IMM SIGNED. STATES DAUGHTER WILL PSYCHOLOGICAL ASSISTANT WHEN DISCHARGED. Assembler Garment Form: Fernanda Burnett DCPIA - Discharge Planning Initial Assessment Updated by [email or web address]: Fernanda Burnett on 10/05/19 2:12 pm * Is the patient Alert and Oriented? Yes * PCP KAVITA * Pharmacy [facility] [address] * Preadmission Environment Home with Family * ADLs Independent * Other Equipment NONE * Additional services required to return to the preadmission environment? No * Can the patient safely return to the preadmission environment? Yes * Has this patient been hospitalized within the prior 30 days at any hospital? No Coverage Notice Reviewer: [id number] - Fernanda Burnett Notice Issued Date-Time: 10/05/2019 14:15 Notice Type: IM Discharge Notice Notice Delivered To: Patient Relationship to Patient: Inspector Open Die Name: Delivery Method: HAND - Hand Delivered Criselda Days: Prior Verbal Notification: Recipient Understood Notice: Yes Recipient Signature: Yes Med Rec Note Co-signed by Attending: Coverage Notice Comment: Last DP export: 10/05/19 1:20 pm Patient Name: ANETTE LEWIS Page [phone] at 0757 All edits/amendments must be made on the electronic document DICTATION DATE: 10/11/19 0757 COMPUTER DISCOVERY TEACHER: TITI 10/11/19 0757 RPT#: [id number] DC DATE:10/10/19 STATUS: DIS IN [facility] [address] [place] [address] END OF REPORT
== END 2019-10-10 18:00 | disposition home or self-care (01) | DRG 659 ==
LOC: D.ER 20:51 → D.MS 22:13 → D.M2 22:13 → D.MS 10-05 21:52 → D.CVICU 10-07 14:50 → D.M2 10-09 15:29
PROVIDERS: Family Medicine; General Practice; Internal Medicine Hematology & Oncology; Internal Medicine Nephrology; Radiology Vascular & Interventional Radiology; Specialist; Urology; ADMIT Family Medicine; ATTEND Family Medicine
PROC: BT1F1ZZ Fluoroscopy of Left Kidney, Ureter and Bladder using Low Osmolar Contrast (ICD-10-PCS; 2019-10-04)
PROC: 0T913ZZ Drainage of Left Kidney, Percutaneous Approach (ICD-10-PCS; 2019-10-04)
PROC: 0T773DZ Dilation of Left Ureter with Intraluminal Device, Percutaneous Approach (ICD-10-PCS; 2019-10-04)
PROC: 0T768DZ Dilation of Right Ureter with Intraluminal Device, Via Natural or Artificial Opening Endoscopic (ICD-10-PCS; principal; 2019-10-04 09:00)
DX: N17.9 Acute kidney failure, unspecified (principal); I50.31 Acute diastolic (congestive) heart failure; I11.0 Hypertensive heart disease with heart failure; N13.30 Unspecified hydronephrosis; I25.10 Atherosclerotic heart disease of native coronary artery without angina pectoris; K21.9 Gastro-esophageal reflux disease without esophagitis; J44.9 Chronic obstructive pulmonary disease, unspecified; E03.9 Hypothyroidism, unspecified

== ENCOUNTER → 2019-12-09 08:15 | Outpatient (CLI) | payer MEDICARE ==
[2019-09-30 16:38] VITALS: BMI 19.3
[~2019-12-09 08:15] MED LIST changes: +UNITHROID150 MCG PO
[2019-12-09 09:41] LABS: CREATININE - SERUM 1.2 mg/dL (0.6-1.3)
== END | disposition home or self-care (01) ==
LOC: D.CT 08:00
PROVIDERS: Specialist; ATTEND Family Medicine
DX: N17.9 Acute kidney failure, unspecified (principal)

== ENCOUNTER → 2020-01-10 00:01 | Outpatient (CLI) | payer MEDICARE ==
[2019-09-30 16:38] VITALS: BMI 19.3
[~2020-01-10 00:01] MED LIST changes: +CIPRO500 MG PO
== END | disposition home or self-care (01) ==
LOC: D.LABREF 00:01
PROVIDERS: ATTEND Urology
DX: R31.9 Hematuria, unspecified (principal); R82.90 Unspecified abnormal findings in urine

== ENCOUNTER 2020-01-12 06:50 | Day surgery (SDC) | payer MEDICARE ==
[2020-01-11 14:23] LABS: BASOPHILS 0.8 % (0-2); EOSINOPHILS 5.7 % (0-7); HEMATOCRIT 32.9 % (36.0-48.0); HEMOGLOBIN 10.4 g/dL (12-16); IMMATURE GRANULOCYTES 0.4 % (0-5); LYMPHOCYTES 30.3 % (15-50); MCH 25.7 pg (26.0-34.0); MCHC 31.6 g/dL (31.0-37.0); MCV 81.4 fL (80.0-100.0); MEAN PLATELET VOLUME 9.6 fL (7.4-10.4); MONOCYTES 9.3 % (2-11); NEUTROPHILS 53.5 % (40-80); PLATELET COUNT 251 10x3/uL (130-400); RBC 4.04 10x6/uL (4.00-5.40); RDW 14.2 % (11.5-14.5)
[2020-01-11 14:37] LABS: APTT 35.2 SECONDS (22.8-39.4); INR 1.01 (0.85-1.17); PROTIME 13.3 SECONDS (11.6-15.0)
[2020-01-11 14:48] LABS: ANION GAP 11.8 mmol/L (8-16); CALCIUM 8.5 mg/dL (8.5-10.1); CARBON DIOXIDE 27.5 mmol/L (21.0-32.0); POTASSIUM - SERUM 3.3 mmol/L (3.5-5.1)
[~2020-01-12] VITALS: Ht 167.6 cm; Wt 53.1 kg
--- NOTE | ~2020-01-12 | OP ---
PATIENT NAME: ANETTE LEWIS MEDICAL RECORD: [id number] :[birth year] LOCATION:[facility] ADMISSION DATE: SURGEON: FRANK THOMPSON MD DATE OF OPERATION: 01/12/2020 SURGEON: Frank Thompson MD ANESTHESIA: General anesthesia. DIAGNOSIS: Bilateral hydronephrosis. PROCEDURES: Cystoscopy and bilateral ureteral stent exchange. BLOOD LOSS: None. CLINICAL HISTORY: This is a 64-year-old female, who has bilateral hydronephrosis. She has been using ureteral stents. These need to be changed due to infection. She is on antibiotics. DESCRIPTION OF PROCEDURE: She was given induction of general anesthesia. She was placed in the dorsal lithotomy position and prepped and draped. A 21-[place] cystoscope with 30-degree lens was used for visualization. The old stents were seen. They were removed using grasping forceps. Bilateral retrograde pyelograms were performed using diluted contrast delivered via a 5-[place] open-ended ureteral catheter. Ureteral stenosis was still seen. A Sensor wire was placed into the left ureteral orifice up into the renal pelvis. Over the wire, we inserted a 6-[place] x 24 cm ureteral stent. Once the stent was in correct position, the wire was withdrawn entirely. The distal end of the stent was pushed in using a pusher. The string on the distal end of the stent was removed. The same procedure was done on the right side. The patient's bladder was then emptied through the cystoscope sheath and the scope was removed. The patient was awakened and brought to recovery room. TRANSINT:[id number] Voice Confirmation ID: [id number] DOCUMENT ID: [id number] FRANK THOMPSON MD CC: [id number] DICTATION DATE: 02/09/20 1350 LEAD SOFTWARE ENGINEER: 02/09/20 1423 [facility] 01/12/20 [id number] [place] [address]
[2020-01-12 07:31] VITALS: BP 117/56; Ht 167.6 cm; Wt 53.1 kg
--- NOTE | 2020-01-12 11:00 | NUR ---
PT DC INSTRUCTIONS REVIEWED AT THIS TIME, PT VERBALIZES UNDERSTANDING. PT IV REMOVED THIS TIME, INTACT, NO REDNESS OR SWELLING NOTED AT SITE.
--- NOTE | 2020-01-12 11:31 | NUR ---
PT LEAVING OPS AT THIS TIME VIA WC, NAD NOTED.
== END 2020-01-12 11:31 | disposition home or self-care (01) ==
LOC: D.OPS 06:50 → D.PAN 08:45 → D.OPS 11:31
PROVIDERS: Anesthesiology; ATTEND Urology
DX: N13.30 Unspecified hydronephrosis (principal); N30.00 Acute cystitis without hematuria; N13.5 Crossing vessel and stricture of ureter without hydronephrosis; E03.9 Hypothyroidism, unspecified; I10 Essential (primary) hypertension; K21.9 Gastro-esophageal reflux disease without esophagitis; Z72.0 Tobacco use

== ENCOUNTER 2020-02-10 07:50 | Outpatient (CLI) | payer MEDICARE ==
[~2020-02-10] VITALS: Ht 167.6 cm; Wt 53.6 kg
[2020-02-10 08:34] VITALS: BP 110/44; Ht 167.6 cm; Wt 53.6 kg
== END 2020-02-10 13:21 | disposition home or self-care (01) ==
LOC: D.OPS 07:50
PROVIDERS: ATTEND Family Medicine
DX: D64.9 Anemia, unspecified (principal)

== ENCOUNTER 2020-02-16 07:50 | Day surgery (SDC) | payer MEDICARE ==
[~2020-02-16] VITALS: Ht 167.6 cm; Wt 54.1 kg
[2020-02-16 08:27] LABS: CALCIUM 8.8 mg/dL (8.5-10.1); CARBON DIOXIDE 24.1 mmol/L (21.0-32.0); CREATININE - SERUM 1.3 mg/dL (0.6-1.3); POTASSIUM - SERUM 4.1 mmol/L (3.5-5.1)
[2020-02-16 08:30] LABS: INR 1.02 (0.85-1.17); PROTIME 13.4 SECONDS (11.6-15.0)
[2020-02-16 08:31] LABS: APTT 35.7 SECONDS (22.8-39.4)
[2020-02-16 09:01] LABS: BASOPHILS 0.6 % (0-2); HEMATOCRIT 33.1 % (36.0-48.0); HEMOGLOBIN 10.2 g/dL (12-16); IMMATURE GRANULOCYTES 0.6 % (0-5); LYMPHOCYTES 22.4 % (15-50); MCH 23.5 pg (26.0-34.0); MCHC 30.8 g/dL (31.0-37.0); MCV 76.3 fL (80.0-100.0); MEAN PLATELET VOLUME 10.4 fL (7.4-10.4); MONOCYTES 9.4 % (2-11); PLATELET COUNT 252 10x3/uL (130-400); RBC 4.34 10x6/uL (4.00-5.40); RDW 17.9 % (11.5-14.5); WBC 5.4 10x3/uL (4.8-10.8)
[2020-02-16 09:28] VITALS: Ht 167.6 cm; Wt 54.1 kg
== END 2020-02-16 11:20 | disposition home or self-care (01) ==
LOC: D.CT 07:50
PROVIDERS: Specialist; ATTEND Family Medicine
DX: K68.9 Other disorders of retroperitoneum (principal); D50.9 Iron deficiency anemia, unspecified; Z68.1 Body mass index [BMI] 19.9 or less, adult; I10 Essential (primary) hypertension; N17.9 Acute kidney failure, unspecified; I25.10 Atherosclerotic heart disease of native coronary artery without angina pectoris; Z53.9 Procedure and treatment not carried out, unspecified reason

== ENCOUNTER 2020-03-19 11:28 | Outpatient (CLI) | payer MEDICARE ==
[~2020-03-19] VITALS: Ht 167.6 cm; Wt 53.6 kg
[2020-03-19 13:21] VITALS: BP 128/52; Ht 167.6 cm; Wt 53.6 kg
--- NOTE | 2020-03-19 13:59 | NUR ---
1355 REPORT FROM ADRIENNE DOCKERY RN, PT. SLEEPING ON SIDE, IV SITE PATENT BLOOD INFUSING AT 225/CC/HR.
--- NOTE | 2020-03-19 15:00 | NUR ---
1435 1ST UNIT BLOOD HAS COMPLETED, LINE BEING FLUSHED WITH NS. 1445 2ND UNIT BLOOD CHECKED AT BEDSIDE BY THIS NURSE AND PAULINO ARZOLA RN, INIATED AT 50/CC/HR. 1550 DENIES PROBLEMS WITH TRANSFUSION RATE INCREASED TO 225/CC/HR.
--- NOTE | 2020-03-19 15:36 | NUR ---
1505 UP TO BR VOIDS QS, BACK TO BED, DENIES PROBLEMS. 1535 ROOM CHECK, PT. SLEEPING.
--- NOTE | 2020-03-19 17:45 | NUR ---
1630 BLOOD HAS COMPLETED, LINE BEING FLUSHED WITH NS. 1700 IV DC'D WITH CATH INTACT. DC INSTS GIVEN, VOICED UNDERSTANDING, RELEASED IN WC, DAUGHTER HARVESTER OPERATOR HOME.
== END 2020-03-19 17:00 | disposition home or self-care (01) ==
LOC: D.OPS 11:28
PROVIDERS: ATTEND Family Medicine
DX: D64.9 Anemia, unspecified (principal)

== ENCOUNTER 2020-03-20 10:39 | Day surgery (SDC) | payer MEDICARE ==
[~2020-03-20] VITALS: Ht 165.1 cm; Wt 53.6 kg
[2020-03-20 11:02] LABS: BASOPHILS 0.9 % (0-2); EOSINOPHILS 3.5 % (0-7); HEMATOCRIT 30.1 % (36.0-48.0); IMMATURE GRANULOCYTES 0.7 % (0-5); LYMPHOCYTES 32.9 % (15-50); MCH 21.8 pg (26.0-34.0); MCHC 29.9 g/dL (31.0-37.0); MCV 73.1 fL (80.0-100.0); MEAN PLATELET VOLUME 10.4 fL (7.4-10.4); MONOCYTES 7.5 % (2-11); NEUTROPHILS 54.5 % (40-80); PLATELET COUNT 216 10x3/uL (130-400); RBC 4.12 10x6/uL (4.00-5.40); RDW 20.1 % (11.5-14.5); WBC 4.3 10x3/uL (4.8-10.8)
[2020-03-20 11:06] LABS: CALC OSMOLALITY 275 mosm/kg (275-300); CALCIUM 8.8 mg/dL (8.5-10.1); CARBON DIOXIDE 24.8 mmol/L (21.0-32.0); CHLORIDE - SERUM 104 mmol/L (98-107); CREATININE - SERUM 1.1 mg/dL (0.6-1.3); GLUCOSE 98 mg/dL (74-106); POTASSIUM - SERUM 3.7 mmol/L (3.5-5.1); SODIUM 138 mmol/L (136-145); UREA NITROGEN 12 mg/dL (7-18); eGFR NON AFRICAN AMERICAN 53 mL/min (90-120)
[2020-03-20 11:17] VITALS: Ht 165.1 cm; Wt 53.6 kg
--- NOTE | 2020-03-20 14:55 | NUR ---
1440 DR. GIVENS ROUNDS ON PT WITH DAUGHTER.
--- NOTE | 2020-03-20 17:13 | HP ---
PATIENT: ANETTE LEWIS MEDICAL RECORD: [id number] ACCOUNT: [id number] [facility]ATION:[facility] : [birth year] ADMISSION DATE: 03/20/20 PCP: RICARDO WALLS MD HISTORY AND PHYSICAL EXAMINATION CHIEF COMPLAINT: Bleeding. 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 She is now having melena. Additionally, she had come to the hospital and received blood transfusion. HOME MEDICINES: Please see the nursing list. ALLERGIES: BACTRIM WELL STATINS. SOCIAL HISTORY: She is a smoker. PAST MEDICAL AND SURGICAL HISTORY: She had a left upper lobe mass removed 2 years ago; history of non-Hodgkin's lymphoma; hypothyroidism, on replacement therapy; arthritis; history of hysterectomy; history of CABG; history of laparotomy; history of coronary artery stents; COPD, she is not on oxygen; coronary artery disease; and hypertension. PHYSICAL EXAMINATION: GENERAL: The patient does not appear acutely ill. She does not appear chronically ill. VITAL SIGNS: Reviewed. EARS: External ears appear normal. EYES: Extraocular movements are intact. NECK: Trachea is midline. CHEST: No intercostal retraction. IMPRESSION: 1. Jean's esophagus. 2. 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 PLAN: EGD and argon plasma coagulation therapy. TRANSINT:[id number] Voice Confirmation ID: [id number] DOCUMENT ID: [id number] SAAD GIVENS MD at 1713 CC: [id number] DICTATION DATE: 03/20/20 1408 DIE SINKER: 03/20/20 1535 [facility] 03/20/[address] [address]
--- NOTE | 2020-03-21 16:10 | OP ---
PATIENT NAME: ANETTE LEWIS MEDICAL RECORD: [id number] :[birth year] LOCATION:[facility] ADMISSION DATE: SURGEON: SAAD GIVENS MD DATE OF OPERATION: 03/20/2020 PREOPERATIVE DIAGNOSES: 1. Acute blood loss anemia requiring transfusions. 2. History of Jean's esophagus. 3. 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 POSTOPERATIVE DIAGNOSES: 1. Acute blood loss anemia requiring transfusions. 2. History of Jean's esophagus. 3. 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 4. Almost no regrowth or persistence of the gastric antral vascular ectasias. 5. Large bulbar ulcer, likely the source of bleeding. PROCEDURE: 1. Esophagogastroduodenoscopy with antral biopsies to rule out Helicobacter pylori. 2. Argon plasma coagulation therapy to several patches of gastric antral vascular ectasias, which are either recurrent or persistent. 3. Cold endoscopic biopsies of the EG junction to monitor the patient's Jean's. SURGEON: Saad Givens MD SLATE HANDLER: None. BLOOD LOSS: Minimal. ANESTHESIA: IV sedation. COMPLICATIONS: None. The risks, possible complications, and alternatives of the procedure were explained to the patient. She elects to proceed. ENDOSCOPIC COURSE: The patient was conveyed to the endoscopy suite electively on 03/20/2020. IV sedation was induced by the anesthesia staff. A bite block was inserted. A gastroscope was inserted into the mouth. It was advanced easily into the hypopharynx. The esophagus was easily intubated as were the stomach and duodenum. Upon withdrawal, retroflexed and angulus views were obtained. Cold endoscopic biopsies were obtained of the antrum. I then advanced the argon plasma legal instruments examiner. Utilizing the esophageal setting in the coagulation mode, I thoroughly coagulated perhaps 6 or 7 patches of gastric antral vascular ectasias. The endoscope was then withdrawn under direct vision. She is already on Carafate. I am going to recommend either an H2 yanick or proton pump inhibitor as well. TRANSINT:[id number] Voice Confirmation ID: [id number] DOCUMENT ID: [id number] OPERATIVE REPORT [id number] JOSHUAANETTESAAD CRENSHAW MD at 1610 CC: RICARDO WALLS MD, BAM KERN MD and TOSHIA LEIGH [id number] DICTATION DATE: 03/20/20 1430 ROUNDER HAND: 03/21/20 0056 [facility] 03/20/20 [id number] [place] [address]
== END 2020-03-20 15:30 | disposition home or self-care (01) ==
LOC: D.OPS 10:39
PROVIDERS: Anesthesiology; ATTEND Surgery
DX: D64.9 Anemia, unspecified (principal); K22.70 Barrett's esophagus without dysplasia; K31.819 Angiodysplasia of stomach and duodenum without bleeding; K26.0 Acute duodenal ulcer with hemorrhage; K92.1 Melena; Z72.0 Tobacco use

== ENCOUNTER 2020-08-03 11:42 | Outpatient (CLI) | payer MEDICARE ==
[~2020-08-03] VITALS: Ht 165.1 cm; Wt 57.7 kg
[~2020-08-03 11:42] MED LIST changes: +OMEPRAZOLE40 MG PO
[2020-08-03 13:31] VITALS: BP 107/56; Ht 165.1 cm; Wt 57.7 kg
== END 2020-08-03 17:25 | disposition home or self-care (01) ==
LOC: D.OPS 11:42
PROVIDERS: ATTEND Family Medicine
DX: D50.8 Other iron deficiency anemias (principal)